=== PATIENT | female | born 1970 | race Caucasian/White ===

== ENCOUNTER → 2016-07-16 | Outpatient (CLI) | payer BC ==
[~2016-07-16] MED LIST: AMIT50TA3 PO; BUTA-234; CLON1TAB3 PO; CTLP20T PO; FURO-124 PO; HYDR-3584 PO; IBUP-15 PO; LURA80TA3 PO; OMG1KC; OXYC-197 PO; POTA10CA43 PO; PRAM1.5T4; PROM25SU43 RC; PROP10TA8; ROSU5TAB PO; RPN.25T PO
--- NOTE | 2016-07-16 15:32 | Diagnostic Imaging Report ---
PROCEDURE: US Thyroid. TECHNIQUE: Multiple real-time grayscale images were obtained of the thyroid in various projections. INDICATION: Thyroid nodules follow-up. COMPARISON: 01/02/2016. FINDINGS: The right thyroid lobe is 3.6 x 1.3 x 1 cm. Left lobe is 2.8 x 1.3 x 0.9 cm. There is a 0.5 cm hypoechoic thyroid nodule in the upper right thyroid lobe and in the lower left lobe another nodule measuring 1.1 x 0.5 x 0.6 cm. Both nodules are similar to 01/02/2016. IMPRESSION: Stable bilateral thyroid nodules up to 1.1 cm in the lower left thyroid lobe likely related to multinodular goiter. Dictated by: Dictated on workstation # [id number]
== END ==
LOC: RAD 10:52
PROVIDERS: ATTEND Internal Medicine Endocrinology, Diabetes & Metabolism
DX: E04.1 Nontoxic single thyroid nodule (principal)
CPT/HCPCS: 76536

== ENCOUNTER 2017-04-04 13:38 | Outpatient (RCR) | payer BC ==
[~2017-04-04 13:38] MED LIST changes: -IBUP-15 PO; +IBUP-16 PO
== END 2017-07-03 | disposition home or self-care (01) ==
LOC: ONC 13:38
PROVIDERS: ATTEND Internal Medicine Hematology & Oncology
DX: D68.51 Activated protein C resistance (principal); F31.32 Bipolar disorder, current episode depressed, moderate; E66.9 Obesity, unspecified; Z68.41 Body mass index [BMI] 40.0-44.9, adult; Z86.718 Personal history of other venous thrombosis and embolism; Z79.899 Other long term (current) drug therapy
CPT/HCPCS: 99214

== ENCOUNTER 2017-05-17 12:03 | Outpatient (RCR) | payer BC | END 2017-06-18 | disposition home or self-care (01) | PROVIDERS: ATTEND Orthopaedic Surgery | DX: Z47.89 Encounter for other orthopedic aftercare (principal) ==

== ENCOUNTER 2017-10-03 09:30 | Outpatient (RCR) | payer BC ==
[~2017-10-03 09:30] MED LIST changes: +CLON1TAB13 PO; -CLON1TAB3 PO; -OXYC-197 PO; +OXYC1TAB87 PO
[2017-10-03 09:45] LABS: BASOPHILS % (AUTO) 0 % (0-10); EOSINOPHILS # (AUTO) 0.1 10^3/uL (0.0-0.3); EOSINOPHILS % (AUTO) 1 % (0-10); HEMATOCRIT 40 % (35-52); HEMOGLOBIN 13.3 G/DL (11.5-16.0); LYMPHOCYTES % (AUTO) 38 % (12-44); MEAN CORPUSCULAR HEMOGLOBIN 32 PG (25-34); MEAN CORPUSCULAR HGB CONC 33 G/DL (32-36); MEAN CORPUSCULAR VOLUME 96 FL (80-99); MEAN PLATELET VOLUME 9.8 FL (7.4-10.4); MONOCYTES # (AUTO) 0.5 X 10^3 (0.0-1.0); MONOCYTES % (AUTO) 9 % (0-12); NEUTROPHILS # (AUTO) 2.8 X 10^3 (1.8-7.8); NEUTROPHILS % (AUTO) 52 % (42-75); PLATELET COUNT 177 10^3/uL (130-400); RED BLOOD COUNT 4.18 10^6/uL (4.35-5.85); RED CELL DISTRIBUTION WIDTH 13.7 % (10.0-14.5); WHITE BLOOD COUNT 5.4 10^3/uL (4.3-11.0)
[2017-10-03 10:07] LABS: ALBUMIN 3.9 GM/DL (3.2-4.5); BILIRUBIN,TOTAL 0.3 MG/DL (0.1-1.0); CALCIUM 9.2 MG/DL (8.5-10.1); CREATININE SERUM 1.01 MG/DL (0.60-1.30); POTASSIUM 3.9 MMOL/L (3.6-5.0); TOTAL PROTEIN 6.3 GM/DL (6.4-8.2)
== END 2017-10-29 | disposition home or self-care (01) ==
LOC: ONC 09:30
PROVIDERS: ATTEND Internal Medicine Hematology & Oncology
DX: D68.51 Activated protein C resistance (principal); F31.32 Bipolar disorder, current episode depressed, moderate; E66.9 Obesity, unspecified; Z68.41 Body mass index [BMI] 40.0-44.9, adult; Z86.718 Personal history of other venous thrombosis and embolism; Z79.899 Other long term (current) drug therapy
CPT/HCPCS: 36415; 80053; 85025; 99213

== ENCOUNTER 2018-01-09 13:53 | Emergency (ER) | payer BC ==
[~2018-01-09] VITALS: Ht 162.6 cm; Wt 104.3 kg
--- OUTSIDE RECORDS SUMMARY | 2018-01-09 14:03 | XMS REPORT | Clinical Summary ---
Author Author [facility] Organization [facility] Address Unknown Phone Unavailable Care Team Providers Care Petroleum Terminal Plant Operator Name Role Phone Yaquelin Dye MD PCP Source Comments Some departments are not documenting in the electronic medical record. If you do not see the information that you expected, contact Release of Information in the Health Information Management department at [phone] for further assistance in locating additional records.[facility] Allergies Active Allergy Reactions Severity Noted Date Comments Tramadol UNKNOWN Low 10/24/2016 Current Medications Prescription Sig. Disp. Refills Start End Date Status Date levothyroxine (SYNTHROID) Take 50 mcg by mouth Active 75 mcg tablet daily 30 minutes before breakfast. rivaroxaban (XARELTO) 15 Take 20 mg by mouth twice Active mg tablet daily. Take with food. furosemide (LASIX) 40 mg Take 40 mg by mouth every Active tablet morning. clonazePAM (KLONOPIN) 0.5 Take 0.5 mg by mouth Active mg tablet three times daily. tiZANidine (ZANAFLEX) 2 Take 2 mg by mouth three Active mg tablet times daily. divalproex (DEPAKOTE ER) Take 1,000 mg by mouth at Active 500 mg ER tablet bedtime daily. Take with food. rosuvastatin (CRESTOR) 5 Take 5 mg by mouth daily. Active mg tablet butalbital/acetaminophen/ Take 1 Tab by mouth every Active caffeine(+) (FIORICET) 4 hours as needed for 50/325/40 mg tablet Headache. rizatriptan (MAXALT) 10 Take 10 mg by mouth once Active mg tablet as needed. May repeat in 2 hours in needed diclofenac(+) (VOLTAREN) 10/21/19 Active 1 % topical gel 17 BOTOX 100 unit injection 10/24/19 Active 17 potassium chloride(+) 10/10/19 Active (MICRO-K) 10 mEq capsule 17 buPROPion SR(+) Take 150 mg by mouth Active (WELLBUTRIN-SR) 150 mg twice daily. tablet PASSION FLOWER PO Take 360 mg by mouth Active twice daily. valbenazine (INGREZZA) 80 Take 80 mg by mouth 30 capsule 5 09/24/19 Active mg cap daily. 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 After developing the tardive dyskinesia her headaches became more severe and more frequent, occurring 20 or more days a month, they were unilateral, pounding associated with nausea, phonophobia and photophobia. Since starting Botox injections she now has a headache every two to three weeks. Essential tremor 03/27/2017 Overview: This has become more of a problem in late 2016. It interferes with her ability to write, eat and drink. While she may have a tremor at rest it is the action induced tremor that is most bothersome to her. 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 Had also been on Brexipiprazole in 2014 as well. Movements of face, mouth, both arms and ocassional feet. Most bothersome is constant blinking. Cogentin-no benefit Clonazepam-no benefit Trihexyphenidyl, no benefit L ast Assessment & Plan: Overall she is doing better on the valbenazine. However her blepharospasm component is still bothersome and she had meagre benefit from her last round on February 05, which has by now worn off. She will contact Herlinda Vickers and I will take over her blepharospasm and headache injections. Encounters Date Type Specialty Care Team Description 11/13/2017 Refill Neurology Cuco Gregg MD 11/07/2017 Procedure visit Neurology Cuco Gregg MD Intractable migraine with aura with status migrainosus (Primary Dx); Essential tremor; Blepharospasm 10/29/2017 Telephone Neurology Cuco Gregg MD Worsening Symptoms 10/16/2017 Refill Neurology Cuco Gregg MD from Last 3 Months Family History Medical History Relation Name Comments Thyroid Disease Daughter Cancer Father Cancer-Thyroid Father Heart Disease Father Hypertension Father Neuropathy Father Thyroid Disease Father Tremor Father Hypertension Mother Migraines Sister Thyroid Disease Sister Relation Name Status Comments Daughter Father Mother Sister Social History Tobacco Use Types Packs/Day Years Used Date Never Smoker Smokeless Tobacco: Never Used Alcohol Use Drinks/Week oz/Week Comments Yes Sex Assigned at Date Recorded Not on file Last Filed Vital Signs Vital Sign Reading Time Taken Blood Pressure 113/71 03/27/2017 10:49 AM SEAM CLOSER Pulse 60 03/27/2017 10:49 AM SEAM CLOSER Temperature - - Respiratory Rate - - Oxygen Saturation - - Inhaled Oxygen - - Concentration Weight 112 kg (247 lb) 03/27/2017 10:49 AM SEAM CLOSER Height 162.6 cm (5' 4") 03/27/2017 10:49 AM SEAM CLOSER Body Mass Index 42.4 03/27/2017 10:49 AM SEAM CLOSER Plan of Treatment Health Maintenance Due Date Last Done Comments PHYSICAL (COMPREHENSIVE) 1977 EXAM PERTUSSIS VACCINE 1981 HIV SCREENING 1985 TETANUS VACCINE 12/11/1987 CERVICAL CANCER SCREENING 2000 BREAST CANCER SCREENING 2010 INFLUENZA VACCINE 10/30/2017 12/23/2013, 12/19/2011, 02/07/2011 Procedures Procedure Name Priority Date/Time Associated Diagnosis Comments [place] CHEMODNRVTJ [facility] Routine 11/07/2017 Blepharospasm Results for this INNERVATED FACIAL NRV 10:30 AM CDT Intractable migraine with procedure are in the UNIL aura with status results section. migrainosus ID CHEMODERVATE Routine 11/07/2017 Blepharospasm Results for this FACIAL/TRIGEM/CERV MUSC 10:30 AM CDT Intractable migraine with procedure are in the MIGRAINE aura with status results section. migrainosus from Last 3 Months Results * CHEMODENERVATION (11/07/2017 10:30 AM) Narrative Performed At Cuco Gregg MD 11/07/2017 11:00 AM IN CLINIC Botulinum Toxin injection for blepharospasm Diagnosis Blepharospam Description of Movements: involuntary blinking to the point of causing visual impairment Biological: Botox (botulinum toxin strain A) Dose in Units: 195 total Units drawn up 200 Units discarded 5 Last Round: 08/08/17 Benefit: Limited Adverse effects none [facility]ear off date unknown [facility] Rating Scale (0-4):4 Additional notes eyelid blinking is still very bothersome with impairment of vision and trouble driving Procedure Using a concentration of 5 units/0.1cc Botox was injected into these muscles: Right Left Pre-tarsal orbicularis oculi 2 x 3.75 2 x 3.75 Facial portion of orbicularis oculi 7.6 and 5 7.5 and 5 Infra-orbital portion of the orbicularis oculi - - Director Of Community Services supercilli - - Legend for injections: - indicates that clinically the muscle was not actively involved 2 x 2.5indicates that two injections of2.5 units were performed Adverse effects at time of injection: none Botulinum toxin injection for chronic daily headaches Prior to injection with Botox they had more than 20 headache days per month, with an average duration of 4 hours or more, and at least half had migrainous features. Headache frequency between the start of benefit and the wearing off of the last round of injections: only one headache day a month Benefit: Very good Adverse effects none Wear off date a few days ago Additional notes see below Procedure Note: The biological was diluted with preservative free normal saline to a concentration of 5 units/ 0.1 cc, the patient received 31 injections of five units of Botox into the face, head, neck and shoulder locations for the PREEMPT protocol (Sandra LADD, and coauthors. Cephalalgia, 2010;30:793) Right Left Procerus One in the midline Director Of Community Services supercilli one one Frontalis two two Temporalis four four Occipitalis three three Sub-occipital two two Tapezius three three Adverse effects at time of injection: some brusining Target time for next injection: 13 weeks Was patient given the biological specific REMS sheet? 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 The tremor is severe enough that it impairs her ability to feed herself, write and to use a keyboard On examination her tremor is slow, more rest and postural than action, with pronation and supination of her foreatrms Performing Organization Address [facility] from Last 3 Months
--- OUTSIDE RECORDS SUMMARY | 2018-01-09 14:03 | XMS REPORT | Encounter Summary ---
Author Author [facility] Organization [facility] Address Unknown Phone Unavailable Care Team Providers Care Processing Technician Name Role Phone Yaquelin Dye MD PCP Reason for Visit * Reason Comments Medication Refill Encounter Details Date Type Department Care Team Description 10/16/2017 Refill [facility] Cuco Gregg MD Physicians-Neurology [address] [facility]note 3[facility] on A[facility] [place] [address] [place] [address] [place], [place] [phone] Social History Tobacco Use Types Packs/Day Years Used Date Never Smoker Smokeless Tobacco: Never Used Alcohol Use Drinks/Week oz/Week Comments Yes Sex Assigned at Date Recorded Not on file as of this encounter Miscellaneous Notes * Telephone Encounter - Cuco Gregg MD - 10/16/2017 11:52 AM CDT OK to refill * Telephone Encounter - Sarah Felton LPN - 10/16/2017 8:33 AM CDT Is this ok to refill? in this encounter Plan of Treatment Not on fileas of this encounter Visit Diagnoses Not on filein this encounter
--- OUTSIDE RECORDS SUMMARY | 2018-01-09 14:03 | XMS REPORT | Encounter Summary ---
Author Author [facility] Organization [facility] Address Unknown Phone Unavailable Care Team Providers Care Edger Runner Name Role Phone Yaquelin Dye MD PCP Reason for Visit * Reason Comments Medication Refill Encounter Details Date Type Department Care Team Description 11/13/2017 Refill [facility] Cuco Gregg MD Physicians-Neurology [address] [facility] A[facility] [place] [address] [place] [address] [place], [place] [phone] Social History Tobacco Use Types Packs/Day Years Used Date Never Smoker Smokeless Tobacco: Never Used Alcohol Use Drinks/Week oz/Week Comments Yes Sex Assigned at Date Recorded Not on file as of this encounter Plan of Treatment Not on fileas of this encounter Visit Diagnoses Not on filein this encounter
--- OUTSIDE RECORDS SUMMARY | 2018-01-09 14:03 | XMS REPORT ---
Author Author JOSH CHOI [facility] Address [address] [place] [address] Care Team Providers Care Ornamental Ironworking Supervisor Name Role Phone JOSH CHOI Unavailable PROBLEMS ALLERGIES No Information ENCOUNTERS IMMUNIZATIONS No Known Immunizations SOCIAL HISTORY No smoking Hx information available REASON FOR VISIT PLAN OF CARE VITAL SIGNS MEDICATIONS RESULTS No Results PROCEDURES No Known procedures INSTRUCTIONS MEDICATIONS ADMINISTERED No Known Medications MEDICAL (GENERAL) HISTORY
--- OUTSIDE RECORDS SUMMARY | 2018-01-09 14:03 | XMS REPORT | Encounter Summary ---
Author Author [facility] Organization [facility] Address Unknown Phone Unavailable Care Team Providers Care Professor Of Criminal Justice Name Role Phone Yaquelin Dye MD PCP Reason for Visit * Reason Comments Procedure Encounter Details Date Type Department Care Team Description 11/07/2017 Procedure visit [facility] Cuco Gregg MD Intractable migraine with Physicians-Neurology [address] [facility] aura with status [facility] [place] migrainosus (Primary Dx); [address] [place] [address] Essential tremor; [place], [place] [phone] Blepharospasm [id number] [phone] Social History Tobacco Use Types Packs/Day Years Used Date Never Smoker Smokeless Tobacco: Never Used Alcohol Use Drinks/Week oz/Week Comments Yes Sex Assigned at Date Recorded Not on file as of this encounter Procedure Notes * Cuco Gregg MD - 11/07/2017 10:30 AM CDT Associated Order(s): CHEMODENERVATION Procedure(s): [place] CHEMODNRVTJ MUSC MUSC INNERVATED FACIAL NRV UNIL; [place] CHEMODERVATE FACIAL/TRIGEM/CERV MUSC MIGRAINE Pre-Procedure Diagnose(s): Blepharospasm; Intractable migraine with aura with status migrainosus Formatting of this note may be different from the original. Botulinum Toxin injection for blepharospasm Diagnosis Blepharospam Description of Movements: involuntary blinking to the point of causing visual impairment Biological: Botox (botulinum toxin strain A) Dose in Units: 195 total Units drawn up 200 Units discarded 5 Last Round: 08/08/17 Benefit: Limited Adverse effects none Wear off date unknown Current [facility] Blepharospasm Rating Scale (0-4):4 Additional notes eyelid blinking is still very bothersome with impairment of vision and trouble driving Procedure Using a concentration of 5 units/0.1cc Botox was injected into these muscles: Right Left Pre-tarsal orbicularis oculi 2 x 3.75 2 x 3.75 Facial portion of orbicularis oculi 7.6 and 5 7.5 and 5 Infra-orbital portion of the orbicularis oculi - - Recreational Specialist supercilli - - Legend for injections: - indicates that clinically the muscle was not actively involved 2 x 2.5 indicates that two injections of 2.5 units were performed Adverse effects at time [...] Right Left Procerus One in the midline Recreational Specialist supercilli one one Frontalis two two Temporalis four four Occipitalis three three Sub-occipital two two Tapezius three three Adverse effects at time of injection: some brusining Target time for next injection: 13 weeks Was patient given the biological specific REMS sheet? No Lot number:[id number] Expiry date:08/2020 Overall her blinking has worsened [...] with pronation and supination of her foreatrms in this encounter Plan of Treatment Not on fileas of this encounter Procedures Procedure Name Priority Date/Time Associated Diagnosis Comments [place] CHEMODNRVTJ MUSC MUSC Routine 11/07/2017 Blepharospasm Results for this INNERVATED FACIAL NRV 10:30 AM CDT Intractable migraine with procedure are in the UNIL aura with status results section. migrainosus [place] CHEMODERVATE Routine 11/07/2017 Blepharospasm Results for this FACIAL/TRIGEM/CERV MUSC 10:30 AM CDT Intractable migraine with procedure are in the MIGRAINE aura with status results section. migrainosus in this encounter Results * CHEMODENERVATION (11/07/2017 10:30 AM) Narrative [...] effects none Wear off date unknown Current [facility] Blepharospasm Rating Scale (0-4):4 Additional notes eyelid blinking is still very bothersome with impairment of vision and trouble driving Procedure Using a concentration of 5 units/0.1cc Botox was injected into these muscles: Right Left Pre-tarsal orbicularis oculi 2 x 3.75 2 x 3.75 Facial portion of orbicularis oculi 7.6 and 5 7.5 and 5 Infra-orbital portion of the orbicularis oculi - - Recreational Specialist supercilli - - Legend for injections: - [...] Right Left Procerus One in the midline Recreational Specialist supercilli one one Frontalis two two Temporalis four four Occipitalis three three Sub-occipital two two Tapezius three three Adverse effects at time of injection: some brusining Target time for next injection: 13 weeks Was patient given the biological specific REMS sheet? No Lot number:[id number] Expiry date:08/2020 Overall her blinking has worsened [...] supination of her foreatrms Performing Organization Address City/State/Zipcode Phone Number IN CLINIC in this encounter Visit Diagnoses Diagnosis Intractable migraine with aura with status migrainosus - Primary Migraine with aura, with intractable migraine, so stated, with status migrainosus Essential tremor Essential and other specified forms of tremor Blepharospasm Administered Medications Medication Order MAR Action Action Date Dose Rate Site botulinum toxin A (BOTOX) injection 195 Given 11/07/2017 195 Units Face Units 11:00 CDT 195 Units, Intramuscular, ONCE, 1 dose, [place] 11/07/17 at 1045 in this encounter
--- OUTSIDE RECORDS SUMMARY | 2018-01-09 14:03 | XMS REPORT | Encounter Summary ---
Author Author [facility] Organization [facility] Address Unknown Phone Unavailable Care Team Providers Care Sports Writer Name Role Phone Yaquelin Dye MD PCP Reason for Referral * Consult, Test & Treat Status Reason Specialty Diagnoses / Referred By Referred To Procedures Contact Contact No Auth Needed Specialty Neurology Diagnoses Ade Gregg Rajesh, MD Services Essential tremor Cuco Silva MD [address] [facility] Required [address] [facility] [address] [place], [place] [id number] [place], [place] Phone: [phone] Phone: Scheduling Instructions Contact Phone Numbers for each area if questions arise: General: [phone] Epilepsy: [phone] Multiple Sclerosis: [phone] Parkinson's: [phone] [facility]: 6348 Stroke & Neuromuscular: [phone] [place]: [phone] Reason for Visit * Reason Comments Worsening Symptoms Encounter Details Date Type Department Care Team Description 10/29/2017 Telephone [facility] Cuco Gregg MD Worsening Symptoms Physicians-Neurology [address] [facility] on A[facility] [place] [address] [place] [address] [place], [place] [phone] Social History Tobacco Use Types Packs/Day Years Used Date Never Smoker Smokeless Tobacco: Never Used Alcohol Use Drinks/Week oz/Week Comments Yes Sex Assigned at Date Recorded Not on file as of this encounter Miscellaneous Notes * Telephone Encounter - Sarah FeltonRICK - 10/30/2017 8:33 AM CDT This nurse informed patient of Dr. Gregg's recommendation. Patient verbalized understanding and would like to move forward with a consult to see Dr. Booker. Referral sent and patient to be scheduled. * Telephone Encounter - Sarah FeltonRICK - 10/29/2017 3:26 PM CDT Okay, I will get an approval from the patient. Is patient to keep her upcoming appointment with you in addition to seeing Dr. Booker? * Telephone Encounter - Cuco Gregg MD - 10/29/2017 2:32 PM CDT I would like to refer her to Dr. Booker for his opinion and management of her tremor. If this is acceptable, I can place the consult request in O2. * Telephone Encounter - Sarah FletonRICK - 10/29/2017 2:16 PM CDT Patient called stating her tremors have gotten worse and states she does not think the primidone is helping anymore. Patient wanting to see about trying something different prior to her upcoming appointment in hopes she will have some relief before then. Please advise. in this encounter Plan of Treatment Name Priority Associated Diagnoses Order Schedule AMB REFERRAL TO NEUROLOGY Routine Essential tremor Ordered: 10/30/2017 as of this encounter Visit Diagnoses Diagnosis Essential tremor - Primary Essential and other specified forms of tremor
--- OUTSIDE RECORDS SUMMARY | 2018-01-09 14:04 | XMS REPORT ---
Author Author JOSH CHOI [facility] Address [address] [place] [address] Care Team Providers Care Intelligent Systems Engineer Name Role Phone JOSH CHOI Unavailable PROBLEMS Type Condition ICD9-CM Code OML66-VI Code Onset Dates Condition Status SNOMED Code Problem Long-term use of high-risk medication Z79.899 Active 232077802 Problem Social anxiety disorder F40.10 Active 56256289 Problem Bipolar affective disorder, current episode hypomanic F31.0 Active 86300821 Problem Bipolar disorder, current episode depressed, severe, without psychotic features F31.4 Active 312405647 Problem Tardive dyskinesia G24.01 Active 240970040 Problem Bipolar 1 disorder, depressed, moderate F31.32 Active 57000956 Problem Bipolar disorder, in partial remission, most recent episode depressed F31.75 Active 14225495 Problem BMI 40.0-44.9, adult Z68.41 Active 536719035 ALLERGIES Substance Reaction Event Type Date Status Latuda TD Drug Allergy Oct, Active Tramadol HCl Unknown Drug Allergy Oct, Active ENCOUNTERS Encounter Location Date Diagnosis [place] [id number] [address] Dec, [facility] [address] [address] Nov, [facility] [address] [address] 18 Nov, 2017 Bipolar affective disorder, current episode hypomanic F31.0 ; Social anxiety disorder F40.10 ; Tardive dyskinesia G24.01 and Long-term use of high-risk medication Z79.899 [facility] [id number] [address] Nov, [facility] [address] [address] Oct, Bipolar 1 disorder, depressed, moderate F31.32 ; Social anxiety disorder F40.10 ; Tardive dyskinesia G24.01 and Long-term use of high- risk medication Z79.899 [place] [address] [address] Sep, [place] [id number] [place] [address]51- [address]191 Aug, Bipolar disorder, in partial remission, most recent episode depressed F31.75 ; Social anxiety disorder F40.10 ; Long-term use of high-risk medication Z79.899 and Tardive dyskinesia G24.01 [place] [address] [place] [address]19- 9219 July, [place] [id number] [place] [address] 18452- 1761 July, BMI 40.0-44.9, adult Z68.41 ; Social anxiety disorder F40.10 ; Bipolar disorder, in partial remission, most recent episode depressed F31.75 ; Parkinson disease G20 ; Tardive dyskinesia G24.01 and Long-term use of high-risk medication Z79.899 [place] [address] [place] [address] 58782- 6433 May, [place] [address] [place] [address] 64632- 2930 May, [place] [address] [place] [address] 56799- 9589 May, [place] [id number] [place] [address] 87761- 8170 13 May, 2017 Bipolar disorder, current episode depressed, severe, without psychotic features F31.4 ; Social anxiety disorder F40.10 ; Long-term use of high-risk medication Z79.899 ; Tardive dyskinesia G24.01 and Parkinson disease G20 [place] [id number] [place] [address] 53165- 3887 May, [place] [id number] [place] [address] 02670- 0101 May, Bipolar 1 disorder, depressed, moderate F31.32 ; BMI 40.0- 44.9, adult Z68.41 ; Social anxiety disorder F40.10 ; Long-term use of high- risk medication Z79.899 ; Parkinson disease G20 and Tardive dyskinesia G24.01 [place] [id number] [place] [address] 55287- 0202 May, BMI 40.0-44.9, adult Z68.41 ; Bipolar 1 disorder, depressed , moderate F31.32 ; Social anxiety disorder F40.10 ; Long-term use of high-risk medication Z79.899 and Tardive dyskinesia G24.01 [place] [id number] [place] [address] 11719- 2483 Apr, [place] [id number] [place] [address] 46511- 5955 Mar, Bipolar 1 disorder, depressed, moderate F31.32 ; Social anxiety disorder F40.10 ; Long-term use of high-risk medication Z79.899 ; Tardive dyskinesia G24.01 and Parkinson disease G20 [place] [address] [address] Mar, [place] [id number] [place] [address] 81470- 2189 Dec, Bipolar 1 disorder, depressed, moderate F31.32 ; Social anxiety disorder F40.10 ; Tardive dyskinesia G24.01 ; Parkinson disease G20 and Long-term use of high-risk medication Z79.899 [place] [address] [place] [address] 18187- 1506 Nov, [place] [id number] [place] [address] 42189- 2055 Oct, [facility] [address] [address] Sep, Bipolar 1 disorder, depressed, moderate F31.32 ; Social anxiety disorder F40.10 ; Tardive dyskinesia G24.01 and Long-term use of high- risk medication Z79.899 [facility] [address] [address] July, Bipolar 1 disorder, depressed, moderate F31.32 ; Social anxiety disorder F40.10 and Long-term use of high-risk medication Z79.899 [facility] [address] [address] July, [facility] [address] [address] Jun, [facility] [id number] [place] [address] 28171- 4736 Jun, [facility] [address] [address] 20[address] Jun, [facility] [address] [address] Jun, Bipolar 1 disorder, depressed, moderate F31.32 ; Social anxiety disorder F40.10 and Long-term use of high-risk medication Z79.899 [facility] [address] [address] 7[address] Jun, [facility] [address] [address]- [address] Jun, [facility] [address] [address] 5[address] May, [facility] [address] [address]- 80[address] May, Bipolar 1 disorder, depressed, moderate F31.32 ; Social anxiety disorder F40.10 and Long-term use of high-risk medication Z79.899 IMMUNIZATIONS No Known Immunizations SOCIAL HISTORY Never Assessed REASON FOR VISIT f/u CALE Nix PLAN OF CARE Activity Details Follow Up 4 Weeks Reason: VITAL SIGNS Height 64.0 in 2017-11-14 Weight 228.6 lbs 2017-11-14 Heart Rate 76 bpm 2017-11-14 Respiratory Rate 20 2017-11-14 BMI 39.23 kg/m2 2017-11-14 Blood pressure systolic 114 mmHg 2017-11-14 Blood pressure diastolic 68 mmHg 2017-11-14 MEDICATIONS Medication Instructions Dosage Frequency Start Date End Date Duration Status [place] Carbonate 300 MG Orally Once a day 1 capsule at bedtime 24h May Active Tizanidine HCl 2 MG Orally Three times a day 1 tablet as needed 8h Active Depakote ER 500 mg Orally Once a day. 2 tablets Active Wellbutrin SR 200 mg Orally Twice a day 1 tablet 12h July, Active Potassium Chloride 10 MEQ Orally Twice a day 1 capsule with food 12h Active Passion Flower-Valerian 360mg Orally 2 times a day 1 capsule 12h Active Botox 100 UNIT Active Xarelto 20 MG Orally Once a day 1 tablet with food 24h Active Furosemide 40 MG Orally Once a day 1 tablet 24h Active Fioricet/Codeine 88-027-07-30 MG Orally every 4 hrs 1 capsule as needed 4h Active Primidone 50 mg Orally once a day 3 tablet 24h Active Levothyroxine Sodium 50 MCG Orally Once a day 1 tablet on an empty stomach in the morning 24h Active Crestor 5 MG Orally Once a day 1 tablet 24h Active Klonopin 0.5 MG Orally 1-2 times per day as needed for anxiety and movement disorder 1 tablet Active Ingrezza 40 MG Orally Once a day in the PM 2 capsules Active Mirtazapine 7.5 MG Orally Once a day 1 tablets at bedtime 24h Oct, 30 day(s) Active Maxalt 5 MG Orally for migraine 1 tablet as needed one time Active RESULTS No Results PROCEDURES No Known procedures INSTRUCTIONS MEDICATIONS ADMINISTERED No Known Medications MEDICAL (GENERAL) HISTORY Type Description Date Medical History Bipolar I Disorder depressed moderate Medical History Obesity Medical History 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
--- OUTSIDE RECORDS SUMMARY | 2018-01-09 14:04 | XMS REPORT ---
Author Author JOSH CHOI Organization [facility] Address [address] [place] [address] Care Team Providers Care Director Of Income Tax Name Role Phone JOSH CHOI Unavailable PROBLEMS Type Condition ICD9-CM Code OPK45-VW Code Onset Dates Condition Status SNOMED Code Problem Long-term use of high-risk medication Z79.899 Active 515924198 Problem Social anxiety disorder F40.10 Active 36279574 Problem Bipolar affective disorder, current episode hypomanic F31.0 Active 08855905 Problem Bipolar disorder, current episode depressed, severe, without psychotic features F31.4 Active 412508221 Problem Tardive dyskinesia G24.01 Active 310816054 Problem Bipolar 1 disorder, depressed, moderate F31.32 Active 22541941 Problem Bipolar disorder, in partial remission, most recent episode depressed F31.75 Active 28760903 Problem BMI 40.0-44.9, adult Z68.41 Active 015761015 ALLERGIES No Information ENCOUNTERS Encounter Location Date Diagnosis [place] [address] [place] [address] 39389- 5978 Dec, [place] [address] [place] [id number] [place] [address] 47996- 2372 Nov, [place] [id number] [place] [address] 15467- 2711 18 Nov, 2017 Bipolar affective disorder, current episode hypomanic F31.0 ; Social anxiety disorder F40.10 ; Tardive dyskinesia G24.01 and Long-term use of high-risk medication Z79.899 [place] [address] [place] [id number] [place] [address] 19017- 2937 Nov, [place] [address] [place] [id number] [place] [address] 75433- 2844 Oct, Bipolar 1 disorder, depressed, moderate F31.32 ; Social anxiety disorder F40.10 ; Tardive dyskinesia G24.01 and Long-term use of high- risk medication Z79.899 [facility] [address] [place] [address] 25184- 7243 Sep, [facility] [address], [place] [address]- 7931 Aug, Bipolar disorder, in partial remission, most recent episode depressed F31.75 ; Social anxiety disorder F40.10 ; Long-term use of high-risk medication Z79.899 and Tardive dyskinesia G24.01 [facility] [id number] [place] [address] 16370- 7670 July, [facility] [id number] [place] [address] 79607- 9055 July, BMI 40.0-44.9, adult Z68.41 ; Social anxiety disorder F40.10 ; Bipolar disorder, in partial remission, most recent episode depressed F31.75 ; Parkinson disease G20 ; Tardive dyskinesia G24.01 and Long-term use of high-risk medication Z79.899 [facility] [id number] [place] [address] 43914- 1464 May, [facility] [address], [place] [address]- 8040 May, [facility] [id number] [place] [address] 20490- 7816 May, [facility] [id number] [place] [address] 75848- 1379 13 May, 2017 Bipolar disorder, current episode depressed, severe, without psychotic features F31.4 ; Social anxiety disorder F40.10 ; Long-term use of high-risk medication Z79.899 ; Tardive dyskinesia G24.01 and Parkinson disease G20 [facility] [address] [place] [address] 97402- 8675 May, [place] [address] [place] [address] 26600- 6698 May, Bipolar 1 disorder, depressed, moderate F31.32 ; BMI 40.0- 44.9, adult Z68.41 ; Social anxiety disorder F40.10 ; Long-term use of high- risk medication Z79.899 ; Parkinson disease G20 and Tardive dyskinesia G24.01 [place] [id number] [place] [address] 19307- 9094 May, BMI 40.0-44.9, adult Z68.41 ; Bipolar 1 disorder, depressed , moderate F31.32 ; Social anxiety disorder F40.10 ; Long-term use of high-risk medication Z79.899 and Tardive dyskinesia G24.01 [place] [id number] [place] [address] 81871- 7206 Apr, [place] [address] [address]- 9973 Mar, Bipolar 1 disorder, depressed, moderate F31.32 ; Social anxiety disorder F40.10 ; Long-term use of high-risk medication Z79.899 ; Tardive dyskinesia G24.01 and Parkinson disease G20 [place] [id number] [place] [address] 60855- 1843 Mar, [place] [id number] [place] [address] 06133- 1655 Dec, Bipolar 1 disorder, depressed, moderate F31.32 ; Social anxiety disorder F40.10 ; Tardive dyskinesia G24.01 ; Parkinson disease G20 and Long-term use of high-risk medication Z79.899 [place] [id number] [place] [address] 20908- 8442 Nov, [place] [address] [id number] [place] [address] 53670- 8396 Oct, [place] [id number] [place] [address] 21451- 4825 Sep, Bipolar 1 disorder, depressed, moderate F31.32 ; Social anxiety disorder F40.10 ; Tardive dyskinesia G24.01 and Long-term use of high- risk medication Z79.899 [facility] [address], [place] [address]- 9483 July, Bipolar 1 disorder, depressed, moderate F31.32 ; Social anxiety disorder F40.10 and Long-term use of high-risk medication Z79.899 [facility] [address], [place] [address]- 5336 July, [facility] [address] [place] [id number] [place] [address] 43661- 7908 Jun, [facility] [address], [place] [address]- 4999 Jun, [place] [address], [place] [address]- 6682 Jun, [facility] [address], [place] [address]- 6978 Jun, Bipolar 1 disorder, depressed, moderate F31.32 ; Social anxiety disorder F40.10 and Long-term use of high-risk medication Z79.899 [facility] [address], [place] [address]- 7747 Jun, [facility] [address], [place] [address]- 1474 Jun, [facility] [address], [place] [address]- 8195 May, [facility] [address], [place] [address]- 8318 May, Bipolar 1 disorder, depressed, moderate F31.32 ; Social anxiety disorder F40.10 and Long-term use of high-risk medication Z79.899 IMMUNIZATIONS No Known Immunizations SOCIAL HISTORY Never Assessed REASON FOR VISIT med refill PLAN OF CARE VITAL SIGNS MEDICATIONS Medication Instructions Dosage Frequency Start Date End Date Duration Status [place] Carbonate 300 MG Orally Once a day 1 capsule at bedtime 24h May 30 days Active RESULTS No Results PROCEDURES No Known [...]
--- OUTSIDE RECORDS SUMMARY | 2018-01-09 14:04 | XMS REPORT ---
Author Author JOSH CHOI [facility] Address [address] [place] [address] Care Team Providers Care Team Lead Name Role Phone JIMBO JOSH Unavailable PROBLEMS Type Condition ICD9-CM Code ISD80-TL Code Onset Dates Condition Status SNOMED Code Problem Social anxiety disorder F40.10 Active 14043157 Problem Bipolar disorder, current episode depressed, severe, without psychotic features F31.4 Active 160015515 Problem Bipolar disorder, in partial remission, most recent episode depressed F31.75 Active 52248718 Problem Bipolar 1 disorder, depressed, moderate F31.32 Active 53672053 Problem Long-term use of high-risk medication Z79.899 Active 877676134 Problem BMI 40.0-44.9, adult Z68.41 Active 719332484 Problem Tardive dyskinesia G24.01 Active 520360222 ALLERGIES No Information ENCOUNTERS Encounter Location Date Diagnosis [place] [address] [place] [address] 87811- 8136 Nov, [place] [address] [place] [address] 31693- 7081 Oct, Bipolar 1 disorder, depressed, moderate F31.32 ; Social anxiety disorder F40.10 ; Tardive dyskinesia G24.01 and Long-term use of high- risk medication Z79.899 [place] [address] [place] [address] 39895- 7766 Sep, [place] [address] [place] [address] [id number] [place] [address] 77457- 9735 14 Aug, 2017 Bipolar disorder, in partial remission, most recent episode depressed F31.75 ; Social anxiety disorder F40.10 ; Long-term use of high-risk medication Z79.899 and Tardive dyskinesia G24.01 [place] [address], [place] [address]- 3530 July, [place] [address] [place] [address] [id number] [place] [address] 87481- 8143 July, BMI 40.0-44.9, adult Z68.41 ; Social anxiety disorder F40.10 ; Bipolar disorder, in partial remission, most recent episode depressed F31.75 ; Parkinson disease G20 ; Tardive dyskinesia G24.01 and Long-term use of high-risk medication Z79.899 [place] [address] [place] [id number] [place] [address] 33036- 6274 May, [place] [address] [place] [id number] [place] [address] 59000- 5343 May, [place] [address] [place] [id number] [place] [address] 43999- 3112 May, [place] [address] [place] [id number] [place] [address] 35155- 4780 May, Bipolar disorder, current episode depressed, severe, without psychotic features F31.4 ; Social anxiety disorder F40.10 ; Long-term use of high-risk medication Z79.899 ; Tardive dyskinesia G24.01 and Parkinson disease G20 [place] [address], [place] [address]- 6891 May, [place] [address] [place] [address] 60540- 5958 May, Bipolar 1 disorder, depressed, moderate F31.32 ; BMI 40.0- 44.9, adult Z68.41 ; Social anxiety disorder F40.10 ; Long-term use of high- risk medication Z79.899 ; Parkinson disease G20 and Tardive dyskinesia G24.01 [place] [address], [place] [address]- 3866 May, BMI 40.0-44.9, adult Z68.41 ; Bipolar 1 disorder, depressed , moderate F31.32 ; Social anxiety disorder F40.10 ; Long-term use of high-risk medication Z79.899 and Tardive dyskinesia G24.01 [facility] [id number] [place] [address] 83811- 5161 Apr, [facility] [id number] [place] [address] 75671- 8749 Mar, Bipolar 1 disorder, depressed, moderate F31.32 ; Social anxiety disorder F40.10 ; Long-term use of high-risk medication Z79.899 ; Tardive dyskinesia G24.01 and Parkinson disease G20 [facility] [id number] [place] [address] 43163- 4076 Mar, [place] [address] [place] [id number] [place] [address] 01813- 1010 Dec, Bipolar 1 disorder, depressed, moderate F31.32 ; Social anxiety disorder F40.10 ; Tardive dyskinesia G24.01 ; Parkinson disease G20 and Long-term use of high-risk medication Z79.899 [place] [address] [place] [id number] [place] [address] 68497- 6271 Nov, [place] [address] [place] [id number] [place] [address] 57173- 8737 Oct, [place] [address] [place] [id number] [place] [address] 65800- 5300 Sep, Bipolar 1 disorder, depressed, moderate F31.32 ; Social anxiety disorder F40.10 ; Tardive dyskinesia G24.01 and Long-term use of high- risk medication Z79.899 [facility] [address] [place] [address] 93200- 8172 July, Bipolar 1 disorder, depressed, moderate F31.32 ; Social anxiety disorder F40.10 and Long-term use of high-risk medication Z79.899 [facility] [address], [place] [address]- 0962 July, [place] [address], [place] [address]- 2114 Jun, [facility] [address], [place] [address]- 5689 Jun, [facility] [address], [place] [address]- 6035 Jun, [facility] [address] [place] [address] 26545- 2389 Jun, Bipolar 1 disorder, depressed, moderate F31.32 ; Social anxiety disorder F40.10 and Long-term use of high-risk medication Z79.899 [place] [address] [place] [address] 55826- 8514 Jun, [facility] [address] [place] [address] 03403- 9227 Jun, [facility] [address] [place] [address] 62730- 7114 May, [facility] [address], [place] [address]- 5404 May, Bipolar 1 disorder, depressed, moderate F31.32 ; Social anxiety disorder F40.10 and Long-term use of high-risk medication Z79.899 IMMUNIZATIONS No Known Immunizations SOCIAL HISTORY Never Assessed REASON FOR VISIT Medication question PLAN OF CARE VITAL SIGNS MEDICATIONS Medication Instructions Dosage Frequency Start Date End Date Duration Status Wellbutrin SR 200 MG Orally Twice a day 1 tablet July, 30 day(s) Active RESULTS No Results PROCEDURES No Known [...]
--- OUTSIDE RECORDS SUMMARY | 2018-01-09 14:04 | XMS REPORT ---
Author Author JOSH CHOI Organization [facility] Address [address] [place] [address] Care Team Providers Care Water Commissioner Name Role Phone JOSH CHOI Unavailable PROBLEMS Type Condition ICD9-CM Code [id number] Code Onset Dates Condition Status SNOMED Code Problem Social anxiety disorder F40.10 Active 82046910 Problem Bipolar disorder, current episode depressed, severe, without psychotic features F31.4 Active 126050082 Problem Bipolar disorder, in partial remission, most recent episode depressed F31.75 Active 71740911 Problem Bipolar 1 disorder, depressed, moderate F31.32 Active 62005619 Problem Long-term use of high-risk medication Z79.899 Active 591665914 Problem BMI 40.0-44.9, adult Z68.41 Active 835302488 Problem Tardive dyskinesia G24.01 Active 187452030 ALLERGIES Substance Reaction Event Type Date Status Latuda TD Drug Allergy Aug, Active Tramadol HCl Unknown Drug Allergy Aug, Active ENCOUNTERS Encounter Location Date Diagnosis [place] [id number] [id number] [place] [address] 75444- 2302 Nov, [place] [id number] [place] [address] 42914- 9386 Oct, Bipolar 1 disorder, depressed, moderate F31.32 ; Social anxiety disorder F40.10 ; Tardive dyskinesia G24.01 and Long-term use of high- risk medication Z79.899 [place] [address] [place] [address] 06334- 6523 Sep, [place] [address] [place] [address] 97058- 8037 Aug, Bipolar disorder, in partial remission, most recent episode depressed F31.75 ; Social anxiety disorder F40.10 ; Long-term use of high-risk medication Z79.899 and Tardive dyskinesia G24.01 [place] [address] [address] 6247 July, [place] [address] [place] [id number] [place] [address] 16020- 2490 July, BMI 40.0-44.9, adult Z68.41 ; Social anxiety disorder F40.10 ; Bipolar disorder, in partial remission, most recent episode depressed F31.75 ; Parkinson disease G20 ; Tardive dyskinesia G24.01 and Long-term use of high-risk medication Z79.899 [place] [address] [id number] [place] [address] 70559- 3131 May, [place] [address] [id number] [place] [address] 17801- 0517 May, [place] [address] [id number] [place] [address] 12476- 3869 May, [place] [address] [id number] [place] [address] 96244- 4893 May, Bipolar disorder, current episode depressed, severe, without psychotic features F31.4 ; Social anxiety disorder F40.10 ; Long-term use of high-risk medication Z79.899 ; Tardive dyskinesia G24.01 and Parkinson disease G20 [place] [address] [address]- 7875 May, [place] [address] [id number] [place] [address] 10125- 9916 May, Bipolar 1 disorder, depressed, moderate F31.32 ; BMI 40.0- 44.9, adult Z68.41 ; Social anxiety disorder F40.10 ; Long-term use of high- risk medication Z79.899 ; Parkinson disease G20 and Tardive dyskinesia G24.01 [place] [address] [address]- 0533 May, BMI 40.0-44.9, adult Z68.41 ; Bipolar 1 disorder, depressed , moderate F31.32 ; Social anxiety disorder F40.10 ; Long-term use of high-risk medication Z79.899 and Tardive dyskinesia G24.01 [facility] [address] [place] [address] 92773- 1228 Apr, [facility] [address] [id number] [place] [address] 38250- 1342 Mar, Bipolar 1 disorder, depressed, moderate F31.32 ; Social anxiety disorder F40.10 ; Long-term use of high-risk medication Z79.899 ; Tardive dyskinesia G24.01 and Parkinson disease G20 [place] [address] [id number] [place] [address] 91319- 4749 Mar, [place] [address] [id number] [place] [address] 30585- 8778 Dec, Bipolar 1 disorder, depressed, moderate F31.32 ; Social anxiety disorder F40.10 ; Tardive dyskinesia G24.01 ; Parkinson disease G20 and Long-term use of high-risk medication Z79.899 [place] [address] [id number] [place] [address] 70488- 4889 Nov, [place] [address] [id number] [place] [address] 68615- 4651 Oct, [place] [address] [id number] [place] [address] 14830- 6309 Sep, Bipolar 1 disorder, depressed, moderate F31.32 ; Social anxiety disorder F40.10 ; Tardive dyskinesia G24.01 and Long-term use of high- risk medication Z79.899 [place] [address] [id number] [place] [address] 48408- 4298 July, Bipolar 1 disorder, depressed, moderate F31.32 ; Social anxiety disorder F40.10 and Long-term use of high-risk medication Z79.899 [place] [address] [id number] [address]- 0447 July, [facility] [address] [id number] [place] [address] 81644- 3543 Jun, [facility] [id number] [place] [address] 63086- 2340 Jun, [place] [address] [id number] [place] [address] 11217- 3012 Jun, [place] [address] [id number] [place] [address] 81936- 3880 Jun, Bipolar 1 disorder, depressed, moderate F31.32 ; Social anxiety disorder F40.10 and Long-term use of high-risk medication Z79.899 [place] [address] [id number] [place] [address] 49119- 6485 Jun, [place] [address] [id number] [place] [address] 88830- 9012 Jun, [place] [address] [id number] [place] [address] 09100- 3555 May, [place] [address] [id number] [place] [address] 93557- 8830 May, Bipolar 1 disorder, depressed, moderate F31.32 ; Social anxiety disorder F40.10 and Long-term use of high-risk medication Z79.899 IMMUNIZATIONS No Known Immunizations SOCIAL HISTORY Never Assessed REASON FOR VISIT f/u LORNA-CALE PLAN OF CARE Activity Details Follow Up 2 Months Reason: VITAL SIGNS Height 64.0 in 2017-09-12 Weight 231 lbs 2017-09-12 Heart Rate 74 bpm 2017-09-12 Respiratory Rate 20 2017-09-12 BMI 39.65 kg/m2 2017-09-12 Blood pressure systolic 116 mmHg 2017-09-12 Blood pressure diastolic 74 mmHg 2017-09-12 MEDICATIONS Medication Instructions Dosage Frequency Start Date End Date Duration Status Potassium Chloride 10 MEQ Orally Twice a day 1 capsule with food 12h Active Klonopin 0.5 MG Orally 1-2 times per day as needed for anxiety and movement disorder 1 tablet Active Botox 100 UNIT Active Xarelto 20 MG Orally Once a day 1 tablet with food 24h Active Furosemide 40 MG Orally Once a day 1 tablet 24h Active Ingrezza 40 MG Orally Once a day in the PM 2 capsules Active Depakote ER 500 mg Orally Once a day. 2 tablets Active Primidone 50 MG Orally Three times a day 1 tablet 8h Active Propranolol HCl 20 MG Orally Twice a day extended release 1 tablet 12h Not-Taking Wellbutrin SR 200 MG Orally Twice a day 1 tablet 12h July, Active Maxalt Active Levothyroxine Sodium 50 MCG Orally Once a day 1 tablet on an empty stomach in the morning 24h Active Crestor 5 MG Orally Once a day 1 tablet 24h Active [place] Carbonate 300 Orally Once a day 1 capsule at bedtime 24h 30 Not-Taking Tizanidine HCl 2 MG Orally Three times a day 1 tablet as needed 8h Active [place] Carbonate 300 MG Orally Once a day 1 capsule at bedtime 24h May Active Passion Flower-Valerian 360mg Orally 2 times a day 1 capsule 12h Active Fioricet/Codeine 87-097-18-30 MG Orally every 4 hrs 1 capsule as needed 4h Active Propranolol HCl ER 80 MG Orally Once a day 1 capsule 24h Not- Taking RESULTS No Results PROCEDURES No Known procedures [...]
--- OUTSIDE RECORDS SUMMARY | 2018-01-09 14:04 | XMS REPORT ---
Author Author JOSH CHOI [facility] Address [address] [place] [address] Care Team Providers Care Cane Flume Chute Operator Name Role Phone JIMBO JOSH Unavailable PROBLEMS Type Condition ICD9-CM Code [id number] Code Onset Dates Condition Status SNOMED Code Problem Social anxiety disorder F40.10 Active 56494687 Problem Bipolar disorder, current episode depressed, severe, without psychotic features F31.4 Active 075641842 Problem Bipolar disorder, in partial remission, most recent episode depressed F31.75 Active 33729819 Problem Bipolar 1 disorder, depressed, moderate F31.32 Active 34244215 Problem Long-term use of high-risk medication Z79.899 Active 550907151 Problem BMI 40.0-44.9, adult Z68.41 Active 318677966 Problem Tardive dyskinesia G24.01 Active 307792036 ALLERGIES No Information ENCOUNTERS Encounter Location Date Diagnosis [place] [address] [place] [address] 67498- 7945 Nov, [place] [address] [place] [address] 30377- 1529 Oct, Bipolar 1 disorder, depressed, moderate F31.32 ; Social anxiety disorder F40.10 ; Tardive dyskinesia G24.01 and Long-term use of high- risk medication Z79.899 [place] [address] [place] [address] 30633- 8153 Sep, [place] [id number] [place] [address] 55120- 9957 14 Aug, 2017 Bipolar disorder, in partial remission, most recent episode depressed F31.75 ; Social anxiety disorder F40.10 ; Long-term use of high-risk medication Z79.899 and Tardive dyskinesia G24.01 [place] [address], [place] [address]- 1092 July, [place] [address] [id number] [place] [address] 23160- 2777 July, BMI 40.0-44.9, adult Z68.41 ; Social anxiety disorder F40.10 ; Bipolar disorder, in partial remission, most recent episode depressed F31.75 ; Parkinson disease G20 ; Tardive dyskinesia G24.01 and Long-term use of high-risk medication Z79.899 [place] [address] [id number] [place] [address] 88448- 7074 May, [place] [address] [id number] [place] [address] 03931- 6519 May, [place] [address] [id number] [place] [address] 06761- 9332 May, [place] [address] [id number] [place] [address] 27126- 9518 May, Bipolar disorder, current episode depressed, severe, without psychotic features F31.4 ; Social anxiety disorder F40.10 ; Long-term use of high-risk medication Z79.899 ; Tardive dyskinesia G24.01 and Parkinson disease G20 [place] [address], [place] [address]- 5207 May, [place] [address] [place] [address] 43557- 1745 May, Bipolar 1 disorder, depressed, moderate F31.32 ; BMI 40.0- 44.9, adult Z68.41 ; Social anxiety disorder F40.10 ; Long-term use of high- risk medication Z79.899 ; Parkinson disease G20 and Tardive dyskinesia G24.01 [place] [address], [place] [address]- 7846 May, BMI 40.0-44.9, adult Z68.41 ; Bipolar 1 disorder, depressed , moderate F31.32 ; Social anxiety disorder F40.10 ; Long-term use of high-risk medication Z79.899 and Tardive dyskinesia G24.01 [facility] [id number] [place] [address] 17852- 3823 Apr, [facility] [id number] [place] [address] 85073- 0847 Mar, Bipolar 1 disorder, depressed, moderate F31.32 ; Social anxiety disorder F40.10 ; Long-term use of high-risk medication Z79.899 ; Tardive dyskinesia G24.01 and Parkinson disease G20 [facility] [id number] [place] [address] 92073- 6761 Mar, [place] [address] [id number] [place] [address] 99172- 7291 Dec, Bipolar 1 disorder, depressed, moderate F31.32 ; Social anxiety disorder F40.10 ; Tardive dyskinesia G24.01 ; Parkinson disease G20 and Long-term use of high-risk medication Z79.899 [place] [address] [place] [id number] [place] [address] 59552- 4757 Nov, [place] [address] [place] [id number] [place] [address] 68195- 7630 Oct, [place] [address] [id number] [place] [address] 91182- 5396 Sep, Bipolar 1 disorder, depressed, moderate F31.32 ; Social anxiety disorder F40.10 ; Tardive dyskinesia G24.01 and Long-term use of high- risk medication Z79.899 [facility] [address] [place] [address] 75093- 9516 July, Bipolar 1 disorder, depressed, moderate F31.32 ; Social anxiety disorder F40.10 and Long-term use of high-risk medication Z79.899 [facility] [address], [place] [address]- 9861 July, [place] [address], [place] [address]- 8702 Jun, [facility] [address], [place] [address]- 4936 Jun, [facility] [address], [place] [address]- 5604 Jun, [facility] [address], [place] [address]- 6133 Jun, Bipolar 1 disorder, depressed, moderate F31.32 ; Social anxiety disorder F40.10 and Long-term use of high-risk medication Z79.899 [place] [address] [place] [address] 44790- 5508 Jun, [facility] [address], [place] [address]- 5667 Jun, [facility] [address] [address]- 4850 May, [facility] [address], [place] [address]- 3250 May, Bipolar 1 disorder, depressed, moderate F31.32 ; Social anxiety disorder F40.10 and Long-term use of high-risk medication Z79.899 IMMUNIZATIONS No Known Immunizations SOCIAL HISTORY Never Assessed REASON FOR VISIT klonopin refill PLAN OF CARE VITAL SIGNS MEDICATIONS Medication Instructions Dosage Frequency Start Date End Date Duration Status Klonopin 0.5 MG Orally 1-2 times per day as needed for anxiety and movement disorder 1 tablet 30 days Active RESULTS No Results PROCEDURES [...]
--- OUTSIDE RECORDS SUMMARY | 2018-01-09 14:04 | XMS REPORT ---
Author Author JOSH CHOI [facility] Address [address] [place] [address] Care Team Providers Care Granite Polisher Name Role Phone JOSH CHOI Unavailable PROBLEMS Type Condition ICD9-CM Code [id number] Code Onset Dates Condition Status SNOMED Code Problem Long-term use of high-risk medication Z79.899 Active 300075146 Problem Social anxiety disorder F40.10 Active 04201501 Problem Bipolar affective disorder, current episode hypomanic F31.0 Active 44186115 Problem Bipolar disorder, current episode depressed, severe, without psychotic features F31.4 Active 477398616 Problem Tardive dyskinesia G24.01 Active 628793627 Problem Bipolar 1 disorder, depressed, moderate F31.32 Active 73471321 Problem Bipolar disorder, in partial remission, most recent episode depressed F31.75 Active 64435403 Problem BMI 40.0-44.9, adult Z68.41 Active 603638133 ALLERGIES Substance Reaction Event Type Date Status Latuda TD Drug Allergy Nov, Active Tramadol HCl Unknown Drug Allergy Nov, Active ENCOUNTERS Encounter Location Date Diagnosis [place] [address] [place] [id number] [address]- 4112 Dec, [facility] [address], [place] [address]- 7685 Nov, [facility] [address] [address]- 0680 Nov, Bipolar affective disorder, current episode hypomanic F31.0 ; Social anxiety disorder F40.10 ; Tardive dyskinesia G24.01 and Long-term use of high-risk medication Z79.899 [facility] [address] [address]- 3492 Nov, [facility] [address] [address]- 2500 Oct, Bipolar 1 disorder, depressed, moderate F31.32 ; Social anxiety disorder F40.10 ; Tardive dyskinesia G24.01 and Long-term use of high- risk medication Z79.899 [place] [address] [address]- 2883 Sep, [place] [address] [id number] [place] [address] 95371- 5787 Aug, Bipolar disorder, in partial remission, most recent episode depressed F31.75 ; Social anxiety disorder F40.10 ; Long-term use of high-risk medication Z79.899 and Tardive dyskinesia G24.01 [place] [address] [place] [address] 50590- 3929 July, [place] [address] [id number] [place] [address] 53553- 8174 July, BMI 40.0-44.9, adult Z68.41 ; Social anxiety disorder F40.10 ; Bipolar disorder, in partial remission, most recent episode depressed F31.75 ; Parkinson disease G20 ; Tardive dyskinesia G24.01 and Long-term use of high-risk medication Z79.899 [place] [address] [place] [address] 95766- 7972 May, [place] [address] [place] [address] 91492- 5287 May, [place] [address] [place] [address] 03256- 9667 May, [place] [address] [id number] [place] [address] 79846- 5264 13 May, 2017 Bipolar disorder, current episode depressed, severe, without psychotic features F31.4 ; Social anxiety disorder F40.10 ; Long-term use of high-risk medication Z79.899 ; Tardive dyskinesia G24.01 and Parkinson disease G20 [place] [id number] [place] [address] 67740- 5506 May, [place] [address] [id number] [place] [address] 36050- 9582 May, Bipolar 1 disorder, depressed, moderate F31.32 ; BMI 40.0- 44.9, adult Z68.41 ; Social anxiety disorder F40.10 ; Long-term use of high- risk medication Z79.899 ; Parkinson disease G20 and Tardive dyskinesia G24.01 [place] [id number] [place] [address] 88460- 5209 May, BMI 40.0-44.9, adult Z68.41 ; Bipolar 1 disorder, depressed , moderate F31.32 ; Social anxiety disorder F40.10 ; Long-term use of high-risk medication Z79.899 and Tardive dyskinesia G24.01 [place] [id number] [place] [address] 52906- 9173 Apr, [place] [address] [id number] [place] [address] 77821- 9345 Mar, Bipolar 1 disorder, depressed, moderate F31.32 ; Social anxiety disorder F40.10 ; Long-term use of high-risk medication Z79.899 ; Tardive dyskinesia G24.01 and Parkinson disease G20 [place] [address] [address]- 4212 Mar, [place] [address] [id number] [place] [address] 57939- 7054 Dec, Bipolar 1 disorder, depressed, moderate F31.32 ; Social anxiety disorder F40.10 ; Tardive dyskinesia G24.01 ; Parkinson disease G20 and Long-term use of high-risk medication Z79.899 [place] [address] [place] [address] 48644- 7131 Nov, [place] [address] [id number] [place] [address] 82134- 8699 Oct, [facility] [address] [address]- 6053 Sep, Bipolar 1 disorder, depressed, moderate F31.32 ; Social anxiety disorder F40.10 ; Tardive dyskinesia G24.01 and Long-term use of high- risk medication Z79.899 [facility] [address] [address]- 3296 July, Bipolar 1 disorder, depressed, moderate F31.32 ; Social anxiety disorder F40.10 and Long-term use of high-risk medication Z79.899 [facility] [address], [place] [address]- 2926 July, [facility] [id number] [address]- 5216 Jun, [facility] [id number] [place] [address] 84711- 3816 Jun, [facility] [address] [address]- 2759 Jun, [facility] [id number] [address]- 8631 Jun, Bipolar 1 disorder, depressed, moderate F31.32 ; Social anxiety disorder F40.10 and Long-term use of high-risk medication Z79.899 [facility] [address], [place] [address]- 7336 Jun, [facility] [address] [address]- 2546 Jun, [facility] [address] [address]- 8669 May, [facility] [address] [address]- 7754 May, Bipolar 1 disorder, depressed, moderate F31.32 ; Social anxiety disorder F40.10 and Long-term use of high-risk medication Z79.899 IMMUNIZATIONS No Known Immunizations SOCIAL HISTORY Never Assessed REASON FOR VISIT f/u genoveva Robbins PLAN OF CARE Activity Details Follow Up 4 Weeks Reason: VITAL SIGNS Height 64.0 in 2017-12-17 Weight 230.5 lbs 2017-12-17 Heart Rate 76 bpm 2017-12-17 Respiratory Rate 20 2017-12-17 BMI 39.56 kg/m2 2017-12-17 Blood pressure systolic 124 mmHg 2017-12-17 Blood pressure diastolic 72 mmHg 2017-12-17 MEDICATIONS Medication Instructions Dosage Frequency Start Date End Date Duration Status [place] Carbonate 300 MG Orally Once a day 1 capsule at bedtime 24h May Active Potassium Chloride 10 MEQ Orally Twice a day 1 capsule with food 12h Active Crestor 5 MG Orally Once a day 1 tablet 24h Active Fioricet/Codeine 80-541-32-30 MG Orally every 4 hrs 1 capsule as needed 4h Active Tizanidine HCl 2 MG Orally Three times a day 1 tablet as needed 8h Active Wellbutrin SR 200 MG Orally Twice a day 1 tablet 12h Active Primidone 50 mg Orally once a day 3 tablet 24h Active Levothyroxine Sodium 50 MCG Orally Once a day 1 tablet on an empty stomach in the morning 24h Active Xarelto 20 MG Orally Once a day 1 tablet with food 24h Active Furosemide 40 MG Orally Once a day 1 tablet 24h Active Ingrezza 80 MG Orally Once a day in the PM 1 capsules Active Klonopin 0.5 MG Orally 1-2 times per day as needed for anxiety and movement disorder 1 tablet Active Botox 100 UNIT Active Ramelteon 8 MG Orally Once a day for sleep 1 tablet at bedtime as needed Nov, Active Depakote ER 500 TAKE TWO TABLETS BY MOUTH DAILY Active Passion Flower-Valerian 360mg Orally 2 times a day 1 capsule 12h Active Depakote ER 500 mg Orally Once a day. 2 tablets Active Maxalt 5 MG Orally for migraine [...]
--- OUTSIDE RECORDS SUMMARY | 2018-01-09 14:05 | XMS REPORT ---
Author Author JOSH CHOI Organization [facility] Address [address] [place] [address] Care Team Providers Care Placement Director Name Role Phone JOSH CHOI Unavailable PROBLEMS Type Condition ICD9-CM Code [id number] Code Onset Dates Condition Status SNOMED Code Problem Long-term use of high-risk medication Z79.899 Active 366648538 Problem Social anxiety disorder F40.10 Active 68227517 Problem Bipolar disorder, current episode depressed, severe, without psychotic features F31.4 Active 101532304 Problem Bipolar disorder, in partial remission, most recent episode depressed F31.75 Active 44480570 Problem Tardive dyskinesia G24.01 Active 290882636 Problem Bipolar 1 disorder, depressed, moderate F31.32 Active 69920645 Problem BMI 40.0-44.9, adult Z68.41 Active 175462130 Problem Parkinson disease G20 Active 78498089 ALLERGIES No Information ENCOUNTERS Encounter Location Date Diagnosis [facility] [id number] [place] [address] 95774- 5107 Oct, [facility] [address], [place] [address] Sep, [facility] [id number] [place] [address] 05424- 5949 Aug, Bipolar disorder, in partial remission, most recent episode depressed F31.75 ; Social anxiety disorder F40.10 ; Long-term use of high-risk medication Z79.899 and Tardive dyskinesia G24.01 [facility] [id number] [place] [address] 94479- 6605 July, [facility] [id number] [place] [address] 14455- 1950 July, BMI 40.0-44.9, adult Z68.41 ; Social anxiety disorder F40.10 ; Bipolar disorder, in partial remission, most recent episode depressed F31.75 ; Parkinson disease G20 ; Tardive dyskinesia G24.01 and Long-term use of high-risk medication Z79.899 [place] [address] [address] May, [place] [id number] [place] [address] 43557- 2193 May, [place] [id number] [place] [address] 25009- 1976 May, [place] [id number] [place] [address] 57140- 6477 May, Bipolar disorder, current episode depressed, severe, without psychotic features F31.4 ; Social anxiety disorder F40.10 ; Long-term use of high-risk medication Z79.899 ; Tardive dyskinesia G24.01 and Parkinson disease G20 [place] [id number] [place] [address] 23396- 0684 May, [place] [id number] [place] [address] 52794- 7743 May, Bipolar 1 disorder, depressed, moderate F31.32 ; BMI 40.0- 44.9, adult Z68.41 ; Social anxiety disorder F40.10 ; Long-term use of high- risk medication Z79.899 ; Parkinson disease G20 and Tardive dyskinesia G24.01 [place] [id number] [place] [address] 97036- 6039 May, BMI 40.0-44.9, adult Z68.41 ; Bipolar 1 disorder, depressed , moderate F31.32 ; Social anxiety disorder F40.10 ; Long-term use of high-risk medication Z79.899 and Tardive dyskinesia G24.01 [place] [id number] [place] [address] 60626- 2264 Apr, [place] [address], [place] [address] 2[address] Mar, Bipolar 1 disorder, depressed, moderate F31.32 ; Social anxiety disorder F40.10 ; Long-term use of high-risk medication Z79.899 ; Tardive dyskinesia G24.01 and Parkinson disease G20 [facility] [address], [place] [address] 17[address] Mar, [facility] [id number] [place] [address] 78334- 8388 Dec, Bipolar 1 disorder, depressed, moderate F31.32 ; Social anxiety disorder F40.10 ; Tardive dyskinesia G24.01 ; Parkinson disease G20 and Long-term use of high-risk medication Z79.899 [place] [address] [address] 54[address] Nov, [place] [id number] [place] [address] 88833- 1690 Oct, [place] [id number] [place] [address] 89219- 5197 Sep, Bipolar 1 disorder, depressed, moderate F31.32 ; Social anxiety disorder F40.10 ; Tardive dyskinesia G24.01 and Long-term use of high- risk medication Z79.899 [place] [address] [address] 0365 July, Bipolar 1 disorder, depressed, moderate F31.32 ; Social anxiety disorder F40.10 and Long-term use of high-risk medication Z79.899 [place] [address], [place] [address] 5499 July, [place] [id number] [place] [address] 36992- 4382 Jun, [facility] [address], [place] [address]- 4[address] Jun, [place] [id number] [address] 4964 Jun, [facility] [address], [place] [address] 0[address] Jun, Bipolar 1 disorder, depressed, moderate F31.32 ; Social anxiety disorder F40.10 and Long-term use of high-risk medication Z79.899 [facility] [address], [place] [address] 2[address] Jun, [facility] [address], [place] [address]- 6275 Jun, [place] [id number] [place] [address] 08609- 6155 May, [facility] [address], [place] [address]- 9[address] May, Bipolar 1 disorder, depressed, moderate F31.32 ; Social anxiety disorder F40.10 and Long-term use of high-risk medication Z79.899 IMMUNIZATIONS No Known Immunizations SOCIAL HISTORY Never Assessed REASON FOR VISIT Follow up to Saturday PLAN OF CARE VITAL SIGNS MEDICATIONS Medication Instructions Dosage Frequency Start Date End Date Duration Status BuPROPion HCl 75 MG Orally 2 times a day 1 tablet 12h 06 May, 2017 Active Red Corral Carbonate 300 MG Orally Once a day 1 capsule at bedtime 24h May 30 day(s) Active RESULTS No Results PROCEDURES No Known procedures INSTRUCTIONS MEDICATIONS ADMINISTERED No Known Medications MEDICAL (GENERAL) HISTORY Type Description Date Medical History Bipolar I Disorder depressed moderate Medical History Obesity Medical History 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
--- OUTSIDE RECORDS SUMMARY | 2018-01-09 14:05 | XMS REPORT ---
Author Author JOSH CHOI Organization [facility] Address [address] [place] [address] Care Team Providers Care Ladies Underwear Operator Name Role Phone JOSH CHOI Unavailable PROBLEMS Type Condition ICD9-CM Code PFM07-GU Code Onset Dates Condition Status SNOMED Code Problem Long-term use of high-risk medication Z79.899 Active 875650493 Problem Social anxiety disorder F40.10 Active 67890635 Problem Bipolar disorder, current episode depressed, severe, without psychotic features F31.4 Active 681750812 Problem Bipolar disorder, in partial remission, most recent episode depressed F31.75 Active 72404504 Problem Tardive dyskinesia G24.01 Active 362759316 Problem Bipolar 1 disorder, depressed, moderate F31.32 Active 56434982 Problem BMI 40.0-44.9, adult Z68.41 Active 294774519 Problem Parkinson disease G20 Active 77115242 ALLERGIES No Information ENCOUNTERS Encounter Location Date Diagnosis [facility] [address] [place] [address] 16563- 7799 Oct, [facility] [address], [place] [address] 1812 Sep, [facility] [id number] [place] [address] 04529- 0124 Aug, Bipolar disorder, in partial remission, most recent episode depressed F31.75 ; Social anxiety disorder F40.10 ; Long-term use of high-risk medication Z79.899 and Tardive dyskinesia G24.01 [facility] [address] [place] [address] 07153- 1722 July, [facility] [address] [place] [address] 06370- 1668 July, BMI 40.0-44.9, adult Z68.41 ; Social anxiety disorder F40.10 ; Bipolar disorder, in partial remission, most recent episode depressed F31.75 ; Parkinson disease G20 ; Tardive dyskinesia G24.01 and Long-term use of high-risk medication Z79.899 [place] [address], [place] [address]- 4728 May, [place] [id number] [place] [address] 96003- 4951 May, [place] [address] [place] [address] 34492- 1376 May, [place] [id number] [place] [address] 93640- 9463 May, Bipolar disorder, current episode depressed, severe, without psychotic features F31.4 ; Social anxiety disorder F40.10 ; Long-term use of high-risk medication Z79.899 ; Tardive dyskinesia G24.01 and Parkinson disease G20 [place] [address] [place] [address] 42735- 0434 May, [place] [id number] [place] [address] 50510- 8195 May, Bipolar 1 disorder, depressed, moderate F31.32 ; BMI 40.0- 44.9, adult Z68.41 ; Social anxiety disorder F40.10 ; Long-term use of high- risk medication Z79.899 ; Parkinson disease G20 and Tardive dyskinesia G24.01 [place] [address] [place] [address] 69172- 1659 May, BMI 40.0-44.9, adult Z68.41 ; Bipolar 1 disorder, depressed , moderate F31.32 ; Social anxiety disorder F40.10 ; Long-term use of high-risk medication Z79.899 and Tardive dyskinesia G24.01 [place] [address] [place] [address] 33349- 7672 Apr, [place] [address], [place] [address]- 8273 Mar, Bipolar 1 disorder, depressed, moderate F31.32 ; Social anxiety disorder F40.10 ; Long-term use of high-risk medication Z79.899 ; Tardive dyskinesia G24.01 and Parkinson disease G20 [facility] [address], [place] [address]- 6913 Mar, [facility] [id number] [place] [address] 06359- 1506 Dec, Bipolar 1 disorder, depressed, moderate F31.32 ; Social anxiety disorder F40.10 ; Tardive dyskinesia G24.01 ; Parkinson disease G20 and Long-term use of high-risk medication Z79.899 [place] [address], [place] [address]- 8301 Nov, [place] [id number] [place] [address] 09031- 5361 Oct, [place] [id number] [place] [address] 52557- 0486 Sep, Bipolar 1 disorder, depressed, moderate F31.32 ; Social anxiety disorder F40.10 ; Tardive dyskinesia G24.01 and Long-term use of high- risk medication Z79.899 [place] [address], [place] [address]- 0487 July, Bipolar 1 disorder, depressed, moderate F31.32 ; Social anxiety disorder F40.10 and Long-term use of high-risk medication Z79.899 [place] [address], [place] [address]- 5871 July, [place] [address] [place] [address] 07837- 1220 Jun, [facility] [address], [place] [address]- 1201 Jun, [place] [address] [address]- 1321 Jun, [facility] [address], [place] [address]- 7389 Jun, Bipolar 1 disorder, depressed, moderate F31.32 ; Social anxiety disorder F40.10 and Long-term use of high-risk medication Z79.899 [place] [address], [place] [address]- 0325 Jun, [place] [address], [place] [address]- 1337 Jun, [place] [address] [place] [address] 11128- 9344 May, [place] [address], [place] [address]- 4000 May, Bipolar 1 disorder, depressed, moderate F31.32 ; Social anxiety disorder F40.10 and Long-term use of high-risk medication Z79.899 IMMUNIZATIONS No Known Immunizations SOCIAL HISTORY Never Assessed 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 PLAN OF CARE Activity Details Follow Up 6-8w Reason: VITAL SIGNS Height 64.0 in 2017-06-11 Weight 230 lbs 2017-06-11 Heart Rate 70 bpm 2017-06-11 BMI 39.48 kg/m2 2017-06-11 Blood pressure systolic 122 mmHg 2017-06-11 Blood pressure diastolic 74 mmHg 2017-06-11 MEDICATIONS Medication Instructions Dosage Frequency Start Date End Date Duration Status Ingrezza 40 MG Orally Once a day in the PM 2 capsules Active Levothyroxine Sodium 50 MCG Orally Once a day 1 tablet on an empty stomach in the morning 24h Active Tizanidine HCl 2 MG Orally Three times a day 1 tablet as needed 8h Active Botox 100 UNIT Active BuPROPion HCl 75 MG Orally 1 times a day 1 tablet May, Active Methylphenidate HCl 10 mg Orally Once a day for treatment resistive depression 1 tablet May, Active Maxalt Active Xarelto 20 MG Orally Once a day 1 tablet with food 24h Active Propranolol HCl 20 MG Orally Twice a day extended release 1 tablet 12h Active Citalopram Hydrobromide 40 mg Orally Once a day 1 tablet 24h Active Crestor 5 MG Orally Once a day 1 tablet 24h Active Propranolol HCl ER 80 MG Orally Once a day 1 capsule 24h Active Potassium Chloride 10 MEQ Orally Twice a day 1 capsule with food 12h Active Fioricet/Codeine 33-659-88-30 MG Orally every 4 hrs 1 capsule as needed 4h Active Depakote ER 500 mg Orally Once a day. 2 tablets Active Furosemide 40 MG Orally Once a day 1 tablet 24h Active Klonopin 0.5 MG Orally 1-2 times per day as needed for movement disorder 1 tablet Active RESULTS No Results PROCEDURES No Known [...]
--- OUTSIDE RECORDS SUMMARY | 2018-01-09 14:05 | XMS REPORT ---
Author Author JOSH CHOI [facility] Address [address] [place] [address] Care Team Providers Care Medical Grade Shoemaker Name Role Phone JOSH CHOI Unavailable PROBLEMS Type Condition ICD9-CM Code QPR47-VR Code Onset Dates Condition Status SNOMED Code Problem Long-term use of high-risk medication Z79.899 Active 536436004 Problem Social anxiety disorder F40.10 Active 30366010 Problem Bipolar disorder, current episode depressed, severe, without psychotic features F31.4 Active 400969854 Problem Bipolar disorder, in partial remission, most recent episode depressed F31.75 Active 57275837 Problem Tardive dyskinesia G24.01 Active 848251770 Problem Bipolar 1 disorder, depressed, moderate F31.32 Active 97740651 Problem BMI 40.0-44.9, adult Z68.41 Active 288634109 Problem Parkinson disease G20 Active 24440026 ALLERGIES Substance Reaction Event Type Date Status Tramadol HCl Unknown Drug Allergy July, Active ENCOUNTERS Encounter Location Date Diagnosis [facility] [address], [place] [address]- 0299 Oct, [facility] [address], [place] [address]- 2355 Sep, [facility] [id number] [place] [address] 83216- 8413 Aug, Bipolar disorder, in partial remission, most recent episode depressed F31.75 ; Social anxiety disorder F40.10 ; Long-term use of high-risk medication Z79.899 and Tardive dyskinesia G24.01 [facility] [address], [place] [address]- 3091 July, [facility] [id number] [place] [address] 18591- 2224 July, BMI 40.0-44.9, adult Z68.41 ; Social anxiety disorder F40.10 ; Bipolar disorder, in partial remission, most recent episode depressed F31.75 ; Parkinson disease G20 ; Tardive dyskinesia G24.01 and Long-term use of high-risk medication Z79.899 [facility] [address], [place] [address]- 4594 May, [facility] [id number] [place] [address] 09702- 4279 May, [facility] [address] [place] [address] 32787- 8698 May, [place] [id number] [place] [address] 67457- 3145 May, Bipolar disorder, current episode depressed, severe, without psychotic features F31.4 ; Social anxiety disorder F40.10 ; Long-term use of high-risk medication Z79.899 ; Tardive dyskinesia G24.01 and Parkinson disease G20 [place] [address], [place] [address]- 3439 May, [place] [address] [id number] [place] [address] 20228- 9755 May, Bipolar 1 disorder, depressed, moderate F31.32 ; BMI 40.0- 44.9, adult Z68.41 ; Social anxiety disorder F40.10 ; Long-term use of high- risk medication Z79.899 ; Parkinson disease G20 and Tardive dyskinesia G24.01 [facility] [address], [place] [address]- 1771 May, BMI 40.0-44.9, adult Z68.41 ; Bipolar 1 disorder, depressed , moderate F31.32 ; Social anxiety disorder F40.10 ; Long-term use of high-risk medication Z79.899 and Tardive dyskinesia G24.01 [facility] [address] [place] [address] 37768- 5662 Apr, [facility] [address], [place] [address]- 3341 Mar, Bipolar 1 disorder, depressed, moderate F31.32 ; Social anxiety disorder F40.10 ; Long-term use of high-risk medication Z79.899 ; Tardive dyskinesia G24.01 and Parkinson disease G20 [facility] [id number] [place] [address] 43066- 5729 Mar, [place] [address] [id number] [place] [address] 68752- 4198 Dec, Bipolar 1 disorder, depressed, moderate F31.32 ; Social anxiety disorder F40.10 ; Tardive dyskinesia G24.01 ; Parkinson disease G20 and Long-term use of high-risk medication Z79.899 [place] [id number] [place] [address] 47214- 8707 Nov, [place] [address] [id number] [place] [address] 25789- 8973 Oct, [place] [id number] [place] [address] 75380- 4388 Sep, Bipolar 1 disorder, depressed, moderate F31.32 ; Social anxiety disorder F40.10 ; Tardive dyskinesia G24.01 and Long-term use of high- risk medication Z79.899 [place] [address] [place] [address] 01933- 5021 July, Bipolar 1 disorder, depressed, moderate F31.32 ; Social anxiety disorder F40.10 and Long-term use of high-risk medication Z79.899 [place] [id number] [place] [address] 26181- 0855 July, [place] [address] [place] [address] 64044- 8328 Jun, [place] [address] [id number] [place] [address] 24508- 1583 Jun, [place] [address], [place] [address]- 7407 Jun, [facility] [address], [place] [address]- 4766 Jun, Bipolar 1 disorder, depressed, moderate F31.32 ; Social anxiety disorder F40.10 and Long-term use of high-risk medication Z79.899 [place] [address] [place] [address]- 3955 Jun, [place] [address], [place] [address]- 1846 Jun, [place] [address] [place] [address] 27008- 9634 May, [place] [address], [place] [address]- 1744 May, Bipolar 1 disorder, depressed, moderate F31.32 ; Social anxiety disorder F40.10 and Long-term use of high-risk medication Z79.899 IMMUNIZATIONS No Known Immunizations SOCIAL HISTORY Never Assessed REASON FOR VISIT f/u PLAN OF CARE Activity Details Follow Up 4-6w Reason: VITAL SIGNS Height 64.0 in 2017-08-06 Weight 234.6 lbs 2017-08-06 Heart Rate 72 bpm 2017-08-06 Respiratory Rate 20 2017-08-06 BMI 40.26 kg/m2 2017-08-06 Blood pressure systolic 110 mmHg 2017-08-06 Blood pressure diastolic 72 mmHg 2017-08-06 MEDICATIONS Medication Instructions Dosage Frequency Start Date End Date Duration Status Crestor 5 MG Orally Once a day 1 tablet 24h Active Milo Carbonate 300 MG Orally Once a day 1 capsule at bedtime 24h May Active Xarelto 20 MG Orally Once a day 1 tablet with food 24h Active Tizanidine HCl 2 MG Orally Three times a day 1 tablet as needed 8h Active Klonopin 0.5 MG Orally 1-2 times per day as needed for movement disorder 1 tablet Active Potassium Chloride 10 MEQ Orally Twice a day 1 capsule with food 12h Active Passion Flower-Valerian 360mg Orally 2 times a day 1 capsule 12h Active Propranolol HCl ER 80 MG Orally Once a day 1 capsule 24h Not- Taking Ingrezza 40 MG Orally Once a day in the PM 2 capsules Active Levothyroxine Sodium 50 MCG Orally Once a day 1 tablet on an empty stomach in the morning 24h Active Botox 100 UNIT Active Fioricet/Codeine 28-924-75-30 MG Orally every 4 hrs 1 capsule as needed 4h Active Maxalt Active Depakote ER 500 mg Orally Once a day. 2 tablets Active Wellbutrin SR 150 MG Orally Twice a day 1 tablet 12h July, 30 day(s) Active Propranolol HCl 20 MG Orally Twice a day extended release 1 tablet 12h Active Furosemide 40 MG Orally Once a day 1 tablet 24h Active Milo Carbonate 300 Orally Once a day 1 capsule at bedtime 24h 30 Not-Taking RESULTS No Results PROCEDURES No Known procedures [...]
--- OUTSIDE RECORDS SUMMARY | 2018-01-09 14:05 | XMS REPORT ---
Author Author JOSH CHOI Organization [facility] Address [address] [place] [address] Care Team Providers Care It Compliance Manager Name Role Phone JOSH CHOI Unavailable PROBLEMS Type Condition ICD9-CM Code PCQ80-UJ Code Onset Dates Condition Status SNOMED Code Problem Long-term use of high-risk medication Z79.899 Active 094041810 Problem Social anxiety disorder F40.10 Active 40792984 Problem Bipolar disorder, current episode depressed, severe, without psychotic features F31.4 Active 897793848 Problem Bipolar disorder, in partial remission, most recent episode depressed F31.75 Active 47577610 Problem Tardive dyskinesia G24.01 Active 966386125 Problem Bipolar 1 disorder, depressed, moderate F31.32 Active 25420725 Problem BMI 40.0-44.9, adult Z68.41 Active 265071560 Problem Parkinson disease G20 Active 41295532 ALLERGIES No Information ENCOUNTERS Encounter Location Date Diagnosis [facility] [id number] [place] [address] 80244- 5980 Oct, [facility] [address] [address] 6[address] Sep, [facility] [id number] [place] [address] 88769- 6621 Aug, Bipolar disorder, in partial remission, most recent episode depressed F31.75 ; Social anxiety disorder F40.10 ; Long-term use of high-risk medication Z79.899 and Tardive dyskinesia G24.01 [facility] [id number] [place] [address] 74948- 3838 July, [facility] [address] [address] 6[address] July, BMI 40.0-44.9, adult Z68.41 ; Social anxiety disorder F40.10 ; Bipolar disorder, in partial remission, most recent episode depressed F31.75 ; Parkinson disease G20 ; Tardive dyskinesia G24.01 and Long-term use of high-risk medication Z79.899 [place] [address] [address] May, [place] [id number] [place] [address] 99154- 0012 May, [place] [address] [place] [address] 88110- 2623 May, [place] [facility] [id number] [place] [address] 88775- 0826 May, Bipolar disorder, current episode depressed, severe, without psychotic features F31.4 ; Social anxiety disorder F40.10 ; Long-term use of high-risk medication Z79.899 ; Tardive dyskinesia G24.01 and Parkinson disease G20 [place] [address] [place] [address] 89852- 1597 May, [place] [id number] [place] [address] 78188- 5708 May, Bipolar 1 disorder, depressed, moderate F31.32 ; BMI 40.0- 44.9, adult Z68.41 ; Social anxiety disorder F40.10 ; Long-term use of high- risk medication Z79.899 ; Parkinson disease G20 and Tardive dyskinesia G24.01 [place] [address] [place] [address] 62267- 3000 May, BMI 40.0-44.9, adult Z68.41 ; Bipolar 1 disorder, depressed , moderate F31.32 ; Social anxiety disorder F40.10 ; Long-term use of high-risk medication Z79.899 and Tardive dyskinesia G24.01 [place] [address] [place] [address] 75622- 0906 Apr, [place] [address] [address] 4545 Mar, Bipolar 1 disorder, depressed, moderate F31.32 ; Social anxiety disorder F40.10 ; Long-term use of high-risk medication Z79.899 ; Tardive dyskinesia G24.01 and Parkinson disease G20 [facility] [address] [address] 1287 Mar, [facility] [id number] [place] [address] 09986- 1425 Dec, Bipolar 1 disorder, depressed, moderate F31.32 ; Social anxiety disorder F40.10 ; Tardive dyskinesia G24.01 ; Parkinson disease G20 and Long-term use of high-risk medication Z79.899 [place] [address] [address]- 9330 Nov, [place] [id number] [place] [address] 57188- 4507 Oct, [place] [id number] [place] [address] 59871- 9634 Sep, Bipolar 1 disorder, depressed, moderate F31.32 ; Social anxiety disorder F40.10 ; Tardive dyskinesia G24.01 and Long-term use of high- risk medication Z79.899 [place] [address] [address]- 7120 July, Bipolar 1 disorder, depressed, moderate F31.32 ; Social anxiety disorder F40.10 and Long-term use of high-risk medication Z79.899 [place] [address], [place] [address]- 6509 July, [place] [address] [place] [address] 29943- 3551 Jun, [facility] [address] [address]- 4134 Jun, [place] [id number] [address]- 9706 Jun, [facility] [address] [address]- 0850 Jun, Bipolar 1 disorder, depressed, moderate F31.32 ; Social anxiety disorder F40.10 and Long-term use of high-risk medication Z79.899 [facility] [address], [place] [address]- 8807 Jun, [facility] [address] [place] [address] 54835- 6208 Jun, [facility] [address] [place] [address] 35022- 7470 May, [facility] [address], [place] [address]- 0822 May, Bipolar 1 disorder, depressed, moderate F31.32 ; Social anxiety disorder F40.10 and Long-term use of high-risk medication Z79.899 IMMUNIZATIONS No Known Immunizations SOCIAL HISTORY Never Assessed REASON FOR VISIT medication PLAN OF CARE VITAL SIGNS MEDICATIONS Unknown Medications RESULTS No Results PROCEDURES No Known procedures [...]
--- OUTSIDE RECORDS SUMMARY | 2018-01-09 14:05 | XMS REPORT ---
Author Author JOSH CHOI Organization [facility] Address [address] [place] [address] Care Team Providers Care Beach Lifeguard Name Role Phone JOSH CHOI Unavailable PROBLEMS Type Condition ICD9-CM Code HJE88-EX Code Onset Dates Condition Status SNOMED Code Problem Long-term use of high-risk medication Z79.899 Active 238324597 Problem Social anxiety disorder F40.10 Active 63556635 Problem Bipolar disorder, current episode depressed, severe, without psychotic features F31.4 Active 525432829 Problem Bipolar disorder, in partial remission, most recent episode depressed F31.75 Active 84635876 Problem Tardive dyskinesia G24.01 Active 634651631 Problem Bipolar 1 disorder, depressed, moderate F31.32 Active 29609758 Problem BMI 40.0-44.9, adult Z68.41 Active 183146982 Problem Parkinson disease G20 Active 74980172 ALLERGIES No Information ENCOUNTERS Encounter Location Date Diagnosis [facility] [address] [place] [address] 37692- 4330 Oct, [facility] [address], [place] [address]- 3464 Sep, [facility] [id number] [place] [address] 85262- 6233 Aug, Bipolar disorder, in partial remission, most recent episode depressed F31.75 ; Social anxiety disorder F40.10 ; Long-term use of high-risk medication Z79.899 and Tardive dyskinesia G24.01 [facility] [address] [place] [address] 93980- 2539 July, [facility] [address] [place] [address] 55462- 6068 July, BMI 40.0-44.9, adult Z68.41 ; Social anxiety disorder F40.10 ; Bipolar disorder, in partial remission, most recent episode depressed F31.75 ; Parkinson disease G20 ; Tardive dyskinesia G24.01 and Long-term use of high-risk medication Z79.899 [place] [address], [place] [address]- 6914 May, [place] [id number] [place] [address] 08260- 0033 May, [place] [address] [place] [address] 47252- 5483 May, [place] [id number] [place] [address] 10232- 9090 May, Bipolar disorder, current episode depressed, severe, without psychotic features F31.4 ; Social anxiety disorder F40.10 ; Long-term use of high-risk medication Z79.899 ; Tardive dyskinesia G24.01 and Parkinson disease G20 [place] [address] [place] [address] 22012- 6215 May, [place] [id number] [place] [address] 18753- 9666 May, Bipolar 1 disorder, depressed, moderate F31.32 ; BMI 40.0- 44.9, adult Z68.41 ; Social anxiety disorder F40.10 ; Long-term use of high- risk medication Z79.899 ; Parkinson disease G20 and Tardive dyskinesia G24.01 [place] [address] [place] [address] 16246- 2049 May, BMI 40.0-44.9, adult Z68.41 ; Bipolar 1 disorder, depressed , moderate F31.32 ; Social anxiety disorder F40.10 ; Long-term use of high-risk medication Z79.899 and Tardive dyskinesia G24.01 [place] [address] [place] [address] 23373- 7792 Apr, [place] [address], [place] [address]- 7464 Mar, Bipolar 1 disorder, depressed, moderate F31.32 ; Social anxiety disorder F40.10 ; Long-term use of high-risk medication Z79.899 ; Tardive dyskinesia G24.01 and Parkinson disease G20 [facility] [address], [place] [address]- 5689 Mar, [facility] [id number] [place] [address] 20923- 1766 Dec, Bipolar 1 disorder, depressed, moderate F31.32 ; Social anxiety disorder F40.10 ; Tardive dyskinesia G24.01 ; Parkinson disease G20 and Long-term use of high-risk medication Z79.899 [place] [address], [place] [address]- 7463 Nov, [place] [id number] [place] [address] 28446- 9464 Oct, [place] [id number] [place] [address] 17864- 7817 Sep, Bipolar 1 disorder, depressed, moderate F31.32 ; Social anxiety disorder F40.10 ; Tardive dyskinesia G24.01 and Long-term use of high- risk medication Z79.899 [place] [address], [place] [address]- 3043 July, Bipolar 1 disorder, depressed, moderate F31.32 ; Social anxiety disorder F40.10 and Long-term use of high-risk medication Z79.899 [place] [address], [place] [address]- 6190 July, [place] [id number] [place] [address] 69812- 1051 Jun, [facility] [address], [place] [address]- 3503 Jun, [place] [id number] [address]- 3640 Jun, [facility] [address], [place] [address]- 0057 Jun, Bipolar 1 disorder, depressed, moderate F31.32 ; Social anxiety disorder F40.10 and Long-term use of high-risk medication Z79.899 [facility] [address], [place] [address]- 3702 Jun, [facility] [address], [place] [address]- 6377 Jun, [facility] [id number] [place] [address] 48721- 8245 May, [facility] [address], [place] [address]- 9121 May, Bipolar 1 disorder, depressed, moderate F31.32 ; Social anxiety disorder F40.10 and Long-term use of high-risk medication Z79.899 IMMUNIZATIONS No Known Immunizations SOCIAL HISTORY Never Assessed REASON FOR VISIT Requesting providers e-mail PLAN OF CARE VITAL SIGNS MEDICATIONS Unknown [...]
--- OUTSIDE RECORDS SUMMARY | 2018-01-09 14:05 | XMS REPORT ---
Author Author JOSH CHOI Organization [facility] Address [address] [place] [address] Care Team Providers Care Cuff Slitter Name Role Phone JOSH CHOI Unavailable PROBLEMS Type Condition ICD9-CM Code ZZU11-VU Code Onset Dates Condition Status SNOMED Code Problem Long-term use of high-risk medication Z79.899 Active 728558778 Problem Social anxiety disorder F40.10 Active 37041065 Problem Bipolar disorder, current episode depressed, severe, without psychotic features F31.4 Active 363076012 Problem Bipolar disorder, in partial remission, most recent episode depressed F31.75 Active 70060543 Problem Tardive dyskinesia G24.01 Active 991784013 Problem Bipolar 1 disorder, depressed, moderate F31.32 Active 68505252 Problem BMI 40.0-44.9, adult Z68.41 Active 106452306 Problem Parkinson disease G20 Active 88151445 ALLERGIES No Information ENCOUNTERS Encounter Location Date Diagnosis [facility] [address] [place] [address] 33759- 5810 Oct, [facility] [address], [place] [address]- 1129 Sep, [facility] [id number] [place] [address] 13406- 4148 Aug, Bipolar disorder, in partial remission, most recent episode depressed F31.75 ; Social anxiety disorder F40.10 ; Long-term use of high-risk medication Z79.899 and Tardive dyskinesia G24.01 [facility] [address] [place] [address] 77588- 1436 July, [facility] [address] [place] [address] 56862- 7824 July, BMI 40.0-44.9, adult Z68.41 ; Social anxiety disorder F40.10 ; Bipolar disorder, in partial remission, most recent episode depressed F31.75 ; Parkinson disease G20 ; Tardive dyskinesia G24.01 and Long-term use of high-risk medication Z79.899 [place] [address], [place] [address]- 4884 May, [place] [id number] [place] [address] 98565- 5711 May, [place] [address] [place] [address] 02090- 0937 May, [place] [address] [place] [address] [id number] [place] [address] 26759- 7279 May, Bipolar disorder, current episode depressed, severe, without psychotic features F31.4 ; Social anxiety disorder F40.10 ; Long-term use of high-risk medication Z79.899 ; Tardive dyskinesia G24.01 and Parkinson disease G20 [place] [address] [place] [address] 51964- 7923 May, [place] [address] [place] [address] [id number] [place] [address] 22984- 7811 May, Bipolar 1 disorder, depressed, moderate F31.32 ; BMI 40.0- 44.9, adult Z68.41 ; Social anxiety disorder F40.10 ; Long-term use of high- risk medication Z79.899 ; Parkinson disease G20 and Tardive dyskinesia G24.01 [place] [address] [place] [address] 90807- 3414 May, BMI 40.0-44.9, adult Z68.41 ; Bipolar 1 disorder, depressed , moderate F31.32 ; Social anxiety disorder F40.10 ; Long-term use of high-risk medication Z79.899 and Tardive dyskinesia G24.01 [place] [address] [place] [address] 11654- 5814 Apr, [place] [address], [place] [address]- 0546 Mar, Bipolar 1 disorder, depressed, moderate F31.32 ; Social anxiety disorder F40.10 ; Long-term use of high-risk medication Z79.899 ; Tardive dyskinesia G24.01 and Parkinson disease G20 [facility] [address], [place] [address]- 7036 Mar, [facility] [id number] [place] [address] 32152- 9564 Dec, Bipolar 1 disorder, depressed, moderate F31.32 ; Social anxiety disorder F40.10 ; Tardive dyskinesia G24.01 ; Parkinson disease G20 and Long-term use of high-risk medication Z79.899 [place] [address], [place] [address]- 6441 Nov, [place] [address] [id number] [place] [address] 15873- 1037 Oct, [place] [address] [id number] [place] [address] 45151- 6089 Sep, Bipolar 1 disorder, depressed, moderate F31.32 ; Social anxiety disorder F40.10 ; Tardive dyskinesia G24.01 and Long-term use of high- risk medication Z79.899 [place] [address], [place] [address]- 0519 July, Bipolar 1 disorder, depressed, moderate F31.32 ; Social anxiety disorder F40.10 and Long-term use of high-risk medication Z79.899 [place] [address], [place] [address]- 1605 July, [place] [address] [place] [address] 78460- 1040 Jun, [facility] [address], [place] [address]- 7815 Jun, [place] [address] [address]- 6093 Jun, [facility] [address], [place] [address]- 2073 Jun, Bipolar 1 disorder, depressed, moderate F31.32 ; Social anxiety disorder F40.10 and Long-term use of high-risk medication Z79.899 [facility] [address], [place] [address]- 5031 Jun, [facility] [id number] [place] [address] 53282- 4611 Jun, [facility] [address] [place] [address] 64912- 0484 May, [facility] [address], [place] [address]- 1090 May, Bipolar 1 disorder, depressed, moderate F31.32 ; Social anxiety disorder F40.10 and Long-term use of high-risk medication Z79.899 IMMUNIZATIONS No Known Immunizations SOCIAL HISTORY Never Assessed REASON FOR VISIT Depression PLAN OF CARE VITAL SIGNS MEDICATIONS Unknown [...]
--- OUTSIDE RECORDS SUMMARY | 2018-01-09 14:06 | XMS REPORT ---
Author Author JOSH CHOI [facility] Address [address] [place] [address] Care Team Providers Care Butadiene Converter Utility Operator Name Role Phone JIMBO JOSH Unavailable PROBLEMS Type Condition ICD9-CM Code NAZ84-NX Code Onset Dates Condition Status SNOMED Code Problem Bipolar disorder, current episode depressed, severe, without psychotic features F31.4 Active 752719676 Problem Parkinson disease G20 Active 25344612 Problem Long-term use of high-risk medication Z79.899 Active 882666483 Problem Social anxiety disorder F40.10 Active 22504059 Problem Tardive dyskinesia G24.01 Active 274909962 Problem Bipolar 1 disorder, depressed, moderate F31.32 Active 61998932 ALLERGIES Substance Reaction Event Type Date Status Tramadol HCl Unknown Drug Allergy Sep, Active ENCOUNTERS Encounter Location Date Diagnosis [facility] [id number] [place] [address] 93154- 8737 July, [place] [id number] [place] [address] 56292- 8064 May, [place] [address] [address]- 5002 May, [facility] [id number] [place] [address] 29961- 1306 May, [place] [address] [id number] [place] [address] 84127- 9539 May, Bipolar disorder, current episode depressed, severe, without psychotic features F31.4 ; Social anxiety disorder F40.10 ; Long-term use of high-risk medication Z79.899 ; Tardive dyskinesia G24.01 and Parkinson disease G20 [facility] [id number] [place] [address] 88052- 8941 May, [facility] [address] [place] [address] 15646- 1828 May, Bipolar 1 disorder, depressed, moderate F31.32 ; BMI 40.0- 44.9, adult Z68.41 ; Social anxiety disorder F40.10 ; Long-term use of high- risk medication Z79.899 ; Parkinson disease G20 and Tardive dyskinesia G24.01 [place] [id number] [place] [address] 77102- 9627 May, BMI 40.0-44.9, adult Z68.41 ; Bipolar 1 disorder, depressed , moderate F31.32 ; Social anxiety disorder F40.10 ; Long-term use of high-risk medication Z79.899 and Tardive dyskinesia G24.01 [place] [id number] [place] [address] 76537- 9078 Apr, [place] [id number] [place] [address] 37261- 3206 Mar, Bipolar 1 disorder, depressed, moderate F31.32 ; Social anxiety disorder F40.10 ; Long-term use of high-risk medication Z79.899 ; Tardive dyskinesia G24.01 and Parkinson disease G20 [place] [address] [place] [address] 09284- 8524 Mar, [place] [id number] [place] [address] 22949- 6719 Dec, Bipolar 1 disorder, depressed, moderate F31.32 ; Social anxiety disorder F40.10 ; Tardive dyskinesia G24.01 ; Parkinson disease G20 and Long-term use of high-risk medication Z79.899 [place] [id number] [place] [address] 70516- 3557 Nov, [place] [id number] [place] [address] 91525- 5052 Oct, [place] [id number] [place] [address] 32389- 3055 Sep, Bipolar 1 disorder, depressed, moderate F31.32 ; Social anxiety disorder F40.10 ; Tardive dyskinesia G24.01 and Long-term use of high- risk medication Z79.899 [facility] [address] [address] 2546 July, Bipolar 1 disorder, depressed, moderate F31.32 ; Social anxiety disorder F40.10 and Long-term use of high-risk medication Z79.899 [facility] [address] [address]- 5686 July, [facility] [id number] [place] [address] 92855- 3536 Jun, [facility] [address] [address]- 1506 Jun, [facility] [id number] [address]- 3680 Jun, [facility] [address] [address]- 2809 Jun, Bipolar 1 disorder, depressed, moderate F31.32 ; Social anxiety disorder F40.10 and Long-term use of high-risk medication Z79.899 [facility] [address] [address]- 0206 Jun, [facility] [address] [address]- 6502 Jun, [facility] [address] [address]- 4201 May, [facility] [address] [address]- 9297 May, Bipolar 1 disorder, depressed, moderate F31.32 ; Social anxiety disorder F40.10 and Long-term use of high-risk medication Z79.899 IMMUNIZATIONS No Known Immunizations SOCIAL HISTORY Never Assessed REASON FOR VISIT 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 PLAN OF CARE Activity Details Follow Up 3 Months Reason: VITAL SIGNS Height 64.0 in 2016-10-23 Weight 230.3 lbs 2016-10-23 Heart Rate 80 bpm 2016-10-23 Respiratory Rate 20 2016-10-23 BMI 39.53 kg/m2 2016-10-23 Blood pressure systolic 112 mmHg 2016-10-23 Blood pressure diastolic 76 mmHg 2016-10-23 MEDICATIONS Medication Instructions Dosage Frequency Start Date End Date Duration Status Tizanidine HCl 2 MG Orally Three times a day 1 tablet as needed 8h Active Xarelto 15 mg Orally 2 times a day 1 tablet with food 12h Active Potassium Chloride 10 MEQ Orally Twice a day 1 capsule with food 12h Active Furosemide 40 MG Orally Once a day 1 tablet 24h Active Citalopram Hydrobromide 40 mg Orally Once a day 1 tablet 24h Active Fioricet/Codeine 64-846-99-30 MG Orally every 4 hrs 1 capsule as needed 4h Active Crestor 5 MG Orally Once a day 1 tablet 24h Active Klonopin 0.5 MG Orally 5 times a day for movement disorder 1 tablet Active Depakote ER 500 mg Orally Once a day 3 tablets 24h Active RESULTS No Results PROCEDURES No Known procedures INSTRUCTIONS MEDICATIONS ADMINISTERED No Known Medications MEDICAL (GENERAL) HISTORY Type Description Date Medical History Bipolar I Disorder depressed moderate Medical History Obesity Medical History 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
--- OUTSIDE RECORDS SUMMARY | 2018-01-09 14:06 | XMS REPORT ---
Author Author JOSH CHOI [facility] Address [address] [place] [address] Care Team Providers Care Manual Lathe Machinist Name Role Phone JOSH CHOI Unavailable PROBLEMS Type Condition ICD9-CM Code PIE28-FV Code Onset Dates Condition Status SNOMED Code Problem Long-term use of high-risk medication Z79.899 Active 181839490 Problem Social anxiety disorder F40.10 Active 41206059 Problem Bipolar disorder, current episode depressed, severe, without psychotic features F31.4 Active 426082485 Problem Bipolar disorder, in partial remission, most recent episode depressed F31.75 Active 04940929 Problem Tardive dyskinesia G24.01 Active 157144988 Problem Bipolar 1 disorder, depressed, moderate F31.32 Active 93699016 Problem BMI 40.0-44.9, adult Z68.41 Active 798736521 Problem Parkinson disease G20 Active 56493415 ALLERGIES Substance Reaction Event Type Date Status Tramadol HCl Unknown Drug Allergy Mar, Active ENCOUNTERS Encounter Location Date Diagnosis [place] [address], [place] [address] Aug, [place] [address], [place] [address] July, [place] [address] [place] [id number] [place] [address] July, BMI 40.0-44.9, adult Z68.41 ; Social anxiety disorder F40.10 ; Bipolar disorder, in partial remission, most recent episode depressed F31.75 ; Parkinson disease G20 ; Tardive dyskinesia G24.01 and Long-term use of high-risk medication Z79.899 [place] [address] [place] [id number], [place] [address] May, [place] [address], [place] [address] May, [facility] [address], [place] [address] May, [facility] [address], [place] [address] May, Bipolar disorder, current episode depressed, severe, without psychotic features F31.4 ; Social anxiety disorder F40.10 ; Long-term use of high-risk medication Z79.899 ; Tardive dyskinesia G24.01 and Parkinson disease G20 [place] [address] [place] [address]201- 4159 May, [place] [address] [place] [id number] [place] [address] 20196- 6452 May, Bipolar 1 disorder, depressed, moderate F31.32 ; BMI 40.0- 44.9, adult Z68.41 ; Social anxiety disorder F40.10 ; Long-term use of high- risk medication Z79.899 ; Parkinson disease G20 and Tardive dyskinesia G24.01 [place] [address], [place] [address] May, BMI 40.0-44.9, adult Z68.41 ; Bipolar 1 disorder, depressed , moderate F31.32 ; Social anxiety disorder F40.10 ; Long-term use of high-risk medication Z79.899 and Tardive dyskinesia G24.01 [place] [address], [place] [address] Apr, [place] [address] [place] [address]- 9[address] Mar, Bipolar 1 disorder, depressed, moderate F31.32 ; Social anxiety disorder F40.10 ; Long-term use of high-risk medication Z79.899 ; Tardive dyskinesia G24.01 and Parkinson disease G20 [place] [address] [place] [address] 15[address] Mar, [facility] [address], [place] [address] Dec, Bipolar 1 disorder, depressed, moderate F31.32 ; Social anxiety disorder F40.10 ; Tardive dyskinesia G24.01 ; Parkinson disease G20 and Long-term use of high-risk medication Z79.899 [facility] [address] [place] [address] 673411- 5928 Nov, [facility] [address] [place] [id number] [place] [address] 78506- 1586 Oct, [place] [address] [place] [id number] [place] [address]- 1393 Sep, Bipolar 1 disorder, depressed, moderate F31.32 ; Social anxiety disorder F40.10 ; Tardive dyskinesia G24.01 and Long-term use of high- risk medication Z79.899 [place] [address] [place] [address] 56209- 2857 July, Bipolar 1 disorder, depressed, moderate F31.32 ; Social anxiety disorder F40.10 and Long-term use of high-risk medication Z79.899 [place] [address], [place] [address] July, [place] [address], [place] [address] Jun, [place] [address] [place] [address] 99010- 8134 Jun, [place] [address], [place] [address] Jun, [place] [address] [place] [id number] [place] [address] 29311- 7313 Jun, Bipolar 1 disorder, depressed, moderate F31.32 ; Social anxiety disorder F40.10 and Long-term use of high-risk medication Z79.899 [place] [address] [address] Jun, [facility] [address] [facility] [id number] [address] Jun, [facility] [address] [facility] [id number] [address] May, [place] [address] [facility] [id number] [address] May, Bipolar 1 disorder, depressed, moderate F31.32 ; Social anxiety disorder F40.10 and Long-term use of high-risk medication Z79.899 IMMUNIZATIONS No Known Immunizations SOCIAL HISTORY Never Assessed REASON FOR VISIT BOB cavanaugh/Edward MADSEN PLAN OF CARE Activity Details Follow Up 6-8 Weeks Reason: VITAL SIGNS Height 64.0 in 2017-03-19 Weight 237.6 lbs 2017-03-19 Heart Rate 84 bpm 2017-03-19 Respiratory Rate 18 2017-03-19 BMI 40.78 kg/m2 2017-03-19 Blood pressure systolic 124 mmHg 2017-03-19 Blood pressure diastolic 82 mmHg 2017-03-19 MEDICATIONS Medication Instructions Dosage Frequency Start Date End Date Duration Status Furosemide 40 MG Orally Once a day 1 tablet 24h Active Levothyroxine Sodium 50 MCG Orally Once a day 1 tablet on an empty stomach in the morning 24h Active Trihexyphenidyl HCl 2 MG Orally 2 times a day 1 tablet with meals 12h Active Potassium Chloride 10 MEQ Orally Twice a day 1 capsule with food 12h Active Botox 100 UNIT Active Klonopin 0.5 MG Orally 5 times a day for movement disorder 1 tablet Active Fioricet/Codeine 49-548-83-30 MG Orally every 4 hrs 1 capsule as needed 4h Active Tizanidine HCl 2 MG Orally Three times a day 1 tablet as needed 8h Active Xarelto 15 mg Orally 2 times a day 1 tablet with food 12h Active Ingrezza 40 MG Orally Once a day in the PM 2 capsules Active Crestor 5 MG Orally Once a day 1 tablet 24h Active Citalopram Hydrobromide 40 mg Orally Once a day 1 tablet 24h Active Depakote ER 500 mg Orally Once [...]
--- OUTSIDE RECORDS SUMMARY | 2018-01-09 14:06 | XMS REPORT ---
Author Author JOSH CHOI [facility] Address [address] [place] [address] Care Team Providers Care Agency Sales Development Associate Name Role Phone JOSH CHOI Unavailable PROBLEMS Type Condition ICD9-CM Code [id number] Code Onset Dates Condition Status SNOMED Code Problem Long-term use of high-risk medication Z79.899 Active 319813668 Problem Social anxiety disorder F40.10 Active 18389339 Problem Bipolar disorder, current episode depressed, severe, without psychotic features F31.4 Active 113204232 Problem Bipolar disorder, in partial remission, most recent episode depressed F31.75 Active 62521813 Problem Tardive dyskinesia G24.01 Active 523607030 Problem Bipolar 1 disorder, depressed, moderate F31.32 Active 75779051 Problem BMI 40.0-44.9, adult Z68.41 Active 026289799 Problem Parkinson disease G20 Active 91978150 ALLERGIES No Information ENCOUNTERS Encounter Location Date Diagnosis [place] [address] [place] [id number] [place] [address]31- [address] Aug, [place] [address] [place] [address] 32551- 6449 July, [place] [address] [place] [id number] [place] [address] 88099- 4732 July, BMI 40.0-44.9, adult Z68.41 ; Social anxiety disorder F40.10 ; Bipolar disorder, in partial remission, most recent episode depressed F31.75 ; Parkinson disease G20 ; Tardive dyskinesia G24.01 and Long-term use of high-risk medication Z79.899 [place] [address] [place] [id number] [place] [address] 06877- 6995 May, [place] [address] [place] [id number] [place] [address]26- 1258 May, [facility] [address], [place] [address] May, [place] [address] [place] [address] 89999- 9792 May, Bipolar disorder, current episode depressed, severe, without psychotic features F31.4 ; Social anxiety disorder F40.10 ; Long-term use of high-risk medication Z79.899 ; Tardive dyskinesia G24.01 and Parkinson disease G20 [place] [address], [place] [address]- 6793 May, [place] [address] [place] [address] 46420- 3235 May, Bipolar 1 disorder, depressed, moderate F31.32 ; BMI 40.0- 44.9, adult Z68.41 ; Social anxiety disorder F40.10 ; Long-term use of high- risk medication Z79.899 ; Parkinson disease G20 and Tardive dyskinesia G24.01 [place] [address], [place] [address]- [address] May, BMI 40.0-44.9, adult Z68.41 ; Bipolar 1 disorder, depressed , moderate F31.32 ; Social anxiety disorder F40.10 ; Long-term use of high-risk medication Z79.899 and Tardive dyskinesia G24.01 [place] [address], [place] [address]- [address] Apr, [place] [address] [place] [id number] [address] Mar, Bipolar 1 disorder, depressed, moderate F31.32 ; Social anxiety disorder F40.10 ; Long-term use of high-risk medication Z79.899 ; Tardive dyskinesia G24.01 and Parkinson disease G20 [place] [address], [place] [address]- [address] Mar, [place] [address], [place] [address]- [address]80 Dec, Bipolar 1 disorder, depressed, moderate F31.32 ; Social anxiety disorder F40.10 ; Tardive dyskinesia G24.01 ; Parkinson disease G20 and Long-term use of high-risk medication Z79.899 [facility] [address], [place] [address]- [address]01 Nov, [place] [address] [place] [id number] [place] [address] 74872- 5639 Oct, [place] [address] [place] [id number] [place] [address] 28631- 0809 Sep, Bipolar 1 disorder, depressed, moderate F31.32 ; Social anxiety disorder F40.10 ; Tardive dyskinesia G24.01 and Long-term use of high- risk medication Z79.899 [place] [address] [place] [id number] [place] [address] 96900- 6243 July, Bipolar 1 disorder, depressed, moderate F31.32 ; Social anxiety disorder F40.10 and Long-term use of high-risk medication Z79.899 [place] [address] [place] [id number] [place] [address] 64559- 9976 July, [place] [address] [place] [address] 53848- 4887 Jun, [place] [address] [place] [id number] [place] [address] 06320- 4788 Jun, [place] [address] [place] [address] 26274- 8970 Jun, [place] [address] [place] [id number] [place] [address] 10711- 2093 Jun, Bipolar 1 disorder, depressed, moderate F31.32 ; Social anxiety disorder F40.10 and Long-term use of high-risk medication Z79.899 [place] [address] [place] [address] 82303- 6450 Jun, [facility] [address] [facility] [id number] [place] [address]- 0266 Jun, [facility] [address] [facility] [id number], [place] [address]- 8176 May, [facility] [address] [facility] [id number] [place] [address]- 4567 May, Bipolar 1 disorder, depressed, moderate F31.32 ; Social anxiety disorder F40.10 and Long-term use of high-risk medication Z79.899 IMMUNIZATIONS No Known Immunizations SOCIAL HISTORY Never Assessed REASON FOR VISIT klonopin refill PLAN OF CARE VITAL SIGNS MEDICATIONS Medication Instructions Dosage Frequency Start Date End Date Duration Status Klonopin 0.5 MG Orally 5 times a day for movement disorder 1 tablet 30 days Active [...]
--- OUTSIDE RECORDS SUMMARY | 2018-01-09 14:06 | XMS REPORT ---
Author Author JOSH CHOI Organization [facility] Address [address] [place] [address] Care Team Providers Care Bundle Wrapper Name Role Phone JIMBO JOSH Unavailable PROBLEMS Type Condition ICD9-CM Code YRP19-MR Code Onset Dates Condition Status SNOMED Code Problem Bipolar disorder, current episode depressed, severe, without psychotic features F31.4 Active 776476551 Problem Parkinson disease G20 Active 40886433 Problem Long-term use of high-risk medication Z79.899 Active 187315014 Problem Social anxiety disorder F40.10 Active 95934078 Problem Tardive dyskinesia G24.01 Active 212248808 Problem Bipolar 1 disorder, depressed, moderate F31.32 Active 91467067 ALLERGIES No Information ENCOUNTERS Encounter Location Date Diagnosis [place] [address] [place] [id number] [place] [address] 08074- 4874 July, [place] [address] [address]- [address] May, [place] [address] [place] [id number] [place] [address] 52103- 9487 May, [place] [address] [place] [id number] [place] [address] 61872- 4016 May, Bipolar disorder, current episode depressed, severe, without psychotic features F31.4 ; Social anxiety disorder F40.10 ; Long-term use of high-risk medication Z79.899 ; Tardive dyskinesia G24.01 and Parkinson disease G20 [facility] [address] [id number] [place] [address] 66684- 6464 May, [facility] [address] [place] [id number] [place] [address] 92176- 7064 May, Bipolar 1 disorder, depressed, moderate F31.32 ; BMI 40.0- 44.9, adult Z68.41 ; Social anxiety disorder F40.10 ; Long-term use of high- risk medication Z79.899 ; Parkinson disease G20 and Tardive dyskinesia G24.01 [facility] [address], [place] [address]- 69[address] May, BMI 40.0-44.9, adult Z68.41 ; Bipolar 1 disorder, depressed , moderate F31.32 ; Social anxiety disorder F40.10 ; Long-term use of high-risk medication Z79.899 and Tardive dyskinesia G24.01 [place] [address] [place] [id number] [place] [address] 83725- 1332 Apr, [place] [address] [place] [id number] [place] [address] 66969- 4189 Mar, Bipolar 1 disorder, depressed, moderate F31.32 ; Social anxiety disorder F40.10 ; Long-term use of high-risk medication Z79.899 ; Tardive dyskinesia G24.01 and Parkinson disease G20 [facility] [address], [place] [address]- 5170 Mar, [place] [address] [place] [id number] [place] [address] 63359- 2016 Dec, Bipolar 1 disorder, depressed, moderate F31.32 ; Social anxiety disorder F40.10 ; Tardive dyskinesia G24.01 ; Parkinson disease G20 and Long-term use of high-risk medication Z79.899 [facility] [address], [place] [address]- 3864 Nov, [facility] [address] [place] [id number] [place] [address] 22816- 1607 Oct, [place] [address] [place] [address] 59642- 6434 Sep, Bipolar 1 disorder, depressed, moderate F31.32 ; Social anxiety disorder F40.10 ; Tardive dyskinesia G24.01 and Long-term use of high- risk medication Z79.899 [facility] [address], [place] [address]- 0186 July, Bipolar 1 disorder, depressed, moderate F31.32 ; Social anxiety disorder F40.10 and Long-term use of high-risk medication Z79.899 [facility] [address], [place] [address]- 6770 July, [facility] [address] [place] [id number] [place] [address] 09327- 9738 Jun, [facility] [address] [place] [id number] [place] [address] 98973- 3125 Jun, [facility] [address] [place] [id number] [place] [address] 95512- 9721 Jun, [facility] [address] [place] [id number] [place] [address] 25688- 9604 Jun, Bipolar 1 disorder, depressed, moderate F31.32 ; Social anxiety disorder F40.10 and Long-term use of high-risk medication Z79.899 [facility] [address] [place] [address] 46184- 3909 Jun, [facility] [address] [place] [address] 79142- 1494 Jun, [facility] [address] [place] [address] 10400- 7340 May, [facility] [address] [place] [address] 51480- 2975 May, Bipolar 1 disorder, depressed, moderate F31.32 ; Social anxiety disorder F40.10 and Long-term use of high-risk medication Z79.899 IMMUNIZATIONS No Known Immunizations SOCIAL HISTORY Never Assessed 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, 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 PLAN OF CARE Activity Details Follow Up 2 Months Reason: VITAL SIGNS Height 64.0 in 2016-08-23 Heart Rate 78 bpm 2016-08-23 Respiratory Rate 20 2016-08-23 Blood pressure systolic 118 mmHg 2016-08-23 Blood pressure diastolic 70 mmHg 2016-08-23 MEDICATIONS Medication Instructions Dosage Frequency Start Date End Date Duration Status Crestor 5 MG Orally Once a day 1 tablet 24h Active Klonopin 0.5 MG Orally 5 times a day for movement disorder 1 tablet Active Fioricet/Codeine 16-866-36-30 MG Orally every 4 hrs 1 capsule as needed 4h Active Citalopram Hydrobromide 40 mg Orally Once a day 1 tablet 24h Active Depakote ER 500 mg Orally Once a day 3 tablets 24h Active Potassium Chloride 10 MEQ Orally Twice a day 1 capsule with food 12h Active Furosemide 40 MG Orally Once a day 1 tablet 24h Active RESULTS No Results PROCEDURES No [...]
--- OUTSIDE RECORDS SUMMARY | 2018-01-09 14:06 | XMS REPORT ---
Author Author JOSH CHOI [facility] Address [address] [place] [address] Care Team Providers Care Grants Specialist Name Role Phone JOSH CHOI Unavailable PROBLEMS Type Condition ICD9-CM Code NXR41-NU Code Onset Dates Condition Status SNOMED Code Problem Long-term use of high-risk medication Z79.899 Active 424231134 Problem Social anxiety disorder F40.10 Active 80614178 Problem Bipolar disorder, current episode depressed, severe, without psychotic features F31.4 Active 535903646 Problem Bipolar disorder, in partial remission, most recent episode depressed F31.75 Active 62691502 Problem Tardive dyskinesia G24.01 Active 702423449 Problem Bipolar 1 disorder, depressed, moderate F31.32 Active 03394640 Problem BMI 40.0-44.9, adult Z68.41 Active 907352378 Problem Parkinson disease G20 Active 47922547 ALLERGIES No Information ENCOUNTERS Encounter Location Date Diagnosis [place] [address] [place] [address] 28291- 3013 Aug, [place] [address] [place] [id number] [place] [address] 48509- 1624 July, BMI 40.0-44.9, adult Z68.41 ; Social anxiety disorder F40.10 ; Bipolar disorder, in partial remission, most recent episode depressed F31.75 ; Parkinson disease G20 ; Tardive dyskinesia G24.01 and Long-term use of high-risk medication Z79.899 [facility] [address] [place] [id number] [place] [address] 79453- 9918 May, [facility] [address] [id number] [place] [address] 21041- 1556 May, [facility] [id number] [place] [address] 40999- 3493 May, [place] [address] [place] [address] 73108- 1505 May, Bipolar disorder, current episode depressed, severe, without psychotic features F31.4 ; Social anxiety disorder F40.10 ; Long-term use of high-risk medication Z79.899 ; Tardive dyskinesia G24.01 and Parkinson disease G20 [place] [address] [place] [id number] [place] [address] 25543- 5063 May, [place] [address] [place] [id number] [place] [address] 09385- 1999 May, Bipolar 1 disorder, depressed, moderate F31.32 ; BMI 40.0- 44.9, adult Z68.41 ; Social anxiety disorder F40.10 ; Long-term use of high- risk medication Z79.899 ; Parkinson disease G20 and Tardive dyskinesia G24.01 [place] [address] [place] [id number] [place] [address] 24788- 8786 May, BMI 40.0-44.9, adult Z68.41 ; Bipolar 1 disorder, depressed , moderate F31.32 ; Social anxiety disorder F40.10 ; Long-term use of high-risk medication Z79.899 and Tardive dyskinesia G24.01 [place] [address] [place] [address] 17637- 8547 Apr, [place] [address] [place] [id number] [place] [address] 82591- 6006 Mar, Bipolar 1 disorder, depressed, moderate F31.32 ; Social anxiety disorder F40.10 ; Long-term use of high-risk medication Z79.899 ; Tardive dyskinesia G24.01 and Parkinson disease G20 [place] [address] [place] [address] 82508- 6343 Mar, [place] [address] [place] [address] 19637- 4674 Dec, Bipolar 1 disorder, depressed, moderate F31.32 ; Social anxiety disorder F40.10 ; Tardive dyskinesia G24.01 ; Parkinson disease G20 and Long-term use of high-risk medication Z79.899 [facility] [address] [address] 3[address] Nov, [facility] [address] [place] [address] [id number] [place] [address] 05145- 7929 Oct, [facility] [address] [place] [address] [id number] [place] [address] 72991- 3436 Sep, Bipolar 1 disorder, depressed, moderate F31.32 ; Social anxiety disorder F40.10 ; Tardive dyskinesia G24.01 and Long-term use of high- risk medication Z79.899 [facility] [address] [place] [address] 46134- 9279 July, Bipolar 1 disorder, depressed, moderate F31.32 ; Social anxiety disorder F40.10 and Long-term use of high-risk medication Z79.899 [facility] [address] [place] [address] [id number] [place] [address] 21036- 9838 July, [facility] [address] [place] [id number] [place] [address] 84837- 0741 Jun, [facility] [address], [place] [address]- 6594 Jun, [facility] [address] [place] [address] [id number] [place] [address] 77976- 6585 Jun, [facility] [address] [place] [address] [id number] [place] [address] 56747- 5654 Jun, Bipolar 1 disorder, depressed, moderate F31.32 ; Social anxiety disorder F40.10 and Long-term use of high-risk medication Z79.899 [facility] [address] [place] [address] 25330- 8113 Jun, [facility] [address] [place] [address] [id number] [place] [address] 75235- 6716 Jun, [facility] [address] [facility] [id number] [address] 5847 May, [facility] [address] [facility] [id number] [address] 3[address] May, Bipolar 1 disorder, depressed, moderate F31.32 ; Social anxiety disorder F40.10 and Long-term use of high-risk medication Z79.899 IMMUNIZATIONS No Known Immunizations SOCIAL HISTORY Never Assessed REASON FOR VISIT f/uOtto MADSEN PLAN OF CARE Activity Details Follow Up 2 Months Reason: VITAL SIGNS Height 64.0 in 2017-01-22 Weight 236.4 lbs 2017-01-22 Heart Rate 68 bpm 2017-01-22 Respiratory Rate 18 2017-01-22 BMI 40.57 kg/m2 2017-01-22 Blood pressure systolic 128 mmHg 2017-01-22 Blood pressure diastolic 82 mmHg 2017-01-22 MEDICATIONS Medication Instructions Dosage Frequency Start Date End Date Duration Status Xarelto 15 mg Orally 2 times a day 1 tablet with food 12h Active Fioricet/Codeine 35-366-60-30 MG Orally every 4 hrs 1 capsule as needed 4h Active Furosemide 40 MG Orally Once a day 1 tablet 24h Active Depakote ER 500 mg Orally Once a day 3 tablets 24h Active Crestor 5 MG Orally Once a day 1 tablet 24h Active Potassium Chloride 10 MEQ Orally Twice a day 1 capsule with food 12h Active Citalopram Hydrobromide 40 mg Orally Once a day 1 tablet 24h Active Klonopin 0.5 MG Orally 5 times a day for movement disorder 1 tablet Active Tizanidine HCl 2 MG Orally Three times a day 1 tablet as needed 8h Active Ingrezza 40 MG Orally Once a day in the PM 2 capsules Active Botox 100 UNIT Active RESULTS No Results PROCEDURES No Known [...]
--- OUTSIDE RECORDS SUMMARY | 2018-01-09 14:06 | XMS REPORT ---
Author Author JOSH CHOI Organization [facility] Address [address] [place] [address] Care Team Providers Care Obstetrics Nurse Practitioner Name Role Phone JOSH CHOI Unavailable PROBLEMS Type Condition ICD9-CM Code ZHW79-TO Code Onset Dates Condition Status SNOMED Code Problem Long-term use of high-risk medication Z79.899 Active 119055248 Problem Social anxiety disorder F40.10 Active 50510974 Problem Bipolar disorder, current episode depressed, severe, without psychotic features F31.4 Active 721880329 Problem Bipolar disorder, in partial remission, most recent episode depressed F31.75 Active 93525913 Problem Tardive dyskinesia G24.01 Active 895468077 Problem Bipolar 1 disorder, depressed, moderate F31.32 Active 53888836 Problem BMI 40.0-44.9, adult Z68.41 Active 754234158 Problem Parkinson disease G20 Active 16066810 ALLERGIES No Information ENCOUNTERS Encounter Location Date Diagnosis [facility] [address] [place] [address] 95697- 8148 Oct, [place] [address] [place] [address] 62338- 6026 Aug, Bipolar disorder, in partial remission, most recent episode depressed F31.75 ; Social anxiety disorder F40.10 ; Long-term use of high-risk medication Z79.899 and Tardive dyskinesia G24.01 [place] [address] [place] [address] 84118- 0506 July, [place] [address] [place] [address] 35489- 2914 July, BMI 40.0-44.9, adult Z68.41 ; Social anxiety disorder F40.10 ; Bipolar disorder, in partial remission, most recent episode depressed F31.75 ; Parkinson disease G20 ; Tardive dyskinesia G24.01 and Long-term use of high-risk medication Z79.899 [place] [address] [place] [id number] [place] [address] 64618- 0393 May, [facility] [address] [place] [id number] [place] [address] 09074- 1113 May, [place] [address] [place] [id number] [place] [address] 67888- 4818 May, [place] [address] [place] [id number] [place] [address] 89694- 3040 May, Bipolar disorder, current episode depressed, severe, without psychotic features F31.4 ; Social anxiety disorder F40.10 ; Long-term use of high-risk medication Z79.899 ; Tardive dyskinesia G24.01 and Parkinson disease G20 [place] [address] [place] [id number] [place] [address] 56031- 1267 May, [place] [address] [place] [id number] [place] [address] 70358- 2713 May, Bipolar 1 disorder, depressed, moderate F31.32 ; BMI 40.0- 44.9, adult Z68.41 ; Social anxiety disorder F40.10 ; Long-term use of high- risk medication Z79.899 ; Parkinson disease G20 and Tardive dyskinesia G24.01 [place] [address] [place] [address] 53001- 2139 May, BMI 40.0-44.9, adult Z68.41 ; Bipolar 1 disorder, depressed , moderate F31.32 ; Social anxiety disorder F40.10 ; Long-term use of high-risk medication Z79.899 and Tardive dyskinesia G24.01 [place] [address] [address]- 3466 Apr, [place] [address] [address]- 7287 Mar, Bipolar 1 disorder, depressed, moderate F31.32 ; Social anxiety disorder F40.10 ; Long-term use of high-risk medication Z79.899 ; Tardive dyskinesia G24.01 and Parkinson disease G20 [place] [address] [place] [address] 99732- 8637 Mar, [facility] [address] [place] [address] 75866- 0652 Dec, Bipolar 1 disorder, depressed, moderate F31.32 ; Social anxiety disorder F40.10 ; Tardive dyskinesia G24.01 ; Parkinson disease G20 and Long-term use of high-risk medication Z79.899 [place] [address] [place] [id number] [place] [address] 26058- 7068 Nov, [place] [address] [place] [address] 23246- 9094 Oct, [place] [address] [place] [id number] [place] [address] 00451- 9825 Sep, Bipolar 1 disorder, depressed, moderate F31.32 ; Social anxiety disorder F40.10 ; Tardive dyskinesia G24.01 and Long-term use of high- risk medication Z79.899 [place] [address] [place] [address] 26412- 3231 July, Bipolar 1 disorder, depressed, moderate F31.32 ; Social anxiety disorder F40.10 and Long-term use of high-risk medication Z79.899 [place] [address] [address]- 6638 July, [place] [address] [address]- 5028 Jun, [place] [address] [place] [id number] [place] [address] 68896- 8291 Jun, [facility] [address] [address]- 2607 Jun, [place] [address] [place] [id number] [address]- 8734 Jun, Bipolar 1 disorder, depressed, moderate F31.32 ; Social anxiety disorder F40.10 and Long-term use of high-risk medication Z79.899 [facility] [address] [place] [id number] [address]- 9557 Jun, [place] [address] [place] [id number] [address]- 8203 Jun, [facility] [address] [place] [id number], [place] [address]- 7425 May, [place] [address] [place] [id number] [address]- 5003 May, Bipolar 1 disorder, depressed, moderate F31.32 [...]
--- OUTSIDE RECORDS SUMMARY | 2018-01-09 14:06 | XMS REPORT ---
Author Author JOSH CHOI [facility] Address [address] [place] [address] Care Team Providers Care Weight Shifter Name Role Phone JOSH CHOI Unavailable PROBLEMS Type Condition ICD9-CM Code HRA95-NZ Code Onset Dates Condition Status SNOMED Code Problem Long-term use of high-risk medication Z79.899 Active 208393357 Problem Social anxiety disorder F40.10 Active 17041358 Problem Bipolar disorder, current episode depressed, severe, without psychotic features F31.4 Active 573106939 Problem Bipolar disorder, in partial remission, most recent episode depressed F31.75 Active 02017082 Problem Tardive dyskinesia G24.01 Active 417808520 Problem Bipolar 1 disorder, depressed, moderate F31.32 Active 81459297 Problem BMI 40.0-44.9, adult Z68.41 Active 525224813 Problem Parkinson disease G20 Active 43832511 ALLERGIES Substance Reaction Event Type Date Status Tramadol HCl Unknown Drug Allergy May, Active ENCOUNTERS Encounter Location Date Diagnosis [facility] [address] [address]- 0406 Oct, [facility] [address] [address]- 5905 Sep, [facility] [address] [place] [id number] [place] [address] 61101- 7730 Aug, Bipolar disorder, in partial remission, most recent episode depressed F31.75 ; Social anxiety disorder F40.10 ; Long-term use of high-risk medication Z79.899 and Tardive dyskinesia G24.01 [facility] [address] [address]- 9922 July, [facility] [address] [place] [address] [id number] [place] [address] 62722- 0480 July, BMI 40.0-44.9, adult Z68.41 ; Social anxiety disorder F40.10 ; Bipolar disorder, in partial remission, most recent episode depressed F31.75 ; Parkinson disease G20 ; Tardive dyskinesia G24.01 and Long-term use of high-risk medication Z79.899 [facility] [address] [address]- 8597 May, [facility] [address] [place] [address] [id number] [place] [address] 41284- 3811 May, [facility] [address] [place] [address] 23066- 5302 May, [place] [address] [place] [id number] [place] [address] 99399- 5425 May, Bipolar disorder, current episode depressed, severe, without psychotic features F31.4 ; Social anxiety disorder F40.10 ; Long-term use of high-risk medication Z79.899 ; Tardive dyskinesia G24.01 and Parkinson disease G20 [place] [address] [address]- 4910 May, [place] [address] [place] [id number] [place] [address] 66899- 7559 May, Bipolar 1 disorder, depressed, moderate F31.32 ; BMI 40.0- 44.9, adult Z68.41 ; Social anxiety disorder F40.10 ; Long-term use of high- risk medication Z79.899 ; Parkinson disease G20 and Tardive dyskinesia G24.01 [facility] [address] [address]- 6527 May, BMI 40.0-44.9, adult Z68.41 ; Bipolar 1 disorder, depressed , moderate F31.32 ; Social anxiety disorder F40.10 ; Long-term use of high-risk medication Z79.899 and Tardive dyskinesia G24.01 [facility] [address] [place] [address] 73933- 5915 Apr, [facility] [address] [address]- 6380 Mar, Bipolar 1 disorder, depressed, moderate F31.32 ; Social anxiety disorder F40.10 ; Long-term use of high-risk medication Z79.899 ; Tardive dyskinesia G24.01 and Parkinson disease G20 [facility] [address] [place] [id number] [place] [address] 63699- 8944 Mar, [place] [address] [place] [id number] [place] [address] 19823- 9524 Dec, Bipolar 1 disorder, depressed, moderate F31.32 ; Social anxiety disorder F40.10 ; Tardive dyskinesia G24.01 ; Parkinson disease G20 and Long-term use of high-risk medication Z79.899 [place] [address] [place] [id number] [place] [address] 01503- 5905 Nov, [place] [address] [place] [id number] [place] [address] 53943- 1553 Oct, [place] [address] [place] [id number] [place] [address] 92211- 6583 Sep, Bipolar 1 disorder, depressed, moderate F31.32 ; Social anxiety disorder F40.10 ; Tardive dyskinesia G24.01 and Long-term use of high- risk medication Z79.899 [place] [address] [place] [address] 13235- 2555 July, Bipolar 1 disorder, depressed, moderate F31.32 ; Social anxiety disorder F40.10 and Long-term use of high-risk medication Z79.899 [place] [address] [place] [id number] [place] [address] 37296- 8607 July, [place] [address] [place] [address] 21915- 9246 Jun, [place] [address] [place] [id number] [place] [address] 21539- 6082 Jun, [place] [address] [address]- 6366 Jun, [facility] [address] [address]- 1640 Jun, Bipolar 1 disorder, depressed, moderate F31.32 ; Social anxiety disorder F40.10 and Long-term use of high-risk medication Z79.899 [place] [address] [address]- 7907 Jun, [place] [address] [address]- 6892 Jun, [place] [address] [place] [address] 35717- 9940 May, [place] [address] [address]- 4528 May, Bipolar 1 disorder, depressed, moderate F31.32 ; Social anxiety disorder F40.10 and Long-term use of high-risk medication Z79.899 IMMUNIZATIONS No Known Immunizations SOCIAL HISTORY Never Assessed REASON FOR VISIT f/u PLAN OF CARE Activity Details Follow Up 2 Months Reason: VITAL SIGNS Height 64.0 in 2017-06-04 Weight 236.5 lbs 2017-06-04 Heart Rate 76 bpm 2017-06-04 Respiratory Rate 20 2017-06-04 BMI 40.59 kg/m2 2017-06-04 Blood pressure systolic 128 mmHg 2017-06-04 Blood pressure diastolic 84 mmHg 2017-06-04 MEDICATIONS Medication Instructions Dosage Frequency Start Date End Date Duration Status Tizanidine HCl 2 MG Orally Three times a day 1 tablet as needed 8h Active Citalopram Hydrobromide 40 mg Orally Once a day 1 tablet 24h Active Levothyroxine Sodium 50 MCG Orally Once a day 1 tablet on an empty stomach in the morning 24h Active Propranolol HCl 80 MG Orally Once a day 1 tablet 24h Active BuPROPion HCl 75 MG Orally 2 times a day 1 tablet 12h May, Active Klonopin 0.5 MG Orally 1-2 times per day as needed for movement disorder 1 tablet Active Potassium Chloride 10 MEQ Orally Twice a day 1 capsule with food 12h Active Depakote ER 500 mg Orally Once a day. 2 tablets Active Maxalt Active Trihexyphenidyl HCl 2 MG Orally 2 times a day 1 tablet with meals 12h Unknown Fioricet/Codeine 33-628-21-30 MG Orally every 4 hrs 1 capsule as needed 4h Active Botox 100 UNIT Active Xarelto 20 MG Orally Once a day 1 tablet with food 24h Active Crestor 5 MG Orally Once a day 1 tablet 24h Active Ingrezza 40 MG Orally Once a day in the PM 2 capsules Active Furosemide 40 MG Orally Once a [...]
--- OUTSIDE RECORDS SUMMARY | 2018-01-09 14:07 | XMS REPORT | Continuity of Care Document ---
Author Author [facility] Organization [facility] Address Unknown Phone Unavailable Allergies Active Description Code Type Severity Reaction Onset Reported/Identified Relationship to Patient Clinical Status Yes TRAMADOL UNKNOWN UNKNOWN Yes No Known Drug Allergies [id number] Drug Allergy Mild N/A 07/21/2008 Yes tramadol [id number] Drug Allergy Unknown N/A 11/24/2014 Medications There is no data. 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 Ot 786.09 01/22/2014 ANNA CESAR MD Ot 716.94 01/22/2014 ANNA CESAR MD Ot V57.21 11/22/2014 Ot 722.52 11/22/2014 Ot 722.52 11/22/2014 Ot 737.30 11/22/2014 Ot 296.80 11/22/2014 Ot 722.52 11/22/2014 Ot 722.52 12/01/2014 ASIM WHALEN DO Ot 553.20 VENTRAL HERNIA NOS 12/09/2014 ASIM WHALEN DO Ot 553.20 12/09/2014 ASIM WHALEN DO Ot V72.63 12/09/2014 ASIM WHALEN DO Ot V74.8 05/02/2015 Ot 722.52 05/02/2015 Ot 722.52 05/02/2015 Ot 737.30 05/02/2015 Ot 296.80 05/02/2015 Ot 722.52 05/02/2015 Ot 722.52 05/02/2015 MARLEE CONTEH, ASIM Ot 553.20 05/02/2015 MARLEE DO, ANUSHKAROUTIE Ot V72.63 05/02/2015 MARLEE CONTEH, ASIM Ot V74.8 05/02/2015 PITA GOMEZ DO Ot R09.1 10/28/2015 AIDEN PENNY, YAQUELIN A Ot E05.90 THYROTOXICOSIS, UNSP WITHOUT THYROTOXIC 01/04/2016 OCONNELL DO, JONATHAN L Ot E05.90 THYROTOXICOSIS, UNSP WITHOUT THYROTOXIC 01/11/2016 OCONNELL DO, JONATHAN L Ot E05.90 THYROTOXICOSIS, UNSP WITHOUT THYROTOXIC 08/08/2016 KOURTNEY CONTEH, JONATHAN L Ot E04.1 NONTOXIC SINGLE THYROID NODULE 03/21/2017 GIRISH FLAHERTY MD Ot Z47.89 ENCOUNTER FOR OTHER ORTHOPEDIC AFTERCARE 04/05/2017 HENOK PATEL MD Ot D68.51 ACTIVATED PROTEIN C RESISTANCE 04/05/2017 HENOK PATEL MD Ot E66.9 OBESITY, UNSPECIFIED 04/05/2017 HENOK PATEL MD, Ot F31.32 BIPOLAR DISORDER, CURRENT EPISODE DEPRES 04/05/2017 HENOK PATEL MD Ot Z68.41 BODY MASS INDEX (BMI) 40.0-44.9, ADULT 04/05/2017 HENOK PATEL MD Ot Z79.899 OTHER SNF (CURRENT) DRUG THERAPY 04/05/2017 HENOK PATEL MD Ot Z86.718 PERSONAL HISTORY OF OTHER VENOUS THROMBO 04/11/2017 GIRISH FLAHERTY MD Ot Z47.89 ENCOUNTER FOR OTHER ORTHOPEDIC AFTERCARE 05/15/2017 GIRISH FLAHERTY MD Ot Z47.89 ENCOUNTER FOR OTHER ORTHOPEDIC AFTERCARE 05/15/2017 HENOK PATEL MD, Ot D68.51 ACTIVATED PROTEIN C RESISTANCE 05/15/2017 HENOK PATEL MD Ot E66.9 OBESITY, UNSPECIFIED 05/15/2017 HENOK PATEL MD, Ot F31.32 BIPOLAR DISORDER, CURRENT EPISODE DEPRES 05/15/2017 HENOK PATEL MD Ot Z68.41 BODY MASS INDEX (BMI) 40.0-44.9, ADULT 05/15/2017 HENOK PATEL MD Ot 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 05/15/2017 HENOK PATEL MD Ot Z86.718 PERSONAL HISTORY OF OTHER VENOUS THROMBO 06/18/2017 REYNOLD PENNY, GIRISH Muniz Ot Z47.89 ENCOUNTER FOR OTHER ORTHOPEDIC AFTERCARE 06/19/2017 GIRISH FLAHERTY MD Ot Z47.89 ENCOUNTER FOR OTHER ORTHOPEDIC AFTERCARE 07/03/2017 HENOK PATEL MD Ot D68.51 ACTIVATED PROTEIN C RESISTANCE 07/03/2017 HENOK PATEL MD Ot E66.9 OBESITY, UNSPECIFIED 07/03/2017 HENOK PATEL MD Ot F31.32 BIPOLAR DISORDER, CURRENT EPISODE DEPRES 07/03/2017 HENOK PATEL MD Ot Z68.41 BODY MASS INDEX (BMI) 40.0-44.9, ADULT 07/03/2017 HENOK PATEL MD Ot Z79.899 OTHER SNF (CURRENT) DRUG THERAPY 07/03/2017 HENOK PATEL MD Ot Z86.718 PERSONAL HISTORY OF OTHER VENOUS THROMBO 07/04/2017 HENOK PATEL MD Ot D68.51 ACTIVATED PROTEIN C RESISTANCE 07/04/2017 HENOK PATEL MD Ot E66.9 OBESITY, UNSPECIFIED 07/04/2017 HENOK PATEL MD Ot F31.32 BIPOLAR DISORDER, CURRENT EPISODE DEPRES 07/04/2017 HENOK PATEL MD Ot Z68.41 BODY MASS INDEX (BMI) 40.0-44.9, ADULT 07/04/2017 HENOK PATEL MD Ot 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 07/04/2017 HENOK PATEL MD Ot Z86.718 PERSONAL HISTORY OF OTHER VENOUS THROMBO 10/04/2017 HENOK PATEL MD Ot D68.51 ACTIVATED PROTEIN C RESISTANCE 10/04/2017 HENOK PATEL MD Ot E66.9 OBESITY, UNSPECIFIED 10/04/2017 HENOK PATEL MD Ot F31.32 BIPOLAR DISORDER, CURRENT EPISODE DEPRES 10/04/2017 HENOK PATEL MD Ot Z68.41 BODY MASS INDEX (BMI) 40.0-44.9, ADULT 10/04/2017 HENOK PATEL MD Ot Z79.899 OTHER SNF (CURRENT) DRUG THERAPY 10/04/2017 HENOK PATEL MD Ot Z86.718 PERSONAL HISTORY OF OTHER VENOUS THROMBO 10/29/2017 HENOK PATEL MD, Ot D68.51 ACTIVATED PROTEIN C RESISTANCE 10/29/2017 HENOK APTEL MD Ot E66.9 OBESITY, UNSPECIFIED 10/29/2017 HENOK PATEL MD Ot F31.32 BIPOLAR DISORDER, CURRENT EPISODE DEPRES 10/29/2017 HENOK PATEL MD Ot Z68.41 BODY MASS INDEX (BMI) 40.0-44.9, ADULT 10/29/2017 HENOK PATEL MD Ot Z79.899 OTHER SNF (CURRENT) DRUG THERAPY 10/29/2017 HENOK PATEL MD Ot Z86.718 PERSONAL HISTORY OF OTHER VENOUS THROMBO 12/31/2017 HENOK PATEL MD, Ot D68.51 ACTIVATED PROTEIN C RESISTANCE 12/31/2017 HENOK PATEL MD Ot E66.9 OBESITY, UNSPECIFIED 12/31/2017 HENOK PATEL MD Ot F31.32 BIPOLAR DISORDER, CURRENT EPISODE DEPRES 12/31/2017 HENOK PATEL MD Ot Z68.41 BODY MASS INDEX (BMI) 40.0-44.9, ADULT 12/31/2017 HENOK PATEL MD Ot Z79.899 OTHER SNF (CURRENT) DRUG THERAPY 12/31/2017 HENOK PATEL MD Ot Z86.718 PERSONAL HISTORY OF OTHER VENOUS THROMBO 01/06/2018 Yaquelin Wolfe W 375.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 Results Test Result Range CBC With Differential/Platelet - 07/09/16 08:41 WBC 6.8 x10E3/uL 3.4-10.8 RBC 4.06 x10E6/uL 3.77-5.28 Hemoglobin 12.9 g/dL 11.1-15.9 Hematocrit 37.8 % 34.0-46.6 MCV 93 fL 79-97 MCH 31.8 pg 26.6-33.0 MCHC 34.1 g/dL 31.5-35.7 RDW 14.4 % 12.3-15.4 Platelets 169 x10E3/uL 150-379 Neutrophils 52 % Lymphs 37 % Monocytes 9 % Eos 2 % Basos 0 % Neutrophils (Absolute) 3.5 x10E3/uL 1.4-7.0 Lymphs (Absolute) 2.6 x10E3/uL 0.7-3.1 Monocytes(Absolute) 0.6 x10E3/uL 0.1-0.9 Eos (Absolute) 0.1 x10E3/uL 0.0-0.4 Baso (Absolute) 0.0 x10E3/uL 0.0-0.2 Immature Granulocytes 0 % Immature Grans (Abs) 0.0 x10E3/uL 0.0-0.1 Comp. Metabolic Panel (14) - 07/09/16 08:41 Glucose, Serum 90 mg/dL 65-99 BUN 15 mg/dL 6-24 Creatinine, Serum 0.86 mg/dL 0.57-1.00 eGFR If NonAfricn Am 82 mL/min/1.73 >59 eGFR If Africn Am 94 mL/min/1.73 >59 BUN/Creatinine Ratio 17 9-23 Sodium, Serum 142 mmol/L 134-144 Potassium, Serum 4.4 mmol/L 3.5-5.2 Chloride, Serum 106 mmol/L 96-106 Carbon Dioxide, Total 21 mmol/L 18-29 Calcium, Serum 8.8 mg/dL 8.7-10.2 Protein, Total, Serum 5.9 g/dL 6.0-8.5 Albumin, Serum 3.6 g/dL 3.5-5.5 Globulin, Total 2.3 g/dL 1.5-4.5 A/G Ratio 1.6 1.2-2.2 Bilirubin, Total 0.2 mg/dL 0.0-1.2 Alkaline Phosphatase, S 45 IU/L 39-117 AST (SGOT) 20 IU/L 0-40 ALT (SGPT) 17 IU/L 0-32 Lipid Panel - 07/09/16 08:41 Cholesterol, Total 140 mg/dL 100-199 Triglycerides 79 mg/dL 0-149 HDL Cholesterol 53 mg/dL >39 VLDL Cholesterol Chris 16 mg/dL 5-40 LDL Cholesterol Calc 71 mg/dL 0-99 TSH - 07/09/16 08:41 TSH 8.320 uIU/mL 0.450-4.500 Valproic Acid (Depakote)(R),S - 07/09/16 08:41 Valproic Acid (Depakote),S 84 ug/mL 50-100 D-Dimer - 10/20/16 10:38 DDimer 562.00 ng/mL 21.00-229.00 BMP - 10/22/16 09:51 Anion Gap 15 6-14 BUN 16 mg/dL 5-25 Calcium 9.1 mg/dL 8.3-10.4 Chloride 107 mmol/L 95-114 CO2 21 mEq/L 22-33 Creat 0.82 mg/dL 0.50-1.50 eGFR 75 mL/min/1.73m2 >59 Glucose 97 mg/dL 70-110 Osmo 288 280-295 Potassium 4.0 mmol/L 3.5-5.3 Sodium 139 mmol/L 134-148 Lab Card - 12/31/16 09:50 LabCard Specimen submitted to [email or web address] for Testing. Lab Card - 01/06/18 11:05 LabCard Specimen submitted to [email or web address] Testing. Encounters ACCT No. Visit Date/Time Discharge Status Pt. Type Provider Facility Loc./Unit Complaint [id number] 12/30/2017 00:11:00 12/30/2017 23:59:59 CLS Preadmit HENOK PATEL MD [facility] ONC [id number] 10/03/2017 09:30:00 10/29/2017 00:01:00 DIS Outpatient HENOK PATEL MD [facility] ONC [id number] 04/04/2017 13:38:00 07/03/2017 00:01:00 DIS Outpatient HENOK PATEL MD [facility] ONC [id number] 06/19/2017 00:41:00 06/19/2017 23:59:59 CLS Preadmit GIRISH FLAHERTY MD [facility] REHAB L [facility] ARTHROPLASTY [id number] 05/17/2017 12:03:00 06/18/2017 00:01:00 DIS Outpatient GIRISH FLAHERTY MD [facility] RE[facility]AB [facility] ARTHROPLASTY [id number] 07/16/2016 10:52:00 07/16/2016 23:59:59 CLS Outpatient JONATHAN OCONNELL DO L [facility] RAD LT THYROID NODULE [id number] 01/02/2016 08:59:00 01/02/2016 23:59:59 CLS Outpatient JONATHAN OCONNELL DO L [facility] RAD HYPERTHYROIDISM [id number] 10/11/2015 11:40:00 10/11/2015 23:59:59 CLS Outpatient YAQUELIN WOLFE MD [facility] CARD [id number] 05/02/2015 13:29:00 05/02/2015 16:30:00 DIS Emergency GOMEZ DOMITILA CONTEHR L [facility] ER [id number] 11/30/2014 11:15:00 12/01/2014 16:44:00 DIS Outpatient MARLEE DO ANUSHKAJOSE ALBERTO [facility] SDC [id number] 11/24/2014 11:49:00 11/24/2014 23:59:59 CLS Outpatient MARLEE CONTEH ANUSHKAJOSE ALBERTO [facility] PREOP [id number] 01/05/2014 15:45:00 01/22/2014 14:17:00 DIS Outpatient ANNA CESAR MD [facility] REHAB [id number] 08/12/2012 20:27:00 08/13/2012 06:20:00 DIS Outpatient 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 [facility] SLEEP [id number] 11/22/2014 11:41:00 Document Registration [id number] 11/22/2014 11:41:00 Document Registration [id number] 05/09/2012 15:59:00 Document Registration [id number] 03/17/2012 12:15:00 Document Registration [id number] 03/14/2012 12:11:00 Document Registration [id number] 03/14/2012 12:07:00 Document Registration [id number] 02/19/2012 09:39:00 Document Registration [id number] 02/14/2012 08:04:00 Document Registration [id number] 01/31/2011 12:45:00 Document Registration [id number] 11/30/2014 11:23:44 ACT Document Registration [id number] 01/06/2018 11:01:00 01/06/2018 23:59:00 DIS Outpatient Yaquelin Wolfe [id number] 12/31/2016 10:32:00 12/31/2016 23:59:00 DIS Outpatient Aiden Yaquelin [id number] 12/31/2016 09:50:00 12/31/2016 23:59:00 DIS Outpatient AidenYaquelin [id number] 10/22/2016 08:33:00 10/22/2016 23:59:00 DIS Outpatient Jhonatan Carvalho [id number] 10/20/2016 10:37:00 10/20/2016 23:59:00 DIS Outpatient Jhonatan Carvalho [id number] 10/07/2016 00:00:00 10/07/2016 23:59:00 DIS Outpatient MITCHELL FARR [id number] 08/06/2017 12:00:00 08/06/2017 23:59:59 CLS Outpatient Nini Wolfea [facility] [id number] 07/10/2016 08:42:00 Document Registration
--- OUTSIDE RECORDS SUMMARY | 2018-01-09 14:07 | XMS REPORT ---
Author Author JOSH CHOI [facility] Address [address] [place] [address] Care Team Providers Care Vision Teacher Name Role Phone JIMBO JOSH Unavailable PROBLEMS Type Condition ICD9-CM Code [id number] Code Onset Dates Condition Status SNOMED Code Problem Bipolar disorder, current episode depressed, severe, without psychotic features F31.4 Active 480798270 Problem Parkinson disease G20 Active 14230972 Problem Long-term use of high-risk medication Z79.899 Active 699893191 Problem Social anxiety disorder F40.10 Active 39988075 Problem Tardive dyskinesia G24.01 Active 582550630 Problem Bipolar 1 disorder, depressed, moderate F31.32 Active 63020790 ALLERGIES No Information ENCOUNTERS Encounter Location Date Diagnosis [facility] [id number] [place] [address] July, [facility] [id number] [place] [address] 46[address] 84[address] May, [facility] [id number] [place] [address] 31553[address] 56[address] May, [facility] [id number] [place] [address] 59709[address] 30[address] May, [facility] [id number] [place] [address]4531- 978[address] May, Bipolar disorder, current episode depressed, severe, without psychotic features F31.4 ; Social anxiety disorder F40.10 ; Long-term use of high-risk medication Z79.899 ; Tardive dyskinesia G24.01 and Parkinson disease G20 [facility] [id number], [place] [address] May, [facility] [id number] [place] [address]00[address] 39[address] May, Bipolar 1 disorder, depressed, moderate F31.32 ; BMI 40.0- 44.9, adult Z68.41 ; Social anxiety disorder F40.10 ; Long-term use of high- risk medication Z79.899 ; Parkinson disease G20 and Tardive dyskinesia G24.01 [facility] [id number] [place] [address] May, BMI 40.0-44.9, adult Z68.41 ; Bipolar 1 disorder, depressed , moderate F31.32 ; Social anxiety disorder F40.10 ; Long-term use of high-risk medication Z79.899 and Tardive dyskinesia G24.01 [facility] [id number] [place] [address]3964- 2755 Apr, [facility] [id number] [place] [address] 28[address]- [address] Mar, Bipolar 1 disorder, depressed, moderate F31.32 ; Social anxiety disorder F40.10 ; Long-term use of high-risk medication Z79.899 ; Tardive dyskinesia G24.01 and Parkinson disease G20 [facility] [id number] [place] [address] Mar, [facility] [id number] [place] [address] 11294- 82[address] Dec, Bipolar 1 disorder, depressed, moderate F31.32 ; Social anxiety disorder F40.10 ; Tardive dyskinesia G24.01 ; Parkinson disease G20 and Long-term use of high-risk medication Z79.899 [facility] [id number] [place] [address] 63412- 16[address] Nov, [facility] [id number] [place] [address] 06636- 12[address] Oct, [facility] [id number] [place] [address] 09698- 42[address] Sep, Bipolar 1 disorder, depressed, moderate F31.32 ; Social anxiety disorder F40.10 ; Tardive dyskinesia G24.01 and Long-term use of high- risk medication Z79.899 [facility] [id number], [place] [address] July, Bipolar 1 disorder, depressed, moderate F31.32 ; Social anxiety disorder F40.10 and Long-term use of high-risk medication Z79.899 [facility] [id number] [place] [address] 94573- 85[address] July, [facility] [id number] [place] [address] 87397- [address] Jun, [facility] [id number] [place] [address]89- [address] Jun, [facility] [id number] [place] [address] Jun, [facility] [id number] [place] [address]- [address] Jun, Bipolar 1 disorder, depressed, moderate F31.32 ; Social anxiety disorder F40.10 and Long-term use of high-risk medication Z79.899 [facility] [id number], [place] [address] Jun, [facility] [id number] [address] Jun, [facility] [id number] [address] May, [facility] [id number], [place] [address] May, Bipolar 1 disorder, depressed, moderate F31.32 ; Social anxiety disorder F40.10 and Long-term use of high-risk medication Z79.899 IMMUNIZATIONS No Known Immunizations SOCIAL HISTORY Never Assessed REASON FOR VISIT Klonopin PLAN OF CARE VITAL SIGNS MEDICATIONS Medication Instructions Dosage Frequency Start Date End Date Duration Status Klonopin 0.5 MG Orally 5 times a day for movement disorder 1 tablet Active RESULTS [...]
[2018-01-09 14:39] VITALS: BP 130/84
--- NOTE | 2018-01-09 14:51 | ED General ---
General Stated Complaint: N/V Source of Information: Patient Exam Limitations: No Limitations History of Present Illness Date Seen by Provider: Jan 09, 2018 Time Seen by Provider: 14:49 Initial Comments To ER with reports of nausea vomiting and headache. She is a history of migraines and usually they start with nausea and then the headache comes. However this started with a headache and the nausea followed. She's been vomiting quite a bit yesterday but none today. She has taken her home dosages of Fioricet without improvement. She denies fevers chills or diarrhea. Timing/Duration: 1-2 Days Severity: Moderate Associated Systoms: Headaches, Nausea/Vomiting Allergies and Home Medications Allergies Coded Allergies: tramadol (Verified Allergy, Unknown, 11/24/14) Home Medications Acetamin/Butalbital/Caffeine 1 Tab Tab, PRN, (Reported) Citalopram Hydrobromide 20 Mg Tablet, 40 MG PO DAILY, (Reported) Clonazepam 1 Mg Tablet, 1 MG PO PRN, (Reported) Furosemide 40 Mg Tablet, 40 MG PO DAILY, (Reported) Hydroxyzine HCl 10 Mg Tablet, 10 MG PO PRN, (Reported) Ibuprofen 200 Mg Tablet, 800 MG PO Q6H Prescribed by: BOB WHALEN on 12/01/14 1443 Lurasidone HCl 80 Mg Tablet, 80 MG PO DAILY, (Reported) Oxycodone HCl/Acetaminophen 1 Each Tablet, 2 EACH PO Q4H Prescribed by: BOB WHALEN on 12/01/14 1443 Potassium Chloride 10 Meq Capsule.er, 10 MEQ PO DAILY, (Reported) Promethazine HCl 25 Mg Supp.rect, 25 MG RC Q8H PRN for NAUSEA/VOMITING Prescribed by: BOB WHALEN on 12/01/14 1440 Ropinirole HCl 0.25 Mg Tab, 0.25 MG PO DAILY, (Reported) Rosuvastatin Calcium 5 Mg Tablet, 5 MG PO DAILY, (Reported) Patient Home Medication List Home Medication List Reviewed: Yes Review of Systems Review of Systems Constitutional: see HPI EENTM: see HPI, other (photophobia) Respiratory: no symptoms reported Cardiovascular: no symptoms reported Gastrointestinal: No abdominal pain, No diarrhea; nausea, vomiting Genitourinary: no symptoms reported Psychiatric/Neurological: See HPI, Headache Hematologic/Lymphatic: No Symptoms Reported Past Evatqsc-Kcthaf-Zczjrt Hx Past Medical History High Cholesterol Reproductive Disorders: No Female Reproductive Disorders: Denies Sexually Transmitted Disease: No HIV/AIDS: No Diverticulosis Arthritis Loss of Vision: Denies Hearing Impairment: Denies Anxiety, Bipolar, Depression Adverse Reaction/Blood Tranf: No Physical Exam Vital Signs Vital Signs - First Documented 01/09/18 14:39 Temp 99.3 Pulse 67 Resp 18 B/P (MAP) 130/84 (99) Pulse Ox 98 O2 Delivery Room Air Capillary Refill : Height, Weight, BMI Height: 5'4.00" Weight: 223lbs. oz. 101.234012ju; BMI Method:Stated General Appearance: No Apparent Distress, WD/WN Eyes: Bilateral Eye Normal Inspection, Bilateral Eye PERRL HEENT: PERRL/EOMI, TMs Normal Neck: Full Range of Motion, Normal Inspection Respiratory: Normal Breath Sounds, No Accessory Muscle Use, No Respiratory Distress Cardiovascular: Regular Rate, Rhythm Gastrointestinal: Normal Bowel Sounds, Non Tender, Soft Extremity: Normal Capillary Refill, Normal Inspection Neurologic/Psychiatric: Alert, Oriented x3 Skin: Normal Color, Warm/Dry Progress/Results/Core Measures Suspected Sepsis SIRS Temperature: Pulse: Respiratory Rate: Laboratory Tests 01/09/18 14:46: White Blood Count 8.6 Blood Pressure / Mean: Laboratory Tests 01/09/18 14:46: Creatinine 0.93, Platelet Count 232, Total Bilirubin 0.3 Results/Orders Lab Results Laboratory Tests Test 01/09/18 14:46 01/09/18 15:05 Range/Units White Blood Count 8.6 4.3-11.0 10^3/uL Red Blood Count 4.14 L 4.35-5.85 10^6/uL Hemoglobin 13.1 11.5-16.0 G/DL Hematocrit 39 35-52 % Mean Corpuscular Volume 94 80-99 FL Mean Corpuscular Hemoglobin 32 25-34 PG Mean Corpuscular Hemoglobin Concent 34 32-36 G/DL Red Cell Distribution Width 12.8 10.0-14.5 % Platelet Count 232 130-400 10^3/uL Mean Platelet Volume 9.2 7.4-10.4 FL Neutrophils (%) (Auto) 72 42-75 % Lymphocytes (%) (Auto) 22 12-44 % Monocytes (%) (Auto) 6 0-12 % Eosinophils (%) (Auto) 0 0-10 % Basophils (%) (Auto) 0 0-10 % Neutrophils # (Auto) 6.1 1.8-7.8 X 10^3 Lymphocytes # (Auto) 1.9 1.0-4.0 X 10^3 Monocytes # (Auto) 0.5 0.0-1.0 X 10^3 Eosinophils # (Auto) 0.0 0.0-0.3 10^3/uL Basophils # (Auto) 0.0 0.0-0.1 10^3/uL Sodium Level 141 135-145 MMOL/L Potassium Level 3.3 L 3.6-5.0 MMOL/L Chloride Level 108 H 98-107 MMOL/L Carbon Dioxide Level 22 21-32 MMOL/L Anion Gap 11 5-14 MMOL/L Blood Urea Nitrogen 10 7-18 MG/DL Creatinine 0.93 0.60-1.30 MG/DL Estimat Glomerular Filtration Rate > 60 BUN/Creatinine Ratio 11 Glucose Level 124 H 70-105 MG/DL Calcium Level 9.3 8.5-10.1 MG/DL Corrected Calcium 9.2 8.5-10.1 MG/DL Total Bilirubin 0.3 0.1-1.0 MG/DL Aspartate Amino Transf (AST/SGOT) 14 5-34 U/L Alanine Aminotransferase (ALT/SGPT) 12 0-55 U/L Alkaline Phosphatase 50 40-136 U/L Total Protein 6.9 6.4-8.2 GM/DL Albumin 4.1 3.2-4.5 GM/DL Urine Color YELLOW Urine Clarity SLIGHTLY CLOUDY Urine pH 8 5-9 Urine Specific [place] 1.015 L 1.016-1.022 Urine Protein NEGATIVE NEGATIVE Urine Glucose (UA) NEGATIVE NEGATIVE Urine Ketones NEGATIVE NEGATIVE Urine Nitrite NEGATIVE NEGATIVE Urine Bilirubin NEGATIVE NEGATIVE Urine Urobilinogen NORMAL NORMAL MG/DL Urine Leukocyte Esterase 3+ H NEGATIVE Urine RBC (Auto) NEGATIVE NEGATIVE Urine RBC 0-2 /HPF Urine WBC 25-50 H /HPF Urine Squamous Epithelial Cells 10-25 H /HPF Urine Crystals NONE /LPF Urine Bacteria FEW H /HPF Urine Casts NONE /LPF Urine Mucus NEGATIVE /LPF Urine Culture Indicated YES My Orders Orders - SHANIQUE JOSHI [employer] WORKER Cbc With Automated Diff (01/09/18 14:48) Comprehensive Metabolic Panel (01/09/18 14:48) Ua Culture If Indicated (01/09/18 14:48) Iv Heplock-Insert (Order) (01/09/18 14:48) Ns Iv 1000 Ml (Sodium Chloride 0.9%) (01/09/18 15:00) Ondansetron Injection (Zofran Injectio (01/09/18 15:00) Ketorolac Injection (Toradol Injection) (01/09/18 15:00) Diphenhydramine Injection (Benadryl Inje (01/09/18 15:00) Urine Culture (01/09/18 15:05) Medications Given in ED Current Medications Medications Dose Ordered Sig/Alfred Route Start Time Stop Time Status Last Admin Dose Admin Diphenhydramine HCl 25 mg ONCE ONCE IVP 01/09/18 15:00 01/09/18 15:01 DC 01/09/18 15:10 25 MG Ketorolac Tromethamine 30 mg ONCE ONCE IVP 01/09/18 15:00 01/09/18 15:01 DC 01/09/18 15:10 30 MG Ondansetron HCl 8 mg ONCE ONCE IVP 01/09/18 15:00 01/09/18 15:01 DC 01/09/18 15:10 8 MG Vital Signs/I&O 01/09/18 14:39 Temp 99.3 Pulse 67 Resp 18 B/P (MAP) 130/84 (99) Pulse Ox 98 O2 Delivery Room Air Capillary Refill : Departure Communication (Admissions) [id number] much better at this time. Impression Primary Impression: Headache Additional Impressions: Nausea & vomiting Urinary tract infection Disposition: 01 HOME, SELF-CARE Condition: Improved Departure-Patient Inst. Decision time for Depature: 15:27 Referrals: PAPA WOLFE MD (PCP) Primary Care Physician Patient Instructions: Headache, Adult (DC), Urinary Tract Infection, Adult (DC) Add. Discharge Instructions: 1. Return to ER for any concerns 2. Scripts Ondansetron (Zofran Odt) 8 Mg Tab.rapdis 8 MG PO Q6H PRN for NAUSEA/VOMITING, #30 TAB Prov: SHANIQUE JOSHI APRN 01/09/18 Sulfamethoxazole/Trimethoprim (Bactrim Ds Tablet) 1 Each Tablet 1 EACH PO BID, #6 TAB Prov: SHANIQUE JOSHI APRN 01/09/18 Copy Copies To 1: PAPA WOLFE MD, PETER J APRN Jan 09, 2018 14:51
[2018-01-09 14:54] LABS: BASOPHILS % (AUTO) 0 % (0-10); EOSINOPHILS % (AUTO) 0 % (0-10); HEMATOCRIT 39 % (35-52); HEMOGLOBIN 13.1 G/DL (11.5-16.0); LYMPHOCYTES # (AUTO) 1.9 X 10^3 (1.0-4.0); LYMPHOCYTES % (AUTO) 22 % (12-44); MEAN CORPUSCULAR HEMOGLOBIN 32 PG (25-34); MEAN CORPUSCULAR HGB CONC 34 G/DL (32-36); MEAN CORPUSCULAR VOLUME 94 FL (80-99); MEAN PLATELET VOLUME 9.2 FL (7.4-10.4); MONOCYTES # (AUTO) 0.5 X 10^3 (0.0-1.0); MONOCYTES % (AUTO) 6 % (0-12); NEUTROPHILS # (AUTO) 6.1 X 10^3 (1.8-7.8); NEUTROPHILS % (AUTO) 72 % (42-75); PLATELET COUNT 232 10^3/uL (130-400); RED BLOOD COUNT 4.14 10^6/uL (4.35-5.85); RED CELL DISTRIBUTION WIDTH 12.8 % (10.0-14.5); WHITE BLOOD COUNT 8.6 10^3/uL (4.3-11.0)
[2018-01-09] MEDS ORDERED: ONDANSETRON 4 MG/2 ML (SDV) Z0FRAN IVP ONE (15:00)
[2018-01-09] MEDS ORDERED: KETOROLAC 30 MG/ML VIAL IVP ONE (15:00)
[2018-01-09] MEDS ORDERED: NS IV 1000 ML 1,000 ML IV SCH (15:00)
[2018-01-09] MEDS ORDERED: diphenhydrAMINE 50 MG/ML INJ (BENADRYL) IVP ONE (15:00)
[2018-01-09 15:14] LABS: ALANINE AMINOTRANSFERASE 12 U/L (0-55); ALBUMIN 4.1 GM/DL (3.2-4.5); ALKALINE PHOSPHATASE 50 U/L (40-136); BILIRUBIN,TOTAL 0.3 MG/DL (0.1-1.0); BUN/CREATININE RATIO 11; CALCIUM 9.3 MG/DL (8.5-10.1); CARBON DIOXIDE 22 MMOL/L (21-32); CHLORIDE 108 MMOL/L (98-107); CREATININE SERUM 0.93 MG/DL (0.60-1.30); GFR ESTIMATED > 60; GLUCOSE 124 MG/DL (70-105); POTASSIUM 3.3 MMOL/L (3.6-5.0); SODIUM 141 MMOL/L (135-145); TOTAL PROTEIN 6.9 GM/DL (6.4-8.2)
[2018-01-09 15:18] LABS: BILIRUBIN,URINE NEGATIVE (NEGATIVE); CLARITY,URINE SLIGHTLY CLOUDY; COLOR,URINE YELLOW; GLUCOSE, URINE (UA) NEGATIVE (NEGATIVE); KETONES,URINE NEGATIVE (NEGATIVE); LEUKOCYTE ESTERASE ,URINE 3+ (NEGATIVE); NITRITE,URINE NEGATIVE (NEGATIVE); PH,URINE 8 (5-9); PROTEIN,URINE NEGATIVE (NEGATIVE); UROBILINOGEN,URINE NORMAL (NORMAL)
[2018-01-09 15:38] LABS: RBC,URINE 0-2 /HPF; WBC,URINE 25-50 /HPF
[2018-01-09 15:39] LABS: BACTERIA,URINE FEW /HPF
[2018-01-09] MEDS ORDERED: SULF1TAB35 PO (15:47)
[2018-01-09] MEDS ORDERED: ONDA8TAB9 PO (15:47)
== END 2018-01-09 16:17 | disposition home or self-care (01) ==
LOC: EDUNIT# 13:53 → ER 13:54
DX: N39.0 Urinary tract infection, site not specified (principal); R51 Headache; E78.00 Pure hypercholesterolemia, unspecified; F41.9 Anxiety disorder, unspecified; F31.9 Bipolar disorder, unspecified; Z87.19 Personal history of other diseases of the digestive system; Z88.6 Allergy status to analgesic agent
CPT/HCPCS: 36415; 80053; 81000; 85025; 87088; 99282

== ENCOUNTER 2019-05-26 19:48 | Emergency (ER) | payer BC ==
[~2019-05-26] VITALS: Ht 163 cm; Wt 85.0 kg
[~2019-05-26 19:48] MED LIST changes: +ONDA8TAB9 PO; +SULF1TAB35 PO
[2019-05-26] MEDS ORDERED: BENZONATATE 100 MG (TESSALON) CAPSULE PO ONE (20:45)
--- NOTE | 2019-05-26 20:57 | Diagnostic Imaging Report ---
INDICATION: Cough and chest pain. Three views were obtained FINDINGS: Right lung is clear. There is no pleural effusion or pneumothorax. There are no displaced rib fractures. IMPRESSION: No displaced rib fractures Dictated by: Dictated on workstation # [id number]
--- NOTE | 2019-05-26 20:57 | Diagnostic Imaging Report ---
INDICATION: Cough and chest pain. PA and lateral views were obtained. FINDINGS: The heart size, mediastinal configuration, and pulmonary vascularity are within normal limits. There is no pleural effusion, pneumothorax, or pneumonia. The osseous structures are unremarkable. IMPRESSION: No acute cardiopulmonary abnormality. Dictated by: Dictated on workstation # [id number]
[2019-05-26] MEDS ORDERED: ONDANSETRON 4 MG (ZOFRAN) ORAL DISSOLVE TAB SL ONE (21:30)
[2019-05-26] MEDS ORDERED: BENZ100C18 PO (21:30)
[2019-05-26] MEDS ORDERED: OXYC1TAB87 PO (21:30)
[2019-05-26] MEDS ORDERED: oxyCODONE/APAP 5/325MG (PERCOCET 5) TABLET PO ONE (21:30)
[2019-05-26] MEDS ORDERED: predniSONE 20 MG TAB PO ONE (21:30)
[2019-05-26] MEDS ORDERED: PRD10T PO (21:30)
--- NOTE | 2019-05-26 21:30 | ED Respiratory ---
General Chief Complaint: Respiratory Problems Stated Complaint: SOB, SHARP PAIN IN RIGHT SIDE Nursing Triage Note: Patient reports SOA x 4 hours, anxiety and pain on R side Source: patient Exam Limitations: no limitations History of Present Illness Date Seen by Provider: May 26, 2019 Time Seen by Provider: 20:25 Initial Comments This 48-year-old woman presents to the emergency room with complaints of pain in the right lower lateral chest, worse with inspiration. She has had a cough for several weeks and recently completed a round of Levaquin and 5 days of predni sone. The cough has been improving but the pain is new. Pain is been present for about 4 hours. She took ibuprofen 600 mg at home which has not improved much. She takes Xarelto due to factor V disease. She has been taking Robitussin, elder ibanez, and some other type of julz-uhx-fywnmov homeopathic product to try to control her cough. She denies any productive sputum or fever. She has no wheezing and denies any underlying respiratory problems. Dr. Wolfe's her primary care provider. Allergies and Home Medications Allergies Coded Allergies: tramadol (Verified Allergy, Unknown, 11/24/14) Home Medications Acetamin/Butalbital/Caffeine 1 Tab Tab, PRN, (Reported) Benzonatate 100 Mg Capsule, 200 MG PO TID PRN for COUGH Prescribed by: GARY MENDIETA on 05/26/192129 Citalopram Hydrobromide 20 Mg Tablet, 40 MG PO DAILY, (Reported) Clonazepam 1 Mg Tablet, 1 MG PO PRN, (Reported) Furosemide 40 Mg Tablet, 40 MG PO DAILY, (Reported) Hydroxyzine HCl 10 Mg Tablet, 10 MG PO PRN, (Reported) Ibuprofen 200 Mg Tablet, 800 MG PO Q6H Prescribed by: BOB WHALEN on 12/01/14 1443 Lurasidone HCl 80 Mg Tablet, 80 MG PO DAILY, (Reported) Ondansetron 8 Mg Tab.rapdis, 8 MG PO Q6H PRN for NAUSEA/VOMITING Prescribed by: SHANIQUE JOSHI on 01/09/18 1547 Oxycodone HCl/Acetaminophen 1 Each Tablet, 2 EACH PO Q4H Prescribed by: BOB WHALEN on 12/01/14 1443 Oxycodone HCl/Acetaminophen 1 Each Tablet, 1 TAB PO Q4H PRN for PAIN-MODERATE (5-7) Prescribed by: GARY MENDIETA on 05/26/192129 Potassium Chloride 10 Meq Capsule.er, 10 MEQ PO DAILY, (Reported) Prednisone 10 Mg Tab, 1 TAB PO DAILY Prescribed by: GARY MENDIETA on 05/26/192129 Promethazine HCl 25 Mg Supp.rect, 25 MG RC Q8H PRN for NAUSEA/VOMITING Prescribed by: BOB WHALEN on 12/01/14 1440 Ropinirole HCl 0.25 Mg Tab, 0.25 MG PO DAILY, (Reported) Rosuvastatin Calcium 5 Mg Tablet, 5 MG PO DAILY, (Reported) Sulfamethoxazole/Trimethoprim 1 Each Tablet, 1 EACH PO BID Prescribed by: SHANIQUE JOSHI on 01/09/18 5177 Patient Home Medication List Home Medication List Reviewed: Yes Review of Systems Review of Systems Constitutional: no symptoms reported EENTM: no symptoms reported Respiratory: see HPI Cardiovascular: no symptoms reported Gastrointestinal: no symptoms reported Genitourinary: no symptoms reported : No Musculoskeletal: see HPI Skin: no symptoms reported Psychiatric/Neurological: No Symptoms Reported Hematologic/Lymphatic: No Symptoms Reported Immunological/Allergic: no symptoms reported Past Miywiza-Yqnvul-Cympmj Hx Past Med/Social Hx: Reviewed Nursing Past Med/Soc Hx Patient Social History Alcohol Use: Denies Use Recreational Drug Use: No Smoking Status: Never a Smoker Recent Foreign Travel: No Contact w/Someone Who Travel: No Recent Infectious Disease Expo: No Recent Hopitalizations: No Immunizations Up To Date Tetanus Booster (TDap): Unknown PED Vaccines UTD: Yes Past Medical History Surgeries: Yes (BREAST REDUCTION, LUMPECTOMY, TUBES) Respiratory: No Cardiac: Yes High Cholesterol Neurological: Yes (RESTLESS LEG, dyskinesia, tremors) Headaches /Migraines Reproductive Disorders: No Female Reproductive Disorders: Denies Sexually Transmitted Disease: No HIV/AIDS: No Genitourinary: No Gastrointestinal: Yes Diverticulosis Musculoskeletal: Yes Arthritis Endocrine: Yes Hypothyroidsim HEENT: Yes (blepharospasms) Loss of Vision: Denies Hearing Impairment: Denies Cancer: No Psychosocial: Yes (TAKE MEDS) Anxiety, Bipolar, Depression Integumentary: No Blood Disorders: Yes (factor V Leiden) Adverse Reaction/Blood Tranf: No Physical Exam Vital Signs - First Documented 05/26/19 19:58 Temp 36.4 Pulse 67 Resp 30 B/P (MAP) 121/77 (92) Pulse Ox 100 Capillary Refill : Less Than 3 Seconds Height: 5'4.00" Weight: 230lbs. oz. 104.037338ah; 31.00 BMI Method:Stated General Appearance: WD/WN, mild distress (from coughing) HEENT: PERRL/EOMI, normal ENT inspection, TMs normal, pharynx normal Neck: normal inspection Respiratory: chest non-tender, lungs clear, normal breath sounds, no respiratory distress, no accessory muscle use Cardiovascular: regular rate, rhythm, no edema, no murmur Gastrointestinal: normal bowel sounds, non tender, soft Extremities: non-tender, normal inspection, no pedal edema Neurologic/Psychiatric: rn recovery II-XII nml as tested, no motor/sensory deficits, alert, normal mood/affect, oriented x 3 Skin: normal color, warm/dry Progress/Results/Core Measures Suspected Sepsis Recent Fever Within 48 Hours: No Infection Criteria Present: None New/Unexplained Altered Menta: No Sepsis Screen: No Definite Risk SIRS Temperature: Pulse: 67 Respiratory Rate: 30 Blood Pressure 121 /77 Mean: 92 Results/Orders My Orders Orders - GARY TALBOT MD Benzonatate Capsule (Tessalon Perles) (05/26/19 20:45) Chest Pa/Lat (2 View) (05/26/19 20:38) Ribs, Right 2-3 Views (05/26/19 20:38) Oxycodone/Apap 5/325mg Tablet (Percocet (05/26/19 21:30) Ondansetron Oral Dissolve Tab (Zofran (05/26/19 21:30) Prednisone Tablet (Deltasone Tablet) (05/26/19 21:30) Medications Given in ED Current Medications Medications Dose Ordered Sig/Alfred Route Start Time Stop Time Status Last Admin Dose Admin Benzonatate 200 mg ONCE ONCE PO 05/26/19 20:45 05/26/19 20:46 DC 05/26/19 21:08 200 MG Oxycodone/ Acetaminophen 1 tab ONCE ONCE PO 05/26/19 21:30 05/26/19 21:31 DC 05/26/19 21:43 1 TAB Prednisone 20 mg ONCE ONCE PO 2/25/20 21:30 05/26/19 21:31 DC 05/26/19 21:43 20 MG Vital Signs/I&O 05/26/19 05/26/19 19:58 21:47 Temp 36.4 36.4 Pulse 67 67 Resp 30 18 B/P (MAP) 121/77 (92) 121/77 (92) Pulse Ox 100 100 Capillary Refill : Less Than 3 Seconds Blood Pressure Mean: 92 Progress Note : Progress Note X-rays were unremarkable. I discussed options with patient. I do want her pain to be controlled so that she does not splint her respirations. We selected Percocet for pain control as NSAIDs are not a good option with her Xarelto use and she does not tolerate hydrocodone or tramadol well. She has Phenergan she can take if she develops nausea. She did want to try a short course of steroids again as well. She received Tessalon Perles, Percocet, and prednisone in the ER with prescriptions to follow. Diagnostic Imaging Diagonstic Imaging: Xray Plain Films/CT/US/NM/MRI: chest Comments Two-view chest x-ray viewed by me and report reviewed. See report below: NAME: JAX CALVO [facility] REC#: [id number] PT STATUS: REG ER : 1970 PHYSICIAN: GARY TALBOT MD ADMIT DATE: 05/26/19/ER Signed Date of Exam:05/26/19 CHEST PA/LAT (2 VIEW) INDICATION: Cough and chest pain. PA and lateral views were obtained. FINDINGS: The heart size, mediastinal configuration, and pulmonary vascularity are within normal limits. There is no pleural effusion, pneumothorax, or pneumonia. The osseous structures are unremarkable. IMPRESSION: No acute cardiopulmonary abnormality. Dictated by: Dictated on workstation # [id number] Dict: 05/26/192054 Trans: 05/26/192117 SHERRY [id number] Interpreted by: GHADA LEONARDO MD Electronically signed by: GHADA LEONARDO MD 05/26/192117 Diagonstic Imaging: Xray Plain Films/CT/US/NM/MRI: other (right ribs) Comments Right rib x-rays viewed by me and report reviewed. See report below: NAME: JAX CALVO REC#: [id number] PT STATUS: REG ER : 1970 PHYSICIAN: GARY TALBOT MD ADMIT DATE: 05/26/19/ER Signed Date of Exam:05/26/19 RIBS, RIGHT 2-3 VIEWS INDICATION: Cough and chest pain. Three views were obtained FINDINGS: Right lung is clear. There is no pleural effusion or pneumothorax. There are no displaced rib fractures. IMPRESSION: No displaced rib fractures Dictated by: Dictated on workstation # [id number] Dict: 05/26/192054 Trans: 05/26/192117 SHERRY [id number] Interpreted by: GHADA LEONARDO MD Electronically signed by: GHADA LEONARDO MD 05/26/192117 Departure Impression Primary Impression: Pleuritic chest pain Additional Impression: Cough Disposition: 01 HOME, SELF-CARE Condition: Improved Departure-Patient Inst. Referrals: PAPA WOLFE MD (PCP) Primary Care Physician Patient Instructions: Pleuritic Chest Pain (DC) Add. Discharge Instructions: Use of medications as prescribed. Return to care if you have worsening symptoms despite treatment. Follow-up with her primary care provider as needed. All discharge instructions reviewed with patient and/or family. Voiced understanding. Scripts Benzonatate (TESSALON PERLES) 100 Mg Capsule 200 MG PO TID PRN for COUGH, #20 CAP Prov: GARY TALBOT MD 05/26/19 Prednisone (Prednisone) 10 Mg Tab 1 TAB PO DAILY, #5 TAB Prov: GARY TALBOT MD 05/26/19 Oxycodone HCl/Acetaminophen (Percocet 5-325 mg Tablet) 1 Each Tablet 1 TAB PO Q4H PRN for PAIN-MODERATE (5-7) MDD 6 TABS, #8 TAB Prov: GARY TALBOT MD 05/26/19 Copy Copies To 1: PAPA WOLFE MD, JOSHUA T MD May 26, 2019 21:30
[2019-05-26 21:47] VITALS: BP 121/77
== END 2019-05-26 21:46 | disposition home or self-care (01) ==
LOC: EDUNIT# 19:48 → ER 19:52
DX: R07.81 Pleurodynia (principal); R05 Cough; E78.00 Pure hypercholesterolemia, unspecified; F31.9 Bipolar disorder, unspecified; F41.9 Anxiety disorder, unspecified; Z88.5 Allergy status to narcotic agent
CPT/HCPCS: 71046; 71100

== ENCOUNTER 2020-03-07 19:39 | Emergency (ER) | payer BC ==
[~2020-03-07] VITALS: Ht 160 cm; Wt 69.0 kg
[~2020-03-07 19:39] MED LIST changes: +BENZ100C18 PO; +PRD10T PO
--- NOTE | 2020-03-07 19:54 | ED Abdominal Pain ---
General Chief Complaint: Abdominal/GI Problems Stated Complaint: CONSTIPATION/RECTAL PAIN Source of Information: Patient Exam Limitations: No Limitations History of Present Illness Date Seen by Provider: Mar 07, 2020 Time Seen by Provider: 19:53 Initial Comments To ER to ER by private vehicle with reports of rectal pain, constiipation and leakage of stool. She has not had a bowel movement since Saturday of this last week (5days). She saw her primary care provider who reported that she had a fecal impaction. She has tried stool softeners as well as a saline enema at home without success. No fevers or chills. Most recent colonoscopy was about 10 years ago she states and it showed diverticulosis. She denies any abdominal pain nausea or vomiting. Timing/Duration: 1-2 Days Severity/Quality: Moderate Radiation: No Radiation Activities at Onset: None Allergies and Home Medications Allergies Coded Allergies: tramadol (Verified Allergy, Unknown, 11/24/14) Home Medications Acetamin/Butalbital/Caffeine 1 Tab Tab, PRN, (Reported) Benzonatate 100 Mg Capsule, 200 MG PO TID PRN for COUGH Prescribed by: GARY MENDIETA on 05/26/192129 Citalopram Hydrobromide 20 Mg Tablet, 40 MG PO DAILY, (Reported) Clonazepam 1 Mg Tablet, 1 MG PO PRN, (Reported) Furosemide 40 Mg Tablet, 40 MG PO DAILY, (Reported) Hydroxyzine HCl 10 Mg Tablet, 10 MG PO PRN, (Reported) Ibuprofen 200 Mg Tablet, 800 MG PO Q6H Prescribed by: BOB WHALEN on 12/01/14 144 Lurasidone HCl 80 Mg Tablet, 80 MG PO DAILY, (Reported) Ondansetron 8 Mg Tab.rapdis, 8 MG PO Q6H PRN for NAUSEA/VOMITING Prescribed by: SHANIQUE JOSHI on 01/09/18 1547 Oxycodone HCl/Acetaminophen 1 Each Tablet, 2 EACH PO Q4H Prescribed by: BOB WHALEN on 12/01/14 144 Oxycodone HCl/Acetaminophen 1 Each Tablet, 1 TAB PO Q4H PRN for PAIN-MODERATE (5-7) Prescribed by: GARY MENDIETA on 05/26/192129 Potassium Chloride 10 Meq Capsule.er, 10 MEQ PO DAILY, (Reported) Prednisone 10 Mg Tab, 1 TAB PO DAILY Prescribed by: GARY MENDIETA on 05/26/19 2130 Promethazine HCl 25 Mg Supp.rect, 25 MG RC Q8H PRN for NAUSEA/VOMITING Prescribed by: BOB WHALEN on 12/01/14 1440 Ropinirole HCl 0.25 Mg Tab, 0.25 MG PO DAILY, (Reported) Rosuvastatin Calcium 5 Mg Tablet, 5 MG PO DAILY, (Reported) Sulfamethoxazole/Trimethoprim 1 Each Tablet, 1 EACH PO BID Prescribed by: SHANIQUE JOSHI on 01/09/18 1547 Patient Home Medication List Home Medication List Reviewed: Yes Review of Systems Review of Systems Constitutional: see HPI EENTM: No Symptoms Reported Respiratory: No Symptoms Reported Cardiovascular: No Symptoms Reported Gastrointestinal: See HPI, Constipated Genitourinary: No Symptoms Reported Musculoskeletal: no symptoms reported Skin: no symptoms reported Psychiatric/Neurological: No Symptoms Reported Endocrine: No Symptoms Reported Hematologic/Lymphatic: No Symptoms Reported Past Llpsezp-Fitift-Vaubon Hx Patient Social History Recent Foreign Travel: No Contact w/Someone Who Travel: No Recent Hopitalizations: No Immunizations Up To Date Tetanus Booster (TDap): Unknown PED Vaccines UTD: Yes Past Medical History Surgeries: Yes (BREAST REDUCTION, LUMPECTOMY, TUBES) Respiratory: No Cardiac: Yes High Cholesterol Neurological: Yes (RESTLESS LEG, dyskinesia, tremors) Headaches /Migraines Reproductive Disorders: No Female Reproductive Disorders: Denies Sexually Transmitted Disease: No HIV/AIDS: No Genitourinary: No Gastrointestinal: Yes Diverticulosis Musculoskeletal: Yes Arthritis Endocrine: Yes Hypothyroidsim HEENT: Yes (blepharospasms) Loss of Vision: Denies Hearing Impairment: Denies Cancer: No Psychosocial: Yes (TAKE MEDS) Anxiety, Bipolar, Depression Integumentary: No Blood Disorders: Yes (factor V Leiden) Adverse Reaction/Blood Tranf: No Physical Exam Vital Signs Vital Signs - First Documented 03/07/20 19:47 Temp 36.5 Pulse 72 Resp 18 B/P (MAP) 138/62 (87) Pulse Ox 97 O2 Delivery Room Air Capillary Refill : Height/Weight/BMI Height: 5'4.00" Weight: 230lbs. oz. 104.944160hh; 31.00 BMI Method:Stated General Appearance: WD/WN, no apparent distress Respiratory: normal breath sounds, no respiratory distress Gastrointestinal: normal bowel sounds, soft Extremities: normal range of motion, non-tender Neurologic/Psychiatric: alert, normal mood/affect, oriented x 3 Skin: normal color, warm/dry Progress/Results/Core Measures Results/Orders My Orders Orders - SHANIQUE JOSHI APRN Acute Abd Series (03/07/20 19:57) Lidocaine 2% (Urojet) (Xylocaine Urojet) (03/07/20 20:15) Medications Given in ED Current Medications Medications Dose Ordered Sig/Alfred Route Start Time Stop Time Status Last Admin Dose Admin Lidocaine HCl 10 ml ONCE ONCE TOP 03/07/20 20:15 03/07/20 20:16 DC 03/07/20 20:12 10 ML Vital Signs/I&O 03/07/20 19:47 Temp 36.5 Pulse 72 Resp 18 B/P (MAP) 138/62 (87) Pulse Ox 97 O2 Delivery Room Air Diagnostic Imaging Diagonstic Imaging: Xray Comments NAME: JAX CALVO [facility] REC#: [id number] PT STATUS: REG ER : 1970 PHYSICIAN: SHANIQUE JOSHI APRN ADMIT DATE: 03/07/20/ER Draft Date of Exam:03/07/20 ACUTE ABD SERIES INDICATION: Rectal pain. Constipation. Evaluate for impaction. FINDINGS: The lungs are clear. There is no effusion. There is no pneumothorax. Heart size is appropriate. Pulmonary vascularity appears normal. Views of the abdomen demonstrated large degree of stool at the level of the rectum suggesting an impaction. There also appears to be a moderate to large degree of stool throughout the remainder of the colon. There are a few air-fluid levels which appear to be within nondilated loops of small bowel. There is also an apparent air-fluid level within a loop of colon projecting over the right sacrum. There are no unexpected abdominal calcifications. There is a spinal scoliosis convex to the left in the lumbar spine with apex at L2. There is left lateral subluxation of L2 on L3. IMPRESSION: 1. Large degree of stool within the rectum suggesting impaction. There also is a moderate to large degree of stool throughout the remainder of the colon. While there are no findings of high-grade obstruction or bowel dilation, note is made of multiple air-fluid levels which include both large and small bowel. Dictated on workstation # [id number] Dict: 03/07/202023 Trans: 03/07/202030 [facility] [id number] Interpreted by: LILI COELHO MD Electronically signed by: Departure Communication (Admissions) 2112-small to moderate amount of hard stool removed upon digital rectal exam with Jorge HAQUE at the bedside. Then gave about 250 mL of Castile soap suds enema. She had a small amount of results in the bedside commode, we then gave an additional small volume of Castile soap suds enema with Jerel patient healthcare management consultant at the bedside. Impression Primary Impression: Fecal impaction Disposition: HOME, SELF-CARE Condition: Stable Departure-Patient Inst. Decision time for Depature: 21:14 Referrals: PAPA WOLFE MD (PCP/Family) Primary Care Physician Patient Instructions: Fecal Impaction Add. Discharge Instructions: 1. Increase your water intake and fiber intake over the next few days. Take the magnesium citrate all in one sitting over the course of about 20 to 30 minutes either this evening or tomorrow. Follow-up with Dr. Wolfe this week. All discharge instructions reviewed with patient and/or family. Voiced understanding. SHANIQUE JOSHI [employer] Mar 07, 2020 19:54
[2020-03-07] MEDS ORDERED: LIDOCAINE UROJET 2% GEL 10 ML PKG TOP ONE (20:15)
--- NOTE | 2020-03-07 20:31 | Diagnostic Imaging Report ---
INDICATION: Rectal pain. Constipation. Evaluate for impaction. FINDINGS: The lungs are clear. There is no effusion. There is no pneumothorax. Heart size is appropriate. Pulmonary vascularity appears normal. Views of the abdomen demonstrated large degree of stool at the level of the rectum suggesting an impaction. There also appears to be a moderate to large degree of stool throughout the remainder of the colon. There are a few air-fluid levels which appear to be within nondilated loops of small bowel. There is also an apparent air-fluid level within a loop of colon projecting over the right sacrum. There are no unexpected abdominal calcifications. There is a spinal scoliosis convex to the left in the lumbar spine with apex at L2. There is left lateral subluxation of L2 on L3. IMPRESSION: 1. Large degree of stool within the rectum suggesting impaction. There also is a moderate to large degree of stool throughout the remainder of the colon. While there are no findings of high-grade obstruction or bowel dilation, note is made of multiple air-fluid levels which include both large and small bowel. Dictated by: Dictated on workstation # [id number]
--- NOTE | 2020-03-07 21:13 | NUR ---
darcie freeman at bedside for bowel disimpaction with cooker tender.
[2020-03-07] MEDS ORDERED: MAGNESIUM CITRATE 300 ML BTL PO ONE (21:15)
[2020-03-07 21:45] VITALS: BP 132/61
== END 2020-03-07 21:46 | disposition home or self-care (01) ==
LOC: EDUNIT# 19:39 → ER 19:41
DX: K56.41 Fecal impaction (principal); E78.00 Pure hypercholesterolemia, unspecified; F41.9 Anxiety disorder, unspecified; F31.9 Bipolar disorder, unspecified; Z88.5 Allergy status to narcotic agent; Z79.52 Long term (current) use of systemic steroids
CPT/HCPCS: 74022

== ENCOUNTER → 2021-01-05 | Outpatient (CLI) | payer BC ==
[~2021-01-05] MED LIST changes: -SULF1TAB35 PO; +SULF1TAB38 PO
== END ==
LOC: LABNPT 06:33
PROVIDERS: ATTEND Student in an Organized Health Care Education/Training Program
DX: Z01.812 Encounter for preprocedural laboratory examination (principal); Z20.822 Contact with and (suspected) exposure to COVID-19
CPT/HCPCS: 87635

== ENCOUNTER 2022-03-23 12:57 | Outpatient (RCR) | payer BC | END 2022-03-31 | disposition home or self-care (01) | DX: M54.12 Radiculopathy, cervical region (principal); M25.512 Pain in left shoulder ==

== ENCOUNTER 2022-04-30 15:12 | Outpatient (RCR) | payer BC ==
[~2022-04-30 15:12] MED LIST changes: -POTA10CA43 PO; +POTA10CA44 PO
== END 2022-05-01 | disposition home or self-care (01) ==
DX: M54.12 Radiculopathy, cervical region (principal)

== ENCOUNTER 2022-05-11 08:43 | Outpatient (RCR) | payer BC | END 2022-05-29 | disposition home or self-care (01) | DX: M54.12 Radiculopathy, cervical region (principal) ==

== ENCOUNTER 2023-01-30 17:27 | Emergency (ER) | payer BC ==
[~2023-01-30] VITALS: Ht 160 cm; Wt 72.5 kg
[~2023-01-30 17:27] MED LIST changes: -POTA10CA44 PO; +POTA10CA84 PO
[2023-01-30] MEDS ORDERED: NS IV 1000 ML 1,000 ML IV STA (17:49)
--- NOTE | 2023-01-30 17:57 | ED Headache ---
General Chief Complaint: Head/Cervical Problems Stated Complaint: HEADACHE Source: patient Exam Limitations: no limitations (YOLI TERRELL) History of Present Illness Date Seen by Provider: Jan 30, 2023 Time Seen by Provider: 17:52 Initial Comments Patient is a 52-year-old female who presents to the ED for headache. She states headache started last Saturday.. Head pressure started to the front part of the head and has migrated to the back. She does report some pressure in her shoulders bilateral and upper arms. She has a history of chronic migraines. She does receive emgality injections started this past October. She states she typically gets migraines 8-9 times per month. Now since she has received the injections only 2-3 times per month. Typically migraines is in the frontal part of the head. She states pain and migrates to the back. She does report diagnosed with COVID back in November. She reports lingering symptoms of cough nasal congestion body aches. She started feeling cold today and reports subjective fever. She did go to PT and had near resolution of her migraine. Symptoms started back up about 3 to 4 hours after PT. She does receive Botox for blepharospasm's Every 3 months. She does report photophobia and phonophobia. She does report some vomiting. She denies chest pain, shortness of breath, abdominal pain, diarrhea or dysuria. She does also report a mild cough. She is concerned that this migraine feels different. Patient is not on blood thinners. Denies worst headache of her life. She has no unilateral muscle weakness or sensory changes. (YOLI TERRELL) Allergies and Home Medications Allergies Coded Allergies: tramadol (Verified Allergy, Unknown, 11/24/14) Patient Home Medication List Home Medication List Reviewed: Yes (YOLI TERRELL) Acetamin/Butalbital/Caffeine (Fioricet) 1 Tab Tab, PRN, (Reported) Entered as Reported by: ANSHU MEDINA on 07/21/082025 Benzonatate (Tessalon Perles) 100 Mg Capsule, 200 MG PO TID PRN for COUGH Prescribed by: GARY MENDIETA on 05/26/192129 Citalopram Hydrobromide (Celexa) 20 Mg Tablet, 40 MG PO DAILY, (Reported) Entered as Reported by: ANSHU MEDINA on 07/21/082023 Clonazepam (Clonazepam) 1 Mg Tablet, 1 MG PO PRN, (Reported) Entered as Reported by: EVAN ALLRED on 11/24/141230 Furosemide (Lasix) 40 Mg Tablet, 40 MG PO DAILY, (Reported) Entered as Reported by: EVAN ALLRED on 11/24/14 123 Hydroxyzine HCl (Hydroxyzine HCl) 10 Mg Tablet, 10 MG PO PRN, (Reported) Entered as Reported by: EVAN ALLRED on 11/24/14 123 Ibuprofen (Motrin Ib) 200 Mg Tablet, 800 MG PO Q6H Prescribed by: BOB WHALEN on 12/01/14 144 Lurasidone HCl (Latuda) 80 Mg Tablet, 80 MG PO DAILY, (Reported) Entered as Reported by: EVAN ALLRED on 11/24/141230 Ondansetron (Zofran Odt) 8 Mg Tab.rapdis, 8 MG PO Q6H PRN for NAUSEA/VOMITING Prescribed by: SHANIQUE JOSHI on 01/09/18 154 Oxycodone HCl/Acetaminophen (Percocet 5-325 mg Tablet) 1 Each Tablet, 2 EACH PO Q4H Prescribed by: BOB WHALEN on 12/01/141442 Oxycodone HCl/Acetaminophen (Percocet 5-325 mg Tablet) 1 Each Tablet, 1 TAB PO Q4H PRN for PAIN-MODERATE (5-7) Prescribed by: GARY MENDIETA on 05/26/192129 Potassium Chloride (Potassium Chloride) 10 Meq Capsule.er, 10 MEQ PO DAILY, (Reported) Entered as Reported by: EVAN ALLRED on 11/24/141230 Prednisone (Prednisone) 10 Mg Tab, 1 TAB PO DAILY Prescribed by: GARY MENDIETA on 05/26/192129 Promethazine HCl (Phenergan) 25 Mg Supp.rect, 25 MG RC Q8H PRN for NAUSEA/VOMITING Prescribed by: BOB WHALEN on 12/01/14 144 Ropinirole HCl (Requip) 0.25 Mg Tab, 0.25 MG PO DAILY, (Reported) Entered as Reported by: EVAN ALLRED on 11/24/14 1231 Rosuvastatin Calcium (Crestor) 5 Mg Tablet, 5 MG PO DAILY, (Reported) Entered as Reported by: EVAN ALLRED on 11/24/14 1231 Sulfamethoxazole/Trimethoprim (Bactrim Ds Tablet) 1 Each Tablet, 1 EACH PO BID Prescribed by: SHANIQUE JOSHI on 01/09/18 1547 Review of Systems Review of Systems Constitutional: chills; No diaphoresis; fever, malaise, weakness Eyes: Denies Drainage, Denies Decreased Acuity Ears, Nose, Mouth, Throat: denies ear pain, denies ear discharge Respiratory: cough; No dyspnea on exertion, No short of breath, No wheezing Cardiovascular: No chest pain, No edema Gastrointestinal: No abdominal pain, No diarrhea, No nausea; vomiting Genitourinary: No decreased output, No discharge, No dysuria, No frequency Musculoskeletal: No back pain, No joint pain, No joint swelling, No muscle pain; muscle stiffness Skin: No change in color, No change in hair/nails Psychiatric/Neurological: Headache; Denies Numbness, Denies Paresthesia (YOLI TERRELL) All Other Systems Reviewed Negative Unless Noted: Yes (YOLI TERRELL) Past Ginbyfh-Hdzuws-Pjowxn Hx Patient Social History Tobacco Use?: No Substance use?: No Alcohol Use?: No (YOLI TERRELL) Immunizations Up To Date Tetanus Booster (TDap): Unknown PED Vaccines UTD: Yes (YOIL TERRELL) Seasonal Allergies Seasonal Allergies: No (YOLI TERRELL) Past Medical History Surgery/Hospitalization HX: chronic montoya Surgeries: Yes (BREAST REDUCTION, LUMPECTOMY, bmt) Orthopedic Respiratory: No Cardiac: Yes High Cholesterol Neurological: Yes (RESTLESS LEG, dyskinesia, tremors) Headaches /Migraines Reproductive Disorders: No Female Reproductive Disorders: Denies Sexually Transmitted Disease: No HIV/AIDS: No Genitourinary: No Gastrointestinal: Yes Diverticulosis Musculoskeletal: Yes Arthritis Endocrine: Yes Hypothyroidsim HEENT: Yes (blepharospasms) Loss of Vision: Denies Hearing Impairment: Denies Cancer: No Psychosocial: Yes Anxiety, Bipolar, Depression Integumentary: No Blood Disorders: Yes (factor V Leiden) Adverse Reaction/Blood Tranf: No (YOLI TERRELL) Physical Exam Vital Signs Vital Signs - First Documented 01/30/23 17:40 Temp 36.8 Pulse 66 Resp 16 B/P (MAP) 157/94 (115) Pulse Ox 97 O2 Delivery Room Air (GARY TALBOT MD) Vital Signs Capillary Refill : (YOLI TERRELL) Height, Weight, BMI Height: 5'4.00" Weight: 230lbs. oz. [id number]; 26.00 BMI Method:Stated General Appearance: WD/WN, no apparent distress HEENT: PERRL/EOMI, normal ENT inspection, TMs normal, pharynx normal Neck: non-tender, full range of motion, supple Cardiovascular: regular rate, rhythm, no edema, no gallop Respiratory: chest non-tender, lungs clear, normal breath sounds, no respiratory distress Gastrointestinal: normal bowel sounds, non tender, soft Back: normal inspection, no CVA tenderness Extremities: normal range of motion, non-tender, normal inspection, no pedal edema Psychiatric: alert, oriented x 3 Crainal Nerves: normal hearing, normal speech, PERRL Coordination/Gait: normal finger to nose, normal gait Motor/Sensory: no motor deficit, no sensory deficit Skin: normal color, warm/dry (YOLI TERRELL) Progress/Results/Core Measures Results/Orders Lab Results Laboratory Tests Test 01/30/23 17:52 Range/Units White Blood Count 5.5 4.3-11.0 10^3/uL Red Blood Count 4.26 3.80-5.11 10^6/uL Hemoglobin 13.7 11.5-16.0 g/dL Hematocrit 41 35-52 % Mean Corpuscular Volume 97 80-99 fL Mean Corpuscular Hemoglobin 32 25-34 pg Mean Corpuscular Hemoglobin Concent 33 32-36 g/dL Red Cell Distribution Width 12.5 10.0-14.5 % Platelet Count 182 130-400 10^3/uL Mean Platelet Volume 9.3 9.0-12.2 fL Immature Granulocyte % (Auto) 0 % Neutrophils (%) (Auto) 71 42-75 % Lymphocytes (%) (Auto) 24 12-44 % Monocytes (%) (Auto) 4 0-12 % Eosinophils (%) (Auto) 0 0-10 % Basophils (%) (Auto) 0 0-10 % Neutrophils # (Auto) 4.0 1.8-7.8 10^3/uL Lymphocytes # (Auto) 1.3 1.0-4.0 10^3/uL Monocytes # (Auto) 0.2 0.0-1.0 10^3/uL Eosinophils # (Auto) 0.0 0.0-0.3 10^3/uL Basophils # (Auto) 0.0 0.0-0.1 10^3/uL Immature Granulocyte # (Auto) 0.0 0.0-0.1 10^3/uL Erythrocyte Sedimentation Rate 5 0-30 MM/HR Sodium Level 140 135-145 MMOL/L Potassium Level 3.7 3.6-5.0 MMOL/L Chloride Level 103 98-107 MMOL/L Carbon Dioxide Level 26 21-32 MMOL/L Anion Gap 11 5-14 MMOL/L Blood Urea Nitrogen 12 7-18 MG/DL Creatinine 1.07 0.60-1.30 MG/DL Estimat Glomerular Filtration Rate 62 BUN/Creatinine Ratio 11 Glucose Level 105 70-105 MG/DL Calcium Level 9.7 8.5-10.1 MG/DL Corrected Calcium 9.3 8.5-10.1 MG/DL Total Bilirubin 0.5 0.1-1.0 MG/DL Aspartate Amino Transf (AST/SGOT) 62 H 5-34 U/L Alanine Aminotransferase (ALT/SGPT) 82 H 0-55 U/L Alkaline Phosphatase 60 40-136 U/L C-Reactive Protein High Sensitivity 0.09 0.00-0.50 MG/DL Total Protein 7.2 6.4-8.2 GM/DL Albumin 4.5 3.2-4.5 GM/DL Monoscreen NEGATIVE NEGATIVE (GARY TALBOT MD) Medications Given in ED Current Medications Medications Dose Ordered Sig/Alfred Route Start Time Stop Time Status Last Admin Dose Admin Diphenhydramine HCl 25 mg ONCE ONCE IVP 01/30/23 18:00 01/30/23 18:01 DC 01/30/23 18:06 25 MG Ketorolac Tromethamine 30 mg ONCE ONCE IVP 01/30/23 18:00 01/30/23 18:01 DC 01/30/23 18:07 30 MG Prochlorperazine Edisylate 10 mg ONCE ONCE IV 01/30/23 18:00 01/30/23 18:01 DC 01/30/23 18:06 10 MG (GARY TALBOT MD) Vital Signs/I&O 01/30/23 01/30/23 17:40 19:12 Temp 36.8 Pulse 66 65 Resp 16 16 B/P (MAP) 157/94 (115) 118/76 Pulse Ox 97 99 O2 Delivery Room Air Room Air (GARY TALBOT MD) Departure Communication (PCP) Patient is a 52-year-old female history of migraines receives Emgality injections, Botox and PT presents ED for headache since Saturday. Was seen today by PT had right needling with improvement of her headache. She headache returned when she went home. She is experiencing some vomiting. COVID in November. She has had a mild cough she reports cold chills subjective fever. She is afebrile. Denies taking anticoagulant. Patient without any focal neural deficits. Not currently on anticoagulants. No strokelike symptoms. She has no meningeal signs. She does have some pain in her upper shoulders which she has had in the past. Did add a CRP ESR with generalized lab work. Chest x-ray for the continuous cough. CT scan for the abnormal headache which is not her typical migraine. Denies worst headache of her life. Rates pain [address] scan of the head was unremarkable. She has no scalp tenderness suggesting giant cell arteritis. Patient is currently on steroids. This unlikely polymyalgia rheumatica. No history of autoimmune diseases. No history of RA. She has no specific meningeal signs. No nuchal rigidity. She is afebrile. Negative jolt test. CBC, CMP was grossly unremarkable. Normal ESR and CRP. Received a migraine cocktail with near resolution of her symptoms. Not concern for meningitis or subarachnoid hemorrhage. There is no evidence of mass. She does have a history of neck pain and does receive Botox. Since improvement of her symptoms and currently asymptomatic patient will be discharged. She has no chest pain or shortness of breath but does report the cough. Did add a chest x- ray which was negative for pneumonia. Other etiologies would be viral in nature however this appears to be more related to a migraine. She does have photophobia and phonophobia which she experienced with her other migraines. She rates pain 1 out of 10 at this time would like to be discharged. Return precaution were discussed (YOLI TERRELL) Impression Primary Impression: Migraine Disposition: 01 HOME, SELF-CARE Condition: Stable Departure-Patient Inst. Decision time for Depature: 18:50 (YOLI TERRELL) Referrals: PAPA WOLFE MD (PCP/Family) Primary Care Physician Patient Instructions: Migraines (DC) ATTENDING PHYSICIAN NOTE: I was physically present as attending physician in the emergency department during the care of this patient, but I was not directly involved in the decision making or delivery of care for this patient. (GARY TALBOT MD) YOLI TERRELL Jan 30, 2023 17:56 GARY TALBOT MD Jan 30, 2023 18:44
[2023-01-30] MEDS ORDERED: PROCHLORPERAZINE INJ 10 MG/2ML VIAL IV ONE (18:00)
[2023-01-30] MEDS ORDERED: diphenhydrAMINE INJ 50 MG/ML VIAL IVP ONE (18:00)
[2023-01-30] MEDS ORDERED: KETOROLAC INJ 30 MG/ML VIAL IVP ONE (18:00)
[2023-01-30 18:01] LABS: BASOPHILS % (AUTO) 0 % (0-10); EOSINOPHILS % (AUTO) 0 % (0-10); HEMATOCRIT 41 % (35-52); HEMOGLOBIN 13.7 g/dL (11.5-16.0); LYMPHOCYTES # (AUTO) 1.3 10^3/uL (1.0-4.0); LYMPHOCYTES % (AUTO) 24 % (12-44); MEAN CORPUSCULAR HEMOGLOBIN 32 pg (25-34); MEAN CORPUSCULAR HGB CONC 33 g/dL (32-36); MEAN CORPUSCULAR VOLUME 97 fL (80-99); MEAN PLATELET VOLUME 9.3 fL (9.0-12.2); MONOCYTES # (AUTO) 0.2 10^3/uL (0.0-1.0); MONOCYTES % (AUTO) 4 % (0-12); NEUTROPHILS % (AUTO) 71 % (42-75); PLATELET COUNT 182 10^3/uL (130-400); WHITE BLOOD COUNT 5.5 10^3/uL (4.3-11.0)
[2023-01-30 18:08] LABS: ALBUMIN 4.5 GM/DL (3.2-4.5); POTASSIUM 3.7 MMOL/L (3.6-5.0)
[2023-01-30 18:09] LABS: CALCIUM 9.7 MG/DL (8.5-10.1)
[2023-01-30 18:10] LABS: TOTAL PROTEIN 7.2 GM/DL (6.4-8.2)
[2023-01-30 18:12] LABS: BILIRUBIN,TOTAL 0.5 MG/DL (0.1-1.0)
[2023-01-30 18:14] LABS: CREATININE SERUM 1.07 MG/DL (0.60-1.30)
[2023-01-30 18:21] LABS: ERYTHROCYTE SEDIMENTATION RATE 5 MM/HR (0-30)
--- NOTE | 2023-01-30 18:23 | Diagnostic Imaging Report ---
INDICATION: Cough COMPARISON: 05/26/2019 TECHNIQUE: Single radiograph of the chest dated 01/30/2023. FINDINGS: The cardiac silhouette is within normal limits in size. No significant pulmonary vascular congestion. The lungs are clear. No pleural effusion. No pneumothorax. S-shaped curvature of the spine. No acute osseous abnormality. IMPRESSION: Similar-appearing examination without acute cardiopulmonary abnormality. Dictated by: Dictated on workstation # [id number]
--- NOTE | 2023-01-30 18:24 | Diagnostic Imaging Report ---
PROCEDURE: CT head without contrast. TECHNIQUE: Multiple contiguous axial images were obtained through the brain without the use of intravenous contrast. Auto Exposure Controls were utilized during the CT exam to meet ALARA standards for radiation dose reduction. INDICATION: Head pressure and pain. COMPARISON: None available. FINDINGS: CT of the head demonstrates no evidence of an acute intracranial abnormality. There is no evidence of intracranial hemorrhage. There is no extra-axial fluid collection, mass effect or shift. Kelly and white matter differentiation appear preserved. There is no abnormal hypodensity within the basal ganglia. The ventricles are appropriate in size and configuration. There is no evidence of hydrocephalus. The basilar cisterns are patent. The posterior fossa is unremarkable. Mastoids and visualized paranasal sinuses appear clear. Orbital contents are unremarkable. There is no calvarial abnormality. IMPRESSION: 1. No CT evidence of an acute intracranial abnormality. Dictated by: Dictated on workstation # [id number]
[2023-01-30 19:12] VITALS: BP 118/76
== END 2023-01-30 19:12 | disposition home or self-care (01) ==
LOC: EDUNIT# 17:27 → ER 17:30
DX: G43.909 Migraine, unspecified, not intractable, without status migrainosus (principal); R05.9 Cough, unspecified; R50.9 Fever, unspecified; Z88.6 Allergy status to analgesic agent
CPT/HCPCS: 36415; 70450; 71045; 80053; 85025; 85652; 86141; 86308

== ENCOUNTER 2023-02-05 08:02 | Outpatient (RCR) | payer BC | END 2023-02-25 16:03 | disposition home or self-care (01) | PROVIDERS: ATTEND Physical Therapist | DX: M54.2 Cervicalgia (principal); G43.809 Other migraine, not intractable, without status migrainosus ==

== ENCOUNTER 2023-03-06 17:27 | Emergency (ER) | payer BC ==
[~2023-03-06] VITALS: Ht 160 cm; Wt 72.5 kg
[2023-03-06] MEDS ORDERED: KETOROLAC INJ 30 MG/ML VIAL IVP STA (18:02)
--- NOTE | 2023-03-06 18:12 | ED Headache ---
General Chief Complaint: Head/Cervical Problems Stated Complaint: 3 DAY MIGRAINE Source: patient History of Present Illness Date Seen by Provider: Mar 06, 2023 Time Seen by Provider: 17:54 Initial Comments PT ARRIVES VIA POV FROM HOME WITH A FEMALE C/O MIGRAINE X 3 DAYS Allergies and Home Medications Allergies Coded Allergies: tramadol (Verified Allergy, Unknown, 11/24/14) Patient Home Medication List Acetamin/Butalbital/Caffeine (Fioricet) 1 Tab Tab, PRN, (Reported) Entered as Reported by: ANSHU MEDINA on 07/21/082025 Benzonatate (Tessalon Perles) 100 Mg Capsule, 200 MG PO TID PRN for COUGH Prescribed by: GARY MENDIETA on 05/26/192129 Citalopram Hydrobromide (Celexa) 20 Mg Tablet, 40 MG PO DAILY, (Reported) Entered as Reported by: ANSHU MEDINA on 07/21/082023 Clonazepam (Clonazepam) 1 Mg Tablet, 1 MG PO PRN, (Reported) Entered as Reported by: EVAN ALLRED on 11/24/14 1231 Furosemide (Lasix) 40 Mg Tablet, 40 MG PO DAILY, (Reported) Entered as Reported by: EVAN ALLRED on 11/24/14 1231 Hydroxyzine HCl (Hydroxyzine HCl) 10 Mg Tablet, 10 MG PO PRN, (Reported) Entered as Reported by: EVAN ALLRED on 11/24/14 1231 Ibuprofen (Motrin Ib) 200 Mg Tablet, 800 MG PO Q6H Prescribed by: BOB WHALEN on 12/01/14 1443 Lurasidone HCl (Latuda) 80 Mg Tablet, 80 MG PO DAILY, (Reported) Entered as Reported by: EVAN ALLRED on 11/24/14 1231 Ondansetron (Zofran Odt) 8 Mg Tab.rapdis, 8 MG PO Q6H PRN for NAUSEA/VOMITING Prescribed by: SHANIQUE JOSHI on 01/09/18 1547 Oxycodone HCl/Acetaminophen (Percocet 5-325 mg Tablet) 1 Each Tablet, 2 EACH PO Q4H Prescribed by: BOB WHALEN on 12/01/14 1443 Oxycodone HCl/Acetaminophen (Percocet 5-325 mg Tablet) 1 Each Tablet, 1 TAB PO Q4H PRN for PAIN-MODERATE (5-7) Prescribed by: GARY MENDIETA on 05/26/192129 Potassium Chloride (Potassium Chloride) 10 Meq Capsule.er, 10 MEQ PO DAILY, (Reported) Entered as Reported by: EVAN ALLRED on 11/24/14 123 Prednisone (Prednisone) 10 Mg Tab, 1 TAB PO DAILY Prescribed by: GARY MENDIETA on 05/26/192129 Promethazine HCl (Phenergan) 25 Mg Supp.rect, 25 MG RC Q8H PRN for NA USEA/VOMITING Prescribed by: BOB WHALEN on 12/01/14 144 Ropinirole HCl (Requip) 0.25 Mg Tab, 0.25 MG PO DAILY, (Reported) Entered as Reported by: EVAN ALLRED on 11/24/14 123 Rosuvastatin Calcium (Crestor) 5 Mg Tablet, 5 MG PO DAILY, (Reported) Entered as Reported by: EVAN ALLRED on 11/24/14 123 Sulfamethoxazole/Trimethoprim (Bactrim Ds Tablet) 1 Each Tablet, 1 EACH PO BID Prescribed by: SHANIQUE JOSHI on 01/09/18 1547 Past Vnllucb-Vgjrpz-Wsycbz Hx Immunizations Up To Date Tetanus Booster (TDap): Unknown PED Vaccines UTD: Yes Seasonal Allergies Seasonal Allergies: No Past Medical History Surgery/Hospitalization HX: chronic montoya Surgeries: Yes (BREAST REDUCTION, LUMPECTOMY, bmt) Orthopedic Respiratory: No Cardiac: Yes High Cholesterol Neurological: Yes (RESTLESS LEG, dyskinesia, tremors) Headaches /Migraines Reproductive Disorders: No Female Reproductive Disorders: Denies Sexually Transmitted Disease: No HIV/AIDS: No Genitourinary: No Gastrointestinal: Yes Diverticulosis Musculoskeletal: Yes Arthritis Endocrine: Yes Hypothyroidsim HEENT: Yes (blepharospasms) Loss of Vision: Denies Hearing Impairment: Denies Cancer: No Psychosocial: Yes Anxiety, Bipolar, Depression Integumentary: No Blood Disorders: Yes (factor V Leiden) Adverse Reaction/Blood Tranf: No Physical Exam Vital Signs Vital Signs - First Documented 03/06/23 17:53 Temp 36.5 Pulse 53 Resp 18 B/P (MAP) 132/82 (99) Pulse Ox 98 O2 Delivery Room Air Capillary Refill : Height, Weight, BMI Height: 5'4.00" Weight: 230lbs. oz. 104.215318qq; 28.00 BMI Method:Stated Progress/Results/Core Measures Results/Orders Lab Results Laboratory Tests Test 03/06/23 18:08 03/06/23 19:41 Range/Units White Blood Count 6.3 4.3-11.0 10^3/uL Red Blood Count 4.39 3.80-5.11 10^6/uL Hemoglobin 14.0 11.5-16.0 g/dL Hematocrit 42 35-52 % Mean Corpuscular Volume 95 80-99 fL Mean Corpuscular Hemoglobin 32 25-34 pg Mean Corpuscular Hemoglobin Concent 34 32-36 g/dL Red Cell Distribution Width 12.5 10.0-14.5 % Platelet Count 213 130-400 10^3/uL Mean Platelet Volume 10.0 9.0-12.2 fL Immature Granulocyte % (Auto) 1 % Neutrophils (%) (Auto) 57 42-75 % Lymphocytes (%) (Auto) 36 12-44 % Monocytes (%) (Auto) 6 0-12 % Eosinophils (%) (Auto) 1 0-10 % Basophils (%) (Auto) 0 0-10 % Neutrophils # (Auto) 3.5 1.8-7.8 10^3/uL Lymphocytes # (Auto) 2.3 1.0-4.0 10^3/uL Monocytes # (Auto) 0.4 0.0-1.0 10^3/uL Eosinophils # (Auto) 0.0 0.0-0.3 10^3/uL Basophils # (Auto) 0.0 0.0-0.1 10^3/uL Immature Granulocyte # (Auto) 0.0 0.0-0.1 10^3/uL Percent Immature Platelet Fraction 1.5 0.0-7.6 % Erythrocyte Sedimentation Rate 5 0-30 MM/HR Sodium Level 143 135-145 MMOL/L Potassium Level 3.2 L 3.6-5.0 MMOL/L Chloride Level 107 98-107 MMOL/L Carbon Dioxide Level 25 21-32 MMOL/L Anion Gap 11 5-14 MMOL/L Blood Urea Nitrogen 9 7-18 MG/DL Creatinine 0.95 0.60-1.30 MG/DL Estimat Glomerular Filtration Rate 72 BUN/Creatinine Ratio 9 Glucose Level 104 70-105 MG/DL Calcium Level 9.3 8.5-10.1 MG/DL Corrected Calcium 9.5 8.5-10.1 MG/DL Magnesium Level 2.0 1.6-2.4 MG/DL Total Bilirubin 0.5 0.1-1.0 MG/DL Aspartate Amino Transf (AST/SGOT) 29 5-34 U/L Alanine Aminotransferase (ALT/SGPT) 28 0-55 U/L Alkaline Phosphatase 56 40-136 U/L C-Reactive Protein High Sensitivity 0.12 0.00-0.50 MG/DL Total Protein 6.0 L 6.4-8.2 GM/DL Albumin 3.7 3.2-4.5 GM/DL My Orders Orders - PAPA BROWNE DO Ed Iv/Invasive Line Start (03/06/23 17:54) Monitor-Rhythm Ecg Trace Only (03/06/23 17:54) Cbc And Automated Diff (03/06/23 17:54) Comprehensive Metabolic Panel (03/06/23 17:54) Hs C Reactive Protein (03/06/23 17:54) Magnesium (03/06/23 17:54) Erythrocyte Sedimentation Rate (03/06/23 17:54) Ed Iv/Invasive Line Start (03/06/23 18:02) Lactated Ringers 1,000 Ml (Lactated Ring (03/06/23 18:15) Ketorolac Injection (Ketorolac Injection (03/06/23 18:02) Diphenhydramine Injection (Diphenhydram (03/06/23 18:15) Prochlorperazine Injection (Prochlorpera (03/06/23 18:15) Diphenhydramine Injection (Diphenhydram (03/06/23 19:00) Potassium Chloride (Tablet) (Potassium C (03/06/23 20:30) Medications Given in ED Current Medications Medications Dose Ordered Sig/Alfred Route Start Time Stop Time Status Last Admin Dose Admin Diphenhydramine HCl 25 mg ONCE ONCE IVP 03/06/23 19:00 03/06/23 19:01 DC 03/06/23 19:00 25 MG Diphenhydramine HCl 50 mg ONCE ONCE IVP 03/06/23 18:15 03/06/23 18:16 DC 03/06/23 18:22 50 MG Lactated Ringer's 1,000 ml @ 0 mls/hr Q0M ONCE IV 03/06/23 18:15 03/06/23 18:16 DC 03/06/23 18:23 1,000 MLS/HR Prochlorperazine Edisylate 10 mg ONCE ONCE IV 03/06/23 18:15 03/06/23 18:16 DC 03/06/23 18:23 10 MG Vital Signs/I&O 03/06/23 17:53 Temp 36.5 Pulse 53 Resp 18 B/P (MAP) 132/82 (99) Pulse Ox 98 O2 Delivery Room Air Progress Progress Note : Progress Note C/O RESTLESS LEGS--ADDITIONAL BENADRYL GIVEN AT DISMISSAL, PT NOW STATES SHE HAS A HISTORY OF RESTLESS LEG SYNDROME, AND USED TO TAKE MEDICATION FOR IT, BUT DOES NOT TAKE IT ANYMORE SHE ALSO REPORTS AT DISMISSAL, THAT SHE HAS ZOFRAN AND PHENERGAN AT HOME, BUT ONLY TOOK ZOFRAN ONCE, AND HAS NOT TAKEN PHENERGAN BECAUSE IT MAKES HER TIRED. HEADACHE AND NAUSEA RESOLVED AT DISMISSAL Departure Impression Primary Impression: Migraine Additional Impression: Hypokalemia Disposition: 01 HOME, SELF-CARE Condition: Improved Departure-Patient Inst. Decision time for Depature: 20:28 Referrals: PAPA WOLFE MD (PCP/Family) Primary Care Physician Patient Instructions: Migraines in adults Add. Discharge Instructions: CONTINUE YOUR MEDICATIONS PRESCRIBED INCREASE YOUR FLUID INTAKE FOLLOW UP WITH YOUR REGULAR DR OR YOUR NEUROLOGIST IF SYMPTOMS PERSIST All discharge instructions reviewed with patient and/or family. Voiced und erstanding. PAPA BROWNE DO Mar 06, 2023 18:12
[2023-03-06] MEDS ORDERED: LACTATED RINGERS 1,000 ML 1,000 ML IV ONE (18:15)
[2023-03-06] MEDS ORDERED: PROCHLORPERAZINE INJ 10 MG/2ML VIAL IV ONE (18:15)
[2023-03-06] MEDS ORDERED: diphenhydrAMINE INJ 50 MG/ML VIAL IVP ONE ×2 (18:15→19:00)
[2023-03-06 18:24] LABS: BASOPHILS % (AUTO) 0 % (0-10); EOSINOPHILS % (AUTO) 1 % (0-10); HEMATOCRIT 42 % (35-52); LYMPHOCYTES # (AUTO) 2.3 10^3/uL (1.0-4.0); LYMPHOCYTES % (AUTO) 36 % (12-44); MEAN CORPUSCULAR HEMOGLOBIN 32 pg (25-34); MEAN CORPUSCULAR HGB CONC 34 g/dL (32-36); MEAN CORPUSCULAR VOLUME 95 fL (80-99); MONOCYTES # (AUTO) 0.4 10^3/uL (0.0-1.0); MONOCYTES % (AUTO) 6 % (0-12); NEUTROPHILS # (AUTO) 3.5 10^3/uL (1.8-7.8); NEUTROPHILS % (AUTO) 57 % (42-75); PLATELET COUNT 213 10^3/uL (130-400); WHITE BLOOD COUNT 6.3 10^3/uL (4.3-11.0)
[2023-03-06 18:45] LABS: ERYTHROCYTE SEDIMENTATION RATE 5 MM/HR (0-30)
[2023-03-06 20:06] LABS: ALBUMIN 3.7 GM/DL (3.2-4.5); POTASSIUM 3.2 MMOL/L (3.6-5.0)
[2023-03-06 20:08] LABS: CALCIUM 9.3 MG/DL (8.5-10.1)
[2023-03-06 20:10] LABS: BILIRUBIN,TOTAL 0.5 MG/DL (0.1-1.0)
[2023-03-06 20:12] LABS: CREATININE SERUM 0.95 MG/DL (0.60-1.30)
[2023-03-06] MEDS ORDERED: POTASSIUM CHLORIDE 10 MEQ TABLET PO ONE (20:30)
[2023-03-06 20:42] VITALS: BP 107/74
== END 2023-03-06 20:44 | disposition home or self-care (01) ==
LOC: EDUNIT# 17:27 → ER 17:30
DX: G43.909 Migraine, unspecified, not intractable, without status migrainosus (principal); E87.6 Hypokalemia
CPT/HCPCS: 36415; 80053; 83735; 85025; 85652; 86141